=== PATIENT | male | born 1950 | race Caucasian/White ===

== ENCOUNTER → 2016-07-30 | Outpatient (CLI) | payer OTHER ==
[~2016-07-30] MED LIST: GLIM1TAB2 PO; LISI-729 PO; SIMV5TAB2 PO; SITA50TA5 PO
[2016-07-30 10:54] LABS: HEMATOCRIT 40.7 % (42-52); MEAN CELL VOLUME 90.6 fL (80-100); MEAN CORPUSCULAR HEMOGLOBIN 30.3 pg (25-34); MEAN CORPUSCULAR HGB CONC 33.4 g/dl (32-36); MEAN PLATELET VOLUME 10.7 fL (7.4-10.4); PLATELET COUNT 194 K/uL (130-400); RED BLOOD COUNT 4.49 M/uL (4.7-6.1); WHITE BLOOD COUNT 7.93 K/uL (4.8-10.8)
[2016-07-30 11:22] LABS: ALT/SGPT 26 U/L (12-78); AST/SGOT 13 U/L (15-37); BLOOD UREA NITROGEN 26 mg/dl (7-18); BUN/CREATININE RATIO 18.6 (10-20); CALCIUM 8.5 mg/dl (8.5-10.1); CARBON DIOXIDE 29 mmol/L (21-32); CHLORIDE 108 mmol/L (98-107); GLUCOSE 111 mg/dl (70-99); POTASSIUM 4.3 mmol/L (3.5-5.1); SODIUM 144 mmol/L (136-145)
[2016-07-30 11:33] LABS: ALB/GLOB RATIO 1.4 (0.9-2); ALKALINE PHOSPHATASE 79 U/L (45-117); CHOLESTEROL 100 mg/dl (0-200); CHOLESTEROL/HDL RATIO 2.6; HDL CHOLESTEROL 39 mg/dl; LDL CHOLESTEROL CALCULATED 47 mg/dl; TRIGLYCERIDES 70 mg/dl (0-150); VERY LOW DENSITY LIPOPROT CALC 14 mg/dl
[2016-07-30 11:34] LABS: ESTIMATED AVERAGE GLUCOSE 146 mg/dl; HA1C FLAG Normal (Normal)
== END | disposition home or self-care (01) ==
LOC: C.LABBC 08:21
PROVIDERS: ATTEND Internal Medicine Geriatric Medicine
DX: I10 Essential (primary) hypertension (principal); E78.5 Hyperlipidemia, unspecified; E11.65 Type 2 diabetes mellitus with hyperglycemia

== ENCOUNTER 2017-02-09 13:37 | Emergency (ER) | payer OTHER ==
[~2017-02-09] VITALS: Ht 188 cm; Wt 113.7 kg
[2017-02-09 13:47] VITALS: TEMP 36.9; Ht 188 cm; Wt 113.7 kg
[2017-02-09] MEDS ORDERED: LISI-729 PO (14:53)
[2017-02-09] MEDS ORDERED: SITA50TA5 PO (14:53)
[2017-02-09] MEDS ORDERED: SIMV5TAB2 PO (14:53)
[2017-02-09] MEDS ORDERED: GLIM1TAB2 PO (14:53)
[2017-02-09 14:58] LABS: BASO % 0.2 %; BASO ABS # 0.02 K/uL (0-0.2); COMPLETE YES; EOS % 1.4 %; IG% 0.3 %; LYMPH % 12.1 %; LYMPH ABS # 1.27 K/uL (1.2-3.4); MEAN CELL VOLUME 88.3 fL (80-100); MEAN CORPUSCULAR HEMOGLOBIN 30.2 pg (25-34); MEAN CORPUSCULAR HGB CONC 34.3 g/dl (32-36); MEAN PLATELET VOLUME 10.3 fL (7.4-10.4); MONO % 6.3 %; NEUT % 79.7 %; PLATELET COUNT 163 K/uL (130-400); RED BLOOD COUNT 4.53 M/uL (4.7-6.1); WHITE BLOOD COUNT 10.53 K/uL (4.8-10.8)
[2017-02-09] MEDS ORDERED: OPTIRAY 320 IV PRN (15:15)
[2017-02-09 15:20] LABS: BUN/CREATININE RATIO 18.9 (10-20); CALCIUM 8.8 mg/dl (8.5-10.1); CREATININE 1.4 mg/dl (0.60-1.40); POTASSIUM 3.8 mmol/L (3.5-5.1)
--- NOTE | 2017-02-09 15:45 | DIAGNOSTIC IMAGING REPORT ---
CT SCAN OF THE ABDOMEN AND PELVIS WITH IV CONTRAST CLINICAL HISTORY: Left lower quadrant abdominal pain. COMPARISON STUDY: Renal ultrasound dated 08/05/13. TECHNIQUE: Following the IV administration of 116 cc of Optiray 320, CT scan of the abdomen and pelvis is performed from the lung bases to the proximal femora. Images are reviewed in the axial, sagittal, and coronal planes. IV contrast was administered without complication. Automated dose control exposure was utilized. A dose lowering technique was utilized adhering to the principles of ALARA. The examination is degraded by motion artifact. CT DOSE: 1106.39 mGy.cm FINDINGS: Lung bases: The heart is normal in size and without pericardial effusion. There is elevation right hemidiaphragm and bibasilar atelectasis. No airspace consolidation or pleural effusion is seen emphysema is suggested. Liver: The contrast-enhanced liver is normal in size, contour, and attenuation. There is no intrahepatic biliary ductal dilatation. The hepatic veins and portal veins are patent. Gallbladder: Unremarkable. Spleen: Normal in size and attenuation. Pancreas: There is moderate fatty atrophy of the pancreas. There is mild inflammatory stranding seen around the pancreatic head no peripancreatic fluid is seen. The gland enhances homogeneously. The splenic vein is patent. No upper abdominal fluid collection is identified. Adrenal glands: Unremarkable. Kidneys: The contrast enhanced kidneys demonstrate cortical atrophy end are without hydronephrosis. The kidneys enhance symmetrically. There are numerous (greater than 20) bilateral renal cysts. The largest measures 8 cm and arises from the lower pole of the right kidney. Additional subcentimeter cortical hypodensities also likely represent cysts but are too small for definitive characterization. Abdominal vasculature: The abdominal aorta is normal in course and caliber noting mild atherosclerotic calcification. Bowel: The small bowel and colon are normal in course and caliber. The appendix is well-visualized and normal. Peritoneum: There is no intraperitoneal free air or abdominal ascites. There is a small fat-containing umbilical hernia. Lymphadenopathy: None. Pelvic viscera: The bladder, prostate, and seminal vesicles are normal as visualized. Skeletal structures: There are bilateral pars defects at L5. No anterolisthesis is seen at L5-S1. No lytic or blastic lesions are seen. IMPRESSION: Findings are most consistent with mild acute pancreatitis. Correlation with clinical findings and serum amylase/lipase levels will be required. Electronically signed by: Skip Mario M.D. 02/09/2017 3:44 PM Dictated Date/Time: 02/09/2017 3:38 PM
[2017-02-09 16:42] VITALS: O2SAT 98
[2017-02-09 16:53] LABS: URINE APPEARANCE CLEAR (CLEAR); URINE BILIRUBIN NEG (NEG); URINE COLOR YELLOW; URINE EPITHELIAL CELL AUTO 0-5 /lpf (0-5); URINE NITRITE NEG (NEG); URINE SPECIFIC GRAVITY > 1.045 (1.000-1.030); UROBILINOGEN NEG (NEG); ZZUR CULT IF INDIC CLEAN CATCH NO
[2017-02-09 16:54] LABS: MANUAL MICROSCOPIC REQUIRED? NO; REVIEW REQ? NO
[2017-02-09 17:45] VITALS: BP 128/63; PULSE 78
--- NOTE | 2017-02-09 20:13 | EMERGENCY ROOM VISIT NOTE ---
History Report prepared by [place]: Nilay Finn Under the Supervision of: Dr. Bakari River D.O. First contact with patient: 14:08 Chief Complaint: UNABLE TO VOID Stated Complaint: DIFFICULTING W/URINATION, CONSTIPATION History of Present Illness The patient is a 66 year old male who presents to the Emergency Room with complaints of inability to void that began today. He was able to urinate around two hours ago, but states that he still feels he needs to urinate. He also notes that he had a small bowel movement earlier today, but is having lower abdominal pain that is consistent with constipation. He notes the pain is in his left lower quadrant and comes and goes intermittently. He notes it is normally relieved after having a bowel movement. He denies any headache, chest pain, shortness of breath, nausea, vomiting, or abnormal urinary symptoms. He denies any back pain weakness or numbness. He currently feels like he needs to urinate. No urinary frequency, urgency or dysuria. Source of History: patient Onset: today Position: other () Symptom Intensity: moderate Quality: other (Unable to void) Timing: intermittent Associated Symptoms: + abdominal pain, No headache, No chest pain, No SOB, No nausea, No vomiting, No back pain, No diarrhea, No urinary symptoms (no burning), No weakness, No numbness Review of Systems See HPI for pertinent positives & negatives. A total of 10 systems reviewed and were otherwise negative. Past Medical & Surgical Medical Problems: (1) HTN (hypertension) (2) IBS (irritable bowel syndrome) Family History Omitted secondary to the patient's age. Social History Smoking Status: Never Smoker Smokeless Tobacco Use: No Drug Use: none Occupation Status: retired Current/Historical Medications Scheduled Glimepiride (Glimepiride), 1 TAB PO DAILY Simvastatin (Zocor), 5 MG PO QPM Sitagliptin-Metformin Hcl (Janumet), 1 TAB PO BID Miscellaneous Medications Lisinopril (Prinivil), 5 MG PO Allergies Coded Allergies: No Known Allergies (Unverified , 02/09/17) Physical Exam Vital Signs Date Time Temp Pulse Resp B/P (MAP) Pulse Ox O2 Delivery O2 Flow Rate FiO2 02/09/17 17:45 78 18 128/63 02/09/17 16:42 83 17 117/73 98 02/09/17 13:47 36.9 82 20 142/53 99 Room Air Physical Exam GENERAL: alert, well appearing, well nourished, no distress, non-toxic, sitting up in the chair. EYE EXAM: normal conjunctiva OROPHARYNX: no exudate, no erythema, lips, buccal mucosa, and tongue normal and mucous membranes are moist NECK: supple, no nuchal rigidity, no adenopathy, non-tender LUNGS: Clear to auscultation. Normal chest wall mechanics HEART: no murmurs, S1 normal and S2 normal ABDOMEN: abdomen soft, faint tenderness in the LLQ, normo-active bowel sounds, no masses, no rebound or guarding. BACK: Back is symmetrical on inspection and there is no deformity, no midline tenderness, no CVA tenderness. SKIN: no rashes and no bruising UPPER EXTREMITIES: upper extremities are grossly normal. LOWER EXTREMITIES: No pitting edema. NEURO EXAM: Normal sensorium, cranial nerves II-XII grossly intact, normal speech, no gross weakness of arms, no gross weakness of legs. Medical Decision & Procedures ER Provider Diagnostic Interpretation: Radiology results as stated below per my review and the radiologist's interpretation: CT SCAN OF THE ABDOMEN AND PELVIS WITH IV CONTRAST CLINICAL HISTORY: Left lower quadrant abdominal pain. COMPARISON STUDY: Renal ultrasound dated 08/05/13. TECHNIQUE: Following the IV administration of 116 cc of Optiray 320, CT scan of the abdomen and pelvis is performed from the lung bases to the proximal femora. Images are reviewed in the axial, sagittal, and coronal planes. IV contrast was administered without complication. Automated dose control exposure was utilized. A dose lowering technique was utilized adhering to the principles of ALARA. The examination is degraded by motion artifact. CT DOSE: 1106.39 mGy.cm FINDINGS: Lung bases: The heart is normal in size and without pericardial effusion. There is elevation right hemidiaphragm and bibasilar atelectasis. No airspace consolidation or pleural effusion is seen emphysema is suggested. Liver: The contrast-enhanced liver is normal in size, contour, and attenuation. There is no intrahepatic biliary ductal dilatation. The hepatic veins and portal veins are patent. Gallbladder: Unremarkable. Spleen: Normal in size and attenuation. Pancreas: There is moderate fatty atrophy of the pancreas. There is mild inflammatory stranding seen around the pancreatic head no peripancreatic fluid is seen. The gland enhances homogeneously. The splenic vein is patent. No upper abdominal fluid collection is identified. Adrenal glands: Unremarkable. Kidneys: The contrast enhanced kidneys demonstrate cortical atrophy end are without hydronephrosis. The kidneys enhance symmetrically. There are numerous (greater than 20) bilateral renal cysts. The largest measures 8 cm and arises from the lower pole of the right kidney. Additional subcentimeter cortical hypodensities also likely represent cysts but are too small for definitive characterization. Abdominal vasculature: The abdominal aorta is normal in course and caliber noting mild atherosclerotic calcification. Bowel: The small bowel and colon are normal in course and caliber. The appendix is well-visualized and normal. Peritoneum: There is no intraperitoneal free air or abdominal ascites. There is a small fat-containing umbilical hernia. Lymphadenopathy: None. Pelvic viscera: The bladder, prostate, and seminal vesicles are normal as visualized. Skeletal structures: There are bilateral pars defects at L5. No anterolisthesis is seen at L5-S1. No lytic or blastic lesions are seen. IMPRESSION: Findings are most consistent with mild acute pancreatitis. Correlation with clinical findings and serum amylase/lipase levels will be required. Electronically signed by: Skip Mario M.D. 02/09/2017 3:44 PM Dictated Date/Time: 02/09/2017 3:38 PM Laboratory Results 02/09/17 14:45 Red Blood Count 4.53, Mean Corpuscular Volume 88.3, Mean Corpuscular Hemoglobin 30.2, Mean Corpuscular Hemoglobin Concent 34.3, Mean Platelet Volume 10.3, Neutrophils (%) (Auto) 79.7, Lymphocytes (%) (Auto) 12.1, Monocytes (%) (Auto) 6.3, Eosinophils (%) (Auto) 1.4, Basophils (%) (Auto) 0.2, Neutrophils # (Auto) 8.40, Lymphocytes # (Auto) 1.27, Monocytes # (Auto) 0.66, Eosinophils # (Auto) 0.15, Basophils # (Auto) 0.02 02/09/17 14:45 Test 02/09/17 14:45 02/09/17 16:35 White Blood Count 10.53 K/uL (4.8-10.8) Red Blood Count 4.53 M/uL (4.7-6.1) Hemoglobin 13.7 g/dL (14.0-18.0) Hematocrit 40.0 % (42-52) Mean Corpuscular Volume 88.3 fL (80-100) Mean Corpuscular Hemoglobin 30.2 pg (25-34) Mean Corpuscular Hemoglobin Concent 34.3 g/dl (32-36) Platelet Count 163 K/uL (130-400) Mean Platelet Volume 10.3 fL (7.4-10.4) Neutrophils (%) (Auto) 79.7 % Lymphocytes (%) (Auto) 12.1 % Monocytes (%) (Auto) 6.3 % Eosinophils (%) (Auto) 1.4 % Basophils (%) (Auto) 0.2 % Neutrophils # (Auto) 8.40 K/uL (1.4-6.5) Lymphocytes # (Auto) 1.27 K/uL (1.2-3.4) Monocytes # (Auto) 0.66 K/uL (0.11-0.59) Eosinophils # (Auto) 0.15 K/uL (0-0.5) Basophils # (Auto) 0.02 K/uL (0-0.2) RDW Standard Deviation 40.3 fL (36.4-46.3) RDW Coefficient of Variation 12.5 % (11.5-14.5) Immature Granulocyte % (Auto) 0.3 % Immature Granulocyte # (Auto) 0.03 K/uL (0.00-0.02) Anion Gap 8.0 mmol/L (3-11) Est Creatinine Clear Calc Drug Dose 67.7 ml/min Estimated GFR () 59.4 Estimated GFR (Non- 51.3 BUN/Creatinine Ratio 18.9 (10-20) Calcium Level 8.8 mg/dl (8.5-10.1) Total Bilirubin 0.7 mg/dl (0.2-1) Direct Bilirubin 0.3 mg/dl (0-0.2) Aspartate Amino Transf (AST/SGOT) 16 U/L (15-37) Alanine Aminotransferase (ALT/SGPT) 25 U/L (12-78) Alkaline Phosphatase 99 U/L (45-117) Total Protein 7.5 gm/dl (6.4-8.2) Albumin 3.8 gm/dl (3.4-5.0) Lipase 202 U/L (73-393) Urine Color YELLOW Urine Appearance CLEAR (CLEAR) Urine pH 5.0 (4.5-7.5) Urine Specific Mobile > 1.045 (1.000-1.030) Urine Protein NEG (NEG) Urine Glucose (UA) 3+ (NEG) Urine Ketones TRACE (NEG) Urine Occult Blood NEG (NEG) Urine Nitrite NEG (NEG) Urine Bilirubin NEG (NEG) Urine Urobilinogen NEG (NEG) Urine Leukocyte Esterase NEG (NEG) Urine WBC (Auto) 0 /hpf (0-5) Urine RBC (Auto) 0-4 /hpf (0-4) Urine Hyaline Casts (Auto) 1-5 /lpf (0-5) Urine Epithelial Cells (Auto) 0-5 /lpf (0-5) Urine Bacteria (Auto) NEG (NEG) Laboratory results per my review. ED Course ED COURSE: Vital signs were reviewed and showed hypertension. The patients medical record was reviewed The above diagnostic studies were performed and reviewed. ED treatments and interventions as stated above. 1408: The patient was evaluated in room C9. A complete history and physical examination was performed. 1441: The patient's bladder scan showed 0 ml's of urine in the bladder. 1730: The patient is not in any pain and would not like any pain medications. 1735: Upon reevaluation, the patient is resting. I discussed my findings with the patient and he understands and agrees with the treatment plan. The patient remained stable while under my care. The patient appeared well at the time of discharge. Medical Decision Differential diagnoses includes but is not limited to gastritis, peptic ulcer disease, GERD, gallbladder disease, pancreatitis, small bowel obstruction, acute coronary syndrome, pericarditis, ischemic bowel, irritable bowel disease, irritable bowel syndrome, appendicitis, diverticulitis, malignancy, hernia, urinary tract infection, torsion, perforation, trauma, infectious. Patient is a 66-year-old male who presents the ER for difficulty voiding. He does admit that he voided 2 hours prior to arrival. He feels like he still has to slightly urinate. This has been going on over the past weekend. Patient also complains of mild left lower quadrant abdominal pain which has been coming and going intermittently. He notes that this is the typical pain that he gets when he becomes constipated. He notes the pain is relieved with a bowel movement. His abdominal exam is completely benign. Post void was negative. CBC along with BMP, LFTs, bilirubin and lipase was negative. UA was clean. CT of abdomen and pelvis shows mild pancreatitis. Patient is eating and drinking. He has no tenderness in the epigastric region. Offered pain medications but declined. Patient was discharged follow-up with PCP. Discussed with Pt concerning signs and symptoms to watch out for. Pt was instructed to follow up with their PCP and discussed with the patient their option to return to the ED at anytime for persistent or worsening symptoms. The appropriate anticipatory guidance and out-patient management, including indications for return to the emergency department, were explained at length to the patient and understood. Medication Reconcilliation Current Medication List: was personally reviewed by me Blood Pressure Screening Patient's blood pressure: Elevated blood pressure Blood pressure disposition: Elevated BP felt to be situational Impression Primary Impression: Pancreatitis Additional Impression: Abdominal pain Scribe Attestation The scribe's documentation has been prepared under my direction and personally reviewed by me in its entirety. I confirm that the note above accurately reflects all work, treatment, procedures, and medical decision making performed by me. Departure Information Dispostion Home / Self-Care Referrals No Doctor, Assigned (PCP) Forms HOME CARE DOCUMENTATION FORM, IMPORTANT VISIT INFORMATION, WORK / SCHOOL INSTRUCTIONS Patient Instructions My [facility], Pancreatitis Acute Dc Additional Instructions Please follow up with your primary care doctor or if you are a student, [facility] with in the next 24 hours. Any worsening of your symptoms, please return to the ED immediately. This includes any fevers greater than 100.4, worsening pain, chest pain, shortness breath, persistent nausea, vomiting, unable to eat or drink, or any other concerning signs or symptoms from your standpoint. You were found to have a blood pressure greater than 120 systolic over 90 diastolic. Due to the new Medicare guidelines, we are now recommending that you follow up with your primary care doctor in regards to this elevated blood pressure. Problem Qualifiers Primary Impression: Pancreatitis Chronicity: acute Pancreatitis type: unspecified pancreatitis type Acute pancreatitis complication: unspecified Qualified Codes: K85.90 - Acute pancreatitis without necrosis or infection, unspecified Additional Impression: Abdominal pain Abdominal location: lower abdomen, unspecified Qualified Codes: R10.30 - Lower abdominal pain, unspecified
== END 2017-02-09 17:49 | disposition home or self-care (01) ==
LOC: C.EDB 13:40 → C.EDC 17:49
DX: K85.90 Acute pancreatitis without necrosis or infection, unspecified (principal); R10.30 Lower abdominal pain, unspecified; I10 Essential (primary) hypertension

== ENCOUNTER → 2017-02-23 | Outpatient (CLI) | payer OTHER ==
[2017-02-23 12:24] LABS: ESTIMATED AVERAGE GLUCOSE 237 mg/dl; HA1C FLAG Normal (Normal)
== END | disposition home or self-care (01) ==
LOC: C.LABBC 08:07
PROVIDERS: ATTEND Internal Medicine Geriatric Medicine
DX: Z00.00 Encounter for general adult medical examination without abnormal findings (principal); I10 Essential (primary) hypertension; E11.9 Type 2 diabetes mellitus without complications; D64.9 Anemia, unspecified

== ENCOUNTER → 2017-08-18 | Outpatient (CLI) | payer OTHER ==
[2017-08-18 13:14] LABS: HEMOGLOBIN A1C 6.5 % (4.5-5.6)
[2017-08-18 13:32] LABS: ALBUMIN 3.7 gm/dl (3.4-5.0); ALT/SGPT 29 U/L (12-78); AST/SGOT 17 U/L (15-37); BLOOD UREA NITROGEN 18 mg/dl (7-18); CALCIUM 8.8 mg/dl (8.5-10.1); CARBON DIOXIDE 27 mmol/L (21-32); CHOLESTEROL 83 mg/dl (0-200); CREATININE 1.11 mg/dl (0.60-1.40); GLUCOSE 116 mg/dl (70-99); SODIUM 142 mmol/L (136-145)
[2017-08-18 13:44] LABS: ALKALINE PHOSPHATASE 84 U/L (45-117); LDL CHOLESTEROL CALCULATED 34 mg/dl; TOTAL PROTEIN 6.6 gm/dl (6.4-8.2)
== END | disposition home or self-care (01) ==
LOC: C.LABBFT 09:02
PROVIDERS: ATTEND Physician Assistant
DX: E11.22 Type 2 diabetes mellitus with diabetic chronic kidney disease (principal); N18.3 Chronic kidney disease, stage 3 (moderate)

== ENCOUNTER → 2017-11-17 | Outpatient (CLI) | payer OTHER ==
[2017-11-17 12:19] LABS: BASO % 0.6 %; BASO ABS # 0.04 K/uL (0-0.2); EOS % 3.1 %; EOS ABS # 0.21 K/uL (0-0.5); HEMATOCRIT 41.5 % (42-52); HEMOGLOBIN 13.7 g/dL (14.0-18.0); IG# 0.01 K/uL (0.00-0.02); LYMPH % 25.1 %; LYMPH ABS # 1.71 K/uL (1.2-3.4); MEAN CELL VOLUME 91.8 fL (80-100); MEAN CORPUSCULAR HEMOGLOBIN 30.3 pg (25-34); MONO % 11.6 %; MONO ABS # 0.79 K/uL (0.11-0.59); NEUT % 59.5 %; NEUT ABS # 4.05 K/uL (1.4-6.5); PLATELET COUNT 179 K/uL (130-400); RED CELL DISTRIBUTION WIDTH CV 12.9 % (11.5-14.5); WHITE BLOOD COUNT 6.81 K/uL (4.8-10.8)
[2017-11-17 12:42] LABS: T3 FREE 3.23 pg/ml (2.30-4.20)
[2017-11-17 12:46] LABS: BLOOD UREA NITROGEN 25 mg/dl (7-18); CARBON DIOXIDE 32 mmol/L (21-32); CREATININE 1.14 mg/dl (0.60-1.40); GLUCOSE 103 mg/dl (70-99); SODIUM 141 mmol/L (136-145)
[2017-11-17 12:56] LABS: HEMOGLOBIN A1C 6.6 % (4.5-5.6)
[2017-11-18 17:21] LABS: MICROSOMAL AB <1 IU/ML (<9)
== END | disposition home or self-care (01) ==
LOC: C.LABBFT 07:30
PROVIDERS: ATTEND Physician Assistant
DX: E11.9 Type 2 diabetes mellitus without complications (principal); E55.9 Vitamin D deficiency, unspecified; I10 Essential (primary) hypertension; D64.9 Anemia, unspecified; R94.6 Abnormal results of thyroid function studies

== ENCOUNTER 2023-09-08 14:37 | Inpatient (IN) ==
--- NOTE | 2023-09-08 14:57 | Emergency Department Note ---
ED Provider Note History of Present Illness Chief Complaint: Fall Time Seen by Provider: 09/08/23 14:57 History obtained from the patient and his sister who is at the bedside This is a 73-year-old male with a history of type 2 diabetes, BPH, obesity, hypertension, hyperlipidemia, accompanied by his sister, who presents to the emergency department via EMS for a fall that occurred earlier today with suspicion that the patient was on the floor for about 4 hours. Patient was also noted to be tachycardic and febrile. Patient is not know why he fell out of his chair. He thinks he may have slid out. His sister believes he may have fallen asleep. Patient states that he was able to crawl to a phone and believes he was on the floor for about 3 to 4 hours. He does not have any pain. Does not believe he injured anything. Patient states that over the past few days he has felt like he has had a cold with congestion, sneezing. He did not take anything for his temperature today, did not know that he had a fever. EMS noted that there was an empty bottle of Jardiance on the patient's countertop near his chair. Patient states that he has not taken any of his medications over the past 1 to 2 months. When asked why he is not taking his medications, he states that "maybe it is time for the Lord to take me". He denies any suicidal ideation or thoughts of hurting himself. States that he would not kill himself, especially by taking medication. He states that the Jardiance bottle on his table has not been refilled for 1 to 2 months. His sister states that he does not routinely see a medical provider. Patient lives alone in an apartment. He performs his activities of daily living. Currently denies any headache, neck pain, back pain, chest pain, shortness of breath, abdominal pain, nausea, or vomiting his leg swell intermittently, nothing worse than normal. No history of CHF. Home Medications Medication Instructions Recorded Confirmed Type No Known Home Medications 09/08/23 09/08/23 History Allergies Allergy/AdvReac Type Severity Reaction Status Date / Time No Known Allergies Allergy Verified 09/08/23 16:08 Past Med/Surg History Medical History HLD (hyperlipidemia) HTN (hypertension) DM type 2 (diabetes mellitus, type 2) BPH (benign prostatic hyperplasia) Chronic osteoarthritis Gastroesophageal reflux disease Obesity, Class I, BMI 30-34.9 Diabetic peripheral neuropathy Surgical History History of cataract surgery History of tonsillectomy History of colonoscopy Hx of straightening of nasal septum Family History Father , age 52 Myocardial infarction Mother Hypertension Peptic ulcer disease Other No family history of adverse response to anesthesia Denies family history of Ovarian cancer Prostate cancer Breast cancer Colorectal cancer Social History Smoking Status: Never smoker Second Hand Exposure: No; Do You Dip or Chew Tobacco: No; Hx Alcohol Use: No Hx Substance Use: No Preferred Language: Tajik Communication Ability: Effective Visual Impairment: No Limitations Hearing Ability: Normal 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: No Beliefs That Will Affect Care: None marital status: Single Current Living Situation: Alone current occupational status: employed 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 Feels Safe at Home: Yes Safety Concerns: Feels Safe At This Time Dental Care, Regularly: No Physical Activity Frequency: Does not Exercise Assistive Devices: Cane Physical Exam Vital Signs Vital Signs - 24 hr 09/08/23 15:53 09/08/23 16:00 09/08/23 16:02 Temperature Temperature Source Pulse Rate 120 H 113 H 108 H Pulse Rate from SpO2 Sensor Respiratory Rate 14 19 18 Blood Pressure 150/77 H Blood Pressure Mean 101 Pulse Oximetry 09/08/23 16:10 09/08/23 16:20 09/08/23 16:30 Temperature Temperature Source Pulse Rate 108 H 106 H 107 H Pulse Rate from SpO2 Sensor 108 H 106 H 107 H Respiratory Rate 20 22 22 Blood Pressure 158/81 H Blood Pressure Mean 106 Pulse Oximetry 94 92 09/08/23 16:40 09/08/23 16:50 09/08/23 17:00 Temperature Temperature Source Pulse Rate 104 H 108 H 104 H Pulse Rate from SpO2 Sensor 105 H 108 H 103 H Respiratory Rate 22 26 H 21 Blood Pressure 151/73 H Blood Pressure Mean 99 Pulse Oximetry 93 92 94 09/08/23 17:16 09/08/23 17:30 09/08/23 18:48 Temperature 37.3 C Temperature Source Oral Pulse Rate 102 H 93 H Pulse Rate from SpO2 Sensor Respiratory Rate 18 Blood Pressure 153/83 H Blood Pressure Mean 106 Pulse Oximetry 09/08/23 19:00 Temperature Temperature Source Pulse Rate 92 H Pulse Rate from SpO2 Sensor Respiratory Rate 19 Blood Pressure Blood Pressure Mean Pulse Oximetry CONSTITUTIONAL: Well developed, slightly unkempt, in no distress HEAD: Normocephalic, atraumatic. EYES: conjunctivae normal, extraocular muscles intact. ENMT: External ears normal. Nose with normal external appearance, no congestion. Oral mucous membranes dry. Oropharynx otherwise normal. NECK: Full active range of motion without eliciting any pain. No midline spinous process tenderness. RESPIRATORY: Breathing unlabored and symmetric. Lungs clear to auscultation bilaterally. No wheeze, rales, or rhonchi. CARDIOVASCULAR: Tachycardic rate and regular rhythm. No murmurs, rubs, or gallops. CHEST: Nontender, no crepitus. ABDOMEN: Normal bowel sounds. Soft, nontender, no peritonitis. No masses. No CVA tenderness bilaterally. GENITOURINARY: Female RN gas worker present. No obvious rashes or lesions. Patient able to urinate on command. MUSCULOSKELETAL: Moves all extremities at all joints without pain or difficulty. Venous stasis changes in bilateral lower extremities with 1+ pitting edema bilaterally. SKIN: [place], warm, dry. NEUROLOGIC: Awake, alert, oriented to person, year, president, does not know the location. Gaze is conjugate. Face symmetric, speech normal. Moves head and all four extremities spontaneously. PSYCHIATRIC: Appropriate. Normal affect Course Administered Medications Enoxaparin Sodium (Enoxaparin Inj 40 Mg/0.4 Ml Syr) 40 mg SQ HS FREDO Stop: 10/08/23 22:24 Last Admin: 09/08/23 23:25 Dose: 40 mg Documented By: SRW Fluticasone Propionate (Fluticasone Propionate Na Spr 16 Gm Btl) 2 sprays NA HS FREDO Stop: 10/08/23 21:14 Last Admin: 09/08/23 23:25 Dose: 2 sprays Documented By: SRW Guaifenesin (Guaifenesin 600 Mg Tabcr) 600 mg PO Q12 FREDO Stop: 10/09/23 09:04 Last Admin: 09/09/23 10:31 Dose: 600 mg Documented By: MILLIE Ceftriaxone Sodium 2,000 mg/ (Dextrose) 50 mls @ 100 mls/hr IV Q24H [facility]; Protocol Stop: 09/11/23 15:59 Last Admin: 09/09/23 15:29 Dose: 100 mls/hr Documented By: MILLIE Sodium Chloride (Nss) 500 mls @ 80 mls/hr IV .Q6H15M FREDO Stop: 10/09/23 12:29 Last Admin: 09/09/23 13:41 Dose: 80 mls/hr Documented By: MILLIE Insulin Aspart (Insulin Aspart Per Unit Charge) 0 units SC ACHS FREDO Stop: 10/08/23 21:14 Last Admin: 09/09/23 13:41 Dose: 4 units Documented By: MILLIE Co-signed By: NICKY Admin: 09/09/23 09:31 Dose: 7 units Documented By: MILLIE Co-signed By: ABDIRAHMAN Admin: 09/08/23 22:55 Dose: 5 units Documented By: MICHELLE Co-signed By: JM Insulin Glargine (Lantus Per Unit Charge) 20 units SQ BID [facility] Stop: 10/08/23 21:14 Last Admin: 09/09/23 09:31 Dose: 20 units Documented By: MILLIE Co-signed By: ABDIRAHMAN Admin: 09/08/23 22:55 Dose: 20 units Documented By: MICHELLE Co-signed By: JM Lactobacillus Acidophilus (Advanced Probiotic 625 Mg Capsule) 1,250 mg PO DAILY [facility] Stop: 10/09/23 12:44 Last Admin: 09/09/23 13:42 Dose: 1,250 mg Documented By: MILLIE Lisinopril (Lisinopril 20 Mg Tab) 20 mg PO QAM FREDO Stop: 10/09/23 08:59 Last Admin: 09/09/23 08:35 Dose: 20 mg Documented By: MILLIE Sodium Chloride (Sodium Chloride 0.65% Na Soln 45 Ml (Ashley)) 1 sprays NA TID FREDO Stop: 10/09/23 13:59 Last Admin: 09/09/23 15:29 Dose: 1 sprays Documented By: MILLIE Discontinued Medications Acetaminophen (Acetaminophen 500 Mg Tab) 1,000 mg PO NOW STA Stop: 09/08/23 15:17 Last Admin: 09/08/23 16:02 Dose: 1,000 mg Documented By: ANDREW Sodium Chloride (Nss) 500 mls @ 999 mls/hr IV .Q31M ONE Stop: 09/08/23 15:27 Last Infusion: 09/08/23 16:42 Dose: Infused Documented By: [facility] [place] Admin: 09/08/23 15:16 Dose: 999 mls/hr Documented By: TEREZA Sodium Chloride (Nss) 1,000 mls @ 999 mls/hr IV .Q1H1M ONE Stop: 09/08/23 15:59 Last Infusion: 09/08/23 16:42 Dose: Infused Documented By: [facility] [place] Admin: 09/08/23 15:16 Dose: 999 mls/hr Documented By: TEREZA Ceftriaxone Sodium (Rocephin) 2,000 mg in 50 mls @ 100 mls/hr IV NOW STA Stop: 09/08/23 16:22 Last Infusion: 09/08/23 16:42 Dose: Infused Documented By: [facility] [place] Admin: 09/08/23 16:06 Dose: 100 mls/hr Documented By: ANDREW Magnesium Sulfate/Dextrose (Magnesium Sulfate / D5w) 1 gm in 100 mls @ 50 mls/hr IV ONE ONE Stop: 09/09/23 13:58 Last Infusion: 09/09/23 14:28 Dose: Infused Documented By: Admin: 09/09/23 12:23 Dose: 50 mls/hr Documented By: MILLIE Influenza Virus Vaccine (Influenza Vaccine High-Dose (Hd-Iiv4) Pf 65+ 0.7ml Syr) 0.7 ml IM .ONCE ONE Stop: 09/09/23 09:01 Last Admin: 09/09/23 09:04 Dose: Not Given Documented By: MILLIE Pneumococcal 20-Valent Conj Vacc (Pneumococcal Vaccine (Pcv20) 20-Hanna Conj-Dip Crm/Pf 0.5 Ml Syr) 0.5 ml IM .ONCE ONE Stop: 09/09/23 09:01 Last Admin: 09/09/23 09:04 Dose: Not Given Documented By: MILLIE Potassium Chloride (Potassium Chloride Crtab 20 Meq Tabcr) 20 meq PO NOW STA Stop: 09/09/23 09:15 Last Admin: 09/09/23 09:32 Dose: 20 meq Documented By: MILLIE Medical Decision Making Differential Diagnosis Sepsis, bacteremia, viral upper respiratory infection, pneumonia, UTI, electrolyte imbalance, fracture, intracranial hemorrhage, concussion, neurovascular injury, rhabdomyolysis, dehydration, among other pathology Laboratory Data 09/09/23 04:28 09/09/23 04:28 Lab Results 09/08/23 09/08/23 09/08/23 Range/Units 14:45 14:47 15:23 WBC 9.50 (4.8-10.8) K/ul RBC 4.96 (4.70-6.10) M/uL Hgb 14.5 (14.0-18.0) g/dl Hct 44.1 (42.0-52.0) % MCV 88.9 (80.0-100.0) fL MCH 29.2 (25.0-34.0) pg MCHC 32.9 (32.0-36.0) g/dL RDW Std Deviation 41.9 (36.4-46.3) fL RDW Coeff of Duyen 12.9 (11.5-14.5) % Plt Count 142 (130-400) K/uL MPV 10.8 (9.4-12.4) fL Immature Gran % (Auto) 0.6 % Neut % (Auto) 86.1 % Lymph % (Auto) 4.9 % [place] % (Auto) 8.1 % Eos % (Auto) 0.1 % Baso % (Auto) 0.2 % Neut # (Auto) 8.17 H (1.40-6.50) K/uL Lymph # (Auto) 0.47 L (1.20-3.40) K/uL [place] # (Auto) 0.77 H (0.11-0.59) K/uL Eos # (Auto) 0.01 (0.00-0.50) K/uL Baso # (Auto) 0.02 (0.00-0.20) K/uL Immature Gran # (Auto) 0.06 (0.01-0.20) K/uL Sodium 137 (136-145) mmol/L Potassium 4.2 (3.5-5.1) mmol/L Chloride 103 (98-107) mmol/L Carbon Dioxide 27 (21-32) mmol/L Anion Gap 7 (3-11) BUN 21 (6-23) mg/dl Creatinine 1.21 (0.6-1.4) mg/dl Est Cr Clr Drug Dosing 67.4 ml/min Est GFR ( Amer) 67.5 ml/min Est GFR (Non-Af Amer) 58.2 ml/min BUN/Creatinine Ratio 17.4 (10-20) Glucose 412 H* (70-99(Fasting)) mg/dl POC Glucose 350 H* (70-99) mg/dl Lactate 1.4 (0.4-2.0) mmol/L Calcium 9.1 (8.6-10.3) mg/dl Magnesium 1.6 L (1.7-2.4) mg/dl Total Bilirubin 1.1 H (0.2-1.0) mg/dl AST 18 (13-39) U/L ALT 14 (7-52) U/L Alkaline Phosphatase 119 H (34-104) U/L Total Creatine Kinase 307 H (30-223) U/L Troponin I High Sens 8.6 (0-20) pg/ml Total Protein 7.2 (6.0-8.3) gm/dl Albumin 4.0 (3.4-5.0) gm/dl Globulin 3.2 (2.5-4.0) gm/dl Albumin/Globulin Ratio 1.3 (0.9-2) Lipase 14 (11-82) U/L Procalcitonin 0.05 (0-0.5) ng/ml Adenovirus (PCR) Not Detected (NotDetected) B. pertussis DNA (PCR) Not Detected (NotDetected) B.parapertussis DNA PCR Not Detected (NotDetected) C. pneumoniae DNA (PCR) Not Detected (NotDetected) Coronavirus OC43 (PCR) DETECTED A (NotDetected) Coronavirus HKU1 (PCR) Not Detected (NotDetected) Coronavirus 229E (PCR) Not Detected (NotDetected) SARS-CoV-2 (PCR) Not Detected (NotDetected) Coronavirus NL63 (PCR) Not Detected (NotDetected) Human Metapneumovir PCR Not Detected (NotDetected) Influenza Type A (PCR) Not Detected (NotDetected) Influenza Type B (PCR) Not Detected (NotDetected) M. pneumoniae (PCR) Not Detected (NotDetected) Parainfluenza 1 (PCR) Not Detected (NotDetected) Parainfluenza 2 (PCR) Not Detected (NotDetected) Parainfluenza 3 (PCR) Not Detected (NotDetected) Parainfluenza 4 (PCR) Not Detected (NotDetected) RSV (PCR) Not Detected (NotDetected) Entero/Rhino (PCR) Not Detected (NotDetected) Staphylococcus sp PCR DETECTED A (NotDetected) Bld Cult ID Panel PCR See PCR Comment (NotDetected) Imaging Data Radiologist's Impression: Chest X-Ray 09/08/23 14:57 XR chest 1V portable HISTORY: 73 years-old Male sepsis acute sepsis COMPARISON: None TECHNIQUE: AP view the chest FINDINGS: Cardiomediastinal and hilar silhouettes are within normal limits. Mild right hemidiaphragmatic elevation. Subsegmental bibasilar atelectasis again noted. No pneumothorax, pleural effusion or airspace consolidation. Bones appear grossly intact. IMPRESSION: No acute process. ACT 112: Negative or not required by law. The above report was generated using voice recognition software. It may contain grammatical, syntax or spelling errors. Electronically signed by: Sandip Fry M.D. 09/08/2023 3:[address] 09/08/23 15:16 CT OF THE HEAD WITHOUT CONTRAST CLINICAL HISTORY: fall, on floor, meets sepsis COMPARISON STUDY: No previous studies for comparison. CT DOSE: 1250.21 mGy.cm TECHNIQUE: Helical axial images of the head were obtained without IV contrast. Automated exposure control was utilized for the study. A dose lowering technique was utilized adhering to the principles of ALARA. FINDINGS: This exam is moderately compromised by motion artifact. No acute intracranial hemorrhage, midline shift or mass effect is present. Ventricular system is unremarkable. Basal cisterns are patent. There are no extra axial collections. There are no findings to suggest acute dural sinus thrombosis or acute territorial infarct. Right maxillary sinus is largely opacified. There are secretions within the right maxillary sinus. Tiny air-fluid level within the left maxillary sinus is noted. There is moderate ethmoid sinus mucosal thickening. No displaced calvarial fractures are identified. IMPRESSION: 1. No acute intracranial findings. Exam moderately compromised by motion artifact. 2. Largely opacified right maxillary sinus which contains secretions. This may reflect acute sinusitis. ACT 112: Negative or not required by law. Electronically signed by: Song Salmeron M.D. 09/08/2023 4:05 PM MDM Narrative 73-year-old male with a history above presents to the emergency department via EMS after falling/sliding out of his chair 3 or 4 hours ago, was able to crawl to the phone to contact his sister. States that he has had a cold recently and called off work due to not feeling well today. Has not been taking his medications over the past 1 to 2 months. Was noted to be tachycardic and febrile at 122 and 101.7 respectively at triage. Patient slightly unkempt, is oriented to person, year, and president. No obvious injuries were identified on thorough exam. He has venous stasis changes in bilateral lower extremities with suspected baseline lower extremity edema. [id number] glucose 350. He denies any suicidal ideation but does appear to be depressed. See above. An IV was inserted and labs were obtained. Patient was given 1.5 L IV fluids initially. Did not administer full sepsis volume due to his history of lower extremity edema. Tylenol administered for the fever. Blood cultures initiated. Labs: Lactate normal. No leukocytosis or anemia. No electrolyte disturbances. Glucose 412. Magnesium minimally low at 1.6. CK slightly elevated at 307. Troponin normal. Glucose 3+, no evidence of infection. Respiratory panel is POSITIVE for coronavirus OC43. An order was placed for continuous cardiac monitoring at time of evaluation demonstrates sinus tachycardia with a rate in the 110s. Patient was treated with ceftriaxone empirically for possible sepsis. EKG: Sinus tachycardia with a rate of 112. Prolonged [place] interval at 244. No priors available to compare. No acute ST elevation. Possible anterior infarct, possible Q waves in V3 and V4. Chest x-ray negative for acute process CT head: Demonstrating opacified right maxillary sinus, otherwise no acute process Suspect acute dehydration secondary to upper respiratory infection resulting in him sliding out of his chair today. Patient is noncompliant with his medications and I suspect he may be depressed given our conversation as above. His heart rate improved to the low 100s on reevaluation. He otherwise rested comfortably and did demonstrate ability to ambulate to the restroom and back. Case reviewed with ED attending Dr. De La Rosa. We we will recommend admission to ensure the patient is hydrated, his medications are managed more appropriately, and outpatient care is coordinated. He is agreeable with this plan. I spoke with Dr. De La Fuente with [facility] hospitalist group who agrees to admit the patient. Impression Acute dehydration, Coronavirus infection, Fall from chair Discharge Plan Visit Data Chief Complaint: Fall ED Provider: Mahesh De La Rosa ED Midlevel Provider: Leonel Somers Discharge Problem: Acute dehydration, Coronavirus infection, Fall from chair Patient Disposition: Admitted As Inpatient Condition: Fair Discharge Instructions Interventions: ED Discharge Assessment Last Done: 09/08/23 21:45 Addendum September 09, 2023 04:12 HPI: The patient is a 73-year-old gentleman with past medical history of hypertension, hyperlipidemia, type 2 diabetes who presents to the emergency department via EMS accompanied by his sister for evaluation of an unwitnessed fall where it was suspected the patient may have been on the ground for 4 hours and may have slid out of his chair when he was sleeping. Patient was able to crawl to her phone to call for help. They report that he has been feeling ill with cough congestion but is not aware of any fevers. Patient did express depressed mood and may not be compliant with medications. A/P: Unwitnessed fall with presentation to emergency department with possible sepsis/SIRS. Patient was febrile to 38.7 with heart rate in the 120s and respiratory in the mid 20s with blood pressure stable and O2 saturation 94% on room air. IV fluid hydration provided though with caution in the setting of chronic lower extremity edema. And so 30 cc/kg of IV fluids deferred. Empiric ceftriaxone provided given SIRS/sepsis presentation. Vital signs did improve following defervesced since with IV fluids and APAP. EKG without overt acute ischemia. Chest x-ray negative for acute cardiopulmonary process. CT of the head negative for ICH. Evidence of sinusitis is suggested. WBC within normal limits with neutrophilia though no left shift. H/H and platelets within normal limits. Blood sugar 412 however chemistry without metabolic acidosis. Magnesium 1.6, LFTs unremarkable. Initial CPK mildly above normal at 300. Lipase within normal limits. UA with out convincing evidence of infection. Respiratory viral panel/[employer] was positive for coronavirus OC 43. Admission was recommended given the patient's presentation of SIRS and uncontrolled diabetes. Patient ultimately was in agreement. Patient was for to hospital service for admission and further management. Further management per admitting team. I was consulted by the Advanced Practice Provider and was substantively involved in the patient's visit.This includes aspects of the HPI, MDM, diagnostic interpretations, and disposition/plan. I discussed the case with the NAT and agree with the findings and plan as documented in NAT Yonis's note.
[2023-09-08] MEDS: SODIUM CHLORIDE 0.9% 1,000 ML IV ONE (15:16)
[2023-09-08] MEDS: SODIUM CHLORIDE 0.9% 500 ML IV ONE (15:16)
[2023-09-08 15:33] LABS: Appearance Urine Clear (Clear); Bacteria Urine Automated Negative (Negative); Bilirubin Urine Negative (Negative); Blood Urine Trace (Negative); Cast Urine Automated 0 /lpf (0-5); Color Urine Yellow; Epithelial Cell Urine Auto 0-5 /lpf (0-5); Glucose Urine UA 3+ (Negative); Ketones Urine Trace (Negative); Leukocyte Esterase Urine Negative (Negative); Nitrite Urine Negative (Negative); Protein Urine Trace (Negative); RBC Urine Automated 0-4 /hpf (0-4); Specific Gravity Urine 1.034 (1.000-1.030); Urobilinogen Urine Negative (Negative); WBC Urine Automated 0 /hpf (0-5)
--- NOTE | 2023-09-08 15:41 | XRay Report ---
XR chest 1V portable HISTORY: 73 years-old Male sepsis acute sepsis COMPARISON: None TECHNIQUE: AP view the chest FINDINGS: Cardiomediastinal and hilar silhouettes are within normal limits. Mild right hemidiaphragmatic elevat ion. Subsegmental bibasilar atelectasis again noted. No pneumothorax, pleural effusion or airspace co nsolidation. Bones appear grossly intact. IMPRESSION: No acute process. ACT 112: Negative or not required by law. The above report was generated using voice recognition software. It may contain grammatical, syntax o r spelling errors. Electronically signed by: Sandip Fry M.D. 09/08/2023 3:39 PM
[2023-09-08 15:43] LABS: Basophils # (auto) 0.02 K/uL (0.00-0.20); Basophils % (auto) 0.2 %; Eosinophils # (auto) 0.01 K/uL (0.00-0.50); Eosinophils % (auto) 0.1 %; Hematocrit (blood only) 44.1 % (42.0-52.0); Hemoglobin 14.5 g/dl (14.0-18.0); Immature Granulocytes # (auto) 0.06 K/uL (0.01-0.20); Immature Granulocytes % (auto) 0.6 %; Lymphocytes # (auto) 0.47 K/uL (1.20-3.40); Lymphocytes % (auto) 4.9 %; Mean Corpuscular Hemoglobin 29.2 pg (25.0-34.0); Mean Corpuscular Hgb Conc 32.9 g/dL (32.0-36.0); Mean Corpuscular Volume 88.9 fL (80.0-100.0); Mean Platelet Volume 10.8 fL (9.4-12.4); Monocytes # (auto) 0.77 K/uL (0.11-0.59); Monocytes % (auto) 8.1 %; Neutrophils # (auto) 8.17 K/uL (1.40-6.50); Neutrophils % (auto) 86.1 %; Platelet Count 142 K/uL (130-400); RDW Coefficient of Variation 12.9 % (11.5-14.5); RDW Standard Deviation 41.9 fL (36.4-46.3); Red Blood Count 4.96 M/uL (4.70-6.10)
[2023-09-08] MEDS: ACETAMINOPHEN 500 MG TAB PO STA (16:02)
[2023-09-08] MEDS: cefTRIAXone SODIUM 2,000 MG/50 ML BAG IV STA (16:06)
--- NOTE | 2023-09-08 16:06 | CT Scan Report ---
CT OF THE HEAD WITHOUT CONTRAST CLINICAL HISTORY: fall, on floor, meets sepsis COMPARISON STUDY: No previous studies for comparison. CT DOSE: 1250.21 mGy.cm TECHNIQUE: Helical axial images of the head were obtained without IV contrast. Automated exposure con trol was utilized for the study. A dose lowering technique was utilized adhering to the principles o f ALARA. FINDINGS: This exam is moderately compromised by motion artifact. No acute intracranial hemorrhage, m idline shift or mass effect is present. Ventricular system is unremarkable. Basal cisterns are patent . There are no extra axial collections. There are no findings to suggest acute dural sinus thrombosis or acute territorial infarct. Right maxillary sinus is largely opacified. There are secretions withi n the right maxillary sinus. Tiny air-fluid level within the left maxillary sinus is noted. There is moderate ethmoid sinus mucosal thickening. No displaced calvarial fractures are identified. IMPRESSION: 1. No acute intracranial findings. Exam moderately compromised by motion artifact. 2. Largely opacified right maxillary sinus which contains secretions. This may reflect acute sinusiti s. ACT 112: Negative or not required by law. Electronically signed by: Song Salmeron M.D. 09/08/2023 4:05 PM
[2023-09-08 16:15] LABS: Albumin Globulin Ratio 1.3 (0.9-2); BUN Creatinine Ratio 17.4 (10-20); Bilirubin,Total 1.1 mg/dl (0.2-1.0); Calcium 9.1 mg/dl (8.6-10.3); Creatinine Clr Calc Pharmacy 67.4 ml/min; Est GFR (African American) 67.5 ml/min; Est GFR (Non-African American) 58.2 ml/min; Globulin 3.2 gm/dl (2.5-4.0); Magnesium 1.6 mg/dl (1.7-2.4); Potassium 4.2 mmol/L (3.5-5.1); Total Protein 7.2 gm/dl (6.0-8.3); Troponin I High Sensitivity 8.6 pg/ml (0-20)
[2023-09-08 16:18] LABS: Adenovirus PCR Not Detected (NotDetected); Bordetella parapertussis PCR Not Detected (NotDetected); Bordetella pertussis PCR Not Detected (NotDetected); Chlamydia pneumoniae PCR Not Detected (NotDetected); Coronavirus 229E PCR Not Detected (NotDetected); Coronavirus CoV-2 (COVID19)PCR Not Detected (NotDetected); Coronavirus HKU1 PCR Not Detected (NotDetected); Coronavirus NL63 PCR Not Detected (NotDetected); Coronavirus OC43PCR DETECTED (NotDetected); Human Metapneumovirus PCR Not Detected (NotDetected); Influenza A PCR Not Detected (NotDetected); Influenza B PCR Not Detected (NotDetected); Mycoplasma pneumoniae PCR Not Detected (NotDetected); Parainfluenza Virus 1 PCR Not Detected (NotDetected); Parainfluenza Virus 2 PCR Not Detected (NotDetected); Parainfluenza Virus 3 PCR Not Detected (NotDetected); Parainfluenza Virus 4 PCR Not Detected (NotDetected); Respiratory Syncytial VirusPCR Not Detected (NotDetected); Rhinovirus/Enterovirus PCR Not Detected (NotDetected)
--- NOTE | 2023-09-08 19:54 | History & Physical Report ---
Date of Service September 08, 2023 Assessment & Plan (1) Sepsis: Plan: Uncertain if patient has an underlying bacterial infection. No UTI, no pneumonia. Febrile and tachycardic on arrival. Evidence of possible sinusitis on CT head, however, patient denies any pain in ears or sinuses today and no purulent discharge. He does have evidence of a viral infection which is likely responsible for his fever and symptoms. Empiric Rocephin has been started in the ER and will be continued pending clinical improvement and culture results. (2) Fall from chair: Plan: Ambulatory with a cane at baseline. He reports not sleeping well overnight and fell asleep today sliding out of his new recliner which is slippery. Denies chest pain or SOB and no evidence of acute ischemia on EKG with normal HS t roponin. No stroke like symptoms and CT head is negative. Mildly elevated CK likely related to prolonged immobilization on floor today. Trend in am after IVF given in the ER. 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 This on top of chronic insomnia and poorly controlled chronic medical conditions are likely the result for his weakness and decline today. PT/OT to assess. Restart medications for these issues. Get him hooked back in with PCP and consider sleep evaluation as outpatient. I discussed this plan with him and he verbalized understanding. (3) Coronavirus infection: Plan: cont supportive care efforts including nasal steroids. Not requiring oxygen and no evidence of pneumonia on CXR (4) DM type 2 (diabetes mellitus, type 2): Plan: Uncontrolled at baseline 2/2 noncompliance. Pt with evidence of glucosuria. Historically was taking Jardiance, metformin and glyburide. Consider restarting at discharge. While inpatient cont with basal bolus insulin. Historically has peripheral neuropathy in his feet and needs podiatric consultation as outpatient. Defer to PCP. (5) HTN (hypertension): Plan: chronic, uncontrolled 2/2 noncompliance with medication. Pt also reports depending on frozen dinners which are high in sodium. Restart lisinopril in am. Repeat BMP in two weeks time for monitoring. (6) HLD (hyperlipidemia): Plan: History of being on simvastatin, but no longer taking. Lipid panel in am. DVT proph: Lovenox Full Code confirmed with him on admission Dispo-to telemetry I spent a total of 75 minutes coordinating, documenting, and providing care for this patient excluding time spent in the performance of separately billed services DO Chuy Macias Hospitalist History of Present Illness Chief Complaint: fall Primary Care Provider: No PCP 73-year-old diabetic man presents via EMS after a fall at home. He was weak evidently from a upper respiratory tract infection that has been ongoing and laid on the floor for several hours. He was able to crawl to the phone and call for help. His sister assisted with initial history and felt her brother may have fallen asleep and slid out of his chair. The patient himself did not know why he fell. Over the past few days he reports sneezing coughing and nasal congestion and bio fire reveals a coronavirus etiology. EMS noted an empty bottle of Jardiance on the countertop near his chair but patient admits to not taking any medications over the past 1 to 2 months. The patient lives alone and is still working in some capacity. He is reportedly able to complex activities of daily living. He is unclear if he is driving. Initial workup in the ER included a head CT revealing possible right maxillary sinusitis and a chest x- ray that is clear. CBC is unrevealing and CHEM panel is within normal limits other than a creatinine which is 1.2 and at his baseline per review of previous inpatient records over the years. Also abnormal as his glucose which is 412 and magnesium which is 1.6. CK is also mildly elevated at 307. Procalcitonin was normal at 0.05. He was given broad-spectrum antibiotics including Rocephin for possible sepsis and given 1.5 L of IV fluids. EKG revealed sinus tachycardia with a rate of 117 with first-degree AV block. After fluid resuscitation heart rate improved to less than 100. Highly sensitive troponin was normal at 8.6. Sneezing for a few days Nasal itchiness, denies sinus pain runny nose some coughing, nonproductive + fevers or chills at home x several days, febrile on arrival today didn't take anything OTC at home prior to arrival no issues appetite makes food for himself and eats frozen Still drives and lives alone. 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 and reports no SOB or chest pain Last worked yesterday 7a-3p no diarrhea/vomiting stopped taking diabetic meds bc "I didn't think I was making any time with it"- clarified that he felt it wasn't working taking metformin, micheal was taking BP meds but stopped those, also he isn't sure why was historically on lis/HCTZ, jardiance 10, metformin 1000mg BID, and glyburide and simvastatin for dyslipidemia not sleeping at night much including last night reports falling asleep at work on occasion has a sister and nephrew that lives locally--doesn't have a medical POA but reports to me that "Jose Gonzalez" another nephew of his would be the one to make his medical decisions for him if he becomes incapacitated. Jose lives in [place]. Received care with [facility] a couple of years ago, but also mentioned seeing Moshe Cantor (heraclio) and Praful Lu. He is fine with following up and starting to see someone with [facility] post hospital stay. Allergies Allergy/AdvReac Type Severity Reaction Status Date / Time No Known Allergies Allergy Verified 09/08/23 16:08 Home Medications Medication Instructions Recorded Confirmed Type No Known Home Medications 09/08/23 09/08/23 History Past Med/Surg History Medical History HLD (hyperlipidemia) HTN (hypertension) DM type 2 (diabetes mellitus, type 2) BPH (benign prostatic hyperplasia) Chronic osteoarthritis Gastroesophageal reflux disease Obesity, Class I, BMI 30-34.9 Diabetic peripheral neuropathy Surgical History History of cataract surgery History of tonsillectomy History of colonoscopy Hx of straightening of nasal septum Family History Father , age 52 Myocardial infarction Mother Hypertension Peptic ulcer disease Other No family history of adverse response to anesthesia Denies family history of Ovarian cancer Prostate cancer Breast cancer Colorectal cancer Social History Smoking Status: Never smoker Second Hand Exposure: No; Do You Dip or Chew Tobacco: No; Hx Alcohol Use: No Hx Substance Use: No Preferred Language: Slovak Communication Ability: Effective Visual Impairment: No Limitations Hearing Ability: Normal Magazine Supervisor Required: No Beliefs That Will Affect Care: None marital status: Single Current Living Situation: Alone current occupational status: employed 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 Feels Safe at Home: Yes Dental Care, Regularly: No Physical Activity Frequency: Does not Exercise Assistive Devices: None Physical Exam Physical Exam: CONSTITUTIONAL: WNWD, vitals as above, generally well-appearing, NAD EYES: pupils are round and equal bilaterally, normal conjunctivae, no scleral icterus ENT: external ear and nose normal, oropharynx clear, no TM abnormality on the right, cerumen in external canal blocking visualization of TM on the left, no maxillary or ethmoid sinus tenderness NECK: trachea midline, no lymphadenopathy RESPIRATORY: clear to auscultation bilaterally, no crackles, rales or wheezes, normal respiratory effort CARDIOVASCULAR: regular rate and rhythm, S1 and 2 heard without murmurs, gallops or rubs, no JVD, no peripheral edema, CHEST: inspection of chest was normal GASTROINTESTINAL: soft, nontender, ND, no guarding MUSCULOSKELETAL: strength 5/5 throughout, head is normocephalic and atraumatic SKIN: warm and dry, erythema along anterior lower extremities and flakiness of skin with poor care of feet noted, poor nail care, no clear wounds present on feet. NEUROLOGIC: No facial palsy, no dysarthria. CN 2-12 grossly intact, no sensory deficit, normal cognition, normal speech, no tremor PSYCHIATRIC: alert cooperative and oriented to person, place and time. Euthymic mood, makes good eye contact, language grossly intact, recent and remote memory grossly intact. Results & Data Results & Data Vital Signs (Past 12 Hours) Vital Signs Temp Pulse Resp BP Pulse Ox O2 Del Method 09/08/23 18:48 93 H 09/08/23 17:16 37.3 C 09/08/23 17:00 104 H 21 151/73 H 94 09/08/23 16:50 108 H 26 H 92 09/08/23 16:40 104 H 22 93 09/08/23 16:30 107 H 22 158/81 H 09/08/23 16:20 106 H 22 92 09/08/23 16:10 108 H 20 94 09/08/23 16:02 108 H 18 150/77 H 03/12/24 16:00 113 H 19 09/08/23 15:53 120 H 14 09/08/23 15:40 108 H 21 09/08/23 15:30 109 H 12 09/08/23 15:00 117 H 21 135/79 09/08/23 15:00 95 Room Air 09/08/23 14:50 38.7 C H 122 H 26 H 139/100 94 Room Air Laboratory Results Short CBC 09/08/23 Range/Units 15:23 WBC 9.50 (4.8-10.8) K/ul Hgb 14.5 (14.0-18.0) g/dl Hct 44.1 (42.0-52.0) % Plt Count 142 (130-400) K/uL BMP 09/08/23 15:23 Sodium 137 Potassium 4.2 Chloride 103 Carbon Dioxide 27 BUN 21 Creatinine 1.21 Glucose 412 H* Calcium 9.1 Cardiac Enzymes 09/08/23 Range/Units 15:23 Total Creatine Kinase 307 H (30-223) U/L Liver Function 09/08/23 Range/Units 15:23 Total Bilirubin 1.1 H (0.2-1.0) mg/dl AST 18 (13-39) U/L ALT 14 (7-52) U/L Alkaline Phosphatase 119 H (34-104) U/L Albumin 4.0 (3.4-5.0) gm/dl Urine 09/08/23 Range/Units Unknown Urine Color Yellow Urine Appearance Clear (Clear) Urine pH 5.0 (4.5-7.5) Ur Specific [place] 1.034 H (1.000-1.030) Urine Protein Trace H (Negative) Urine Glucose (UA) 3+ H (Negative) Diagnostic Findings Chest X-Ray 09/08/23 14:57 XR chest 1V portable HISTORY: 73 years-old Male sepsis acute sepsis COMPARISON: None TECHNIQUE: AP view the chest FINDINGS: Cardiomediastinal and hilar silhouettes are within normal limits. Mild right hemidiaphragmatic elevation. Subsegmental bibasilar atelectasis again noted. No pneumothorax, pleural effusion or airspace consolidation. Bones appear grossly intact. IMPRESSION: No acute process. ACT 112: Negative or not required by law. The above report was generated using voice recognition software. It may contain grammatical, syntax or spelling errors. Electronically signed by: Sandip Fry M.D. 09/08/2023 3:[address] 09/08/23 15:16 CT OF THE HEAD WITHOUT CONTRAST CLINICAL HISTORY: fall, on floor, meets sepsis COMPARISON STUDY: No previous studies for comparison. CT DOSE: 1250.21 mGy.cm TECHNIQUE: Helical axial images of the head were obtained without IV contrast. Automated exposure control was utilized for the study. A dose lowering technique was utilized adhering to the principles of ALARA. FINDINGS: This exam is moderately compromised by motion artifact. No acute intracranial hemorrhage, midline shift or mass effect is present. Ventricular system is unremarkable. Basal cisterns are patent. There are no extra axial collections. There are no findings to suggest acute dural sinus thrombosis or acute territorial infarct. Right maxillary sinus is largely opacified. There are secretions within the right maxillary sinus. Tiny air-fluid level within the left maxillary sinus is noted. There is moderate ethmoid sinus mucosal thickening. No displaced calvarial fractures are identified. IMPRESSION: 1. No acute intracranial findings. Exam moderately compromised by motion artifact. 2. Largely opacified right maxillary sinus which contains secretions. This may reflect acute sinusitis. ACT 112: Negative or not required by law. Electronically signed by: Song Salmeron M.D. 09/08/2023 4:05 PM Code Status & VTE Plan VTE Prophylaxis Plan VTE Prophylaxis will be ordered: Yes (2) Fall from chair Encounter type: initial encounter Qualified Code(s): W07.XXXA - Fall from chair, initial encounter
[2023-09-08] MEDS ORDERED: GLUCAGON FOR INJ 1 MG VIAL SQ PRN (21:14)
[2023-09-08] MEDS ORDERED: GLUCOSE 40% GEL 15 GM TUBE PO PRN (21:14)
[2023-09-08] MEDS ORDERED: DEXTROSE 50% 50 ML SYRINGE IV PRN (21:14)
[2023-09-08] MEDS ORDERED: CARBOHYDRATES FOR HYPOGLYCEMIA PO PRN (21:14)
[2023-09-08] MEDS ORDERED: GLUCOSE 10 TAB/TUBE PO PRN (21:14)
[2023-09-08] MEDS: INSULIN ASPART PER UNIT CHARGE SC SCH (22:55)
[2023-09-08] MEDS: LANTUS PER UNIT CHARGE SQ SCH (22:55)
[2023-09-08] MEDS: ENOXAPARIN INJ 40 MG/0.4 ML SYR SQ SCH (23:25)
[2023-09-08] MEDS: FLUTICASONE PROPIONATE NA SPR 16 GM BTL SCH (23:25)
[2023-09-09 04:53] LABS: Hematocrit (blood only) 38.4 % (42.0-52.0); Hemoglobin 12.4 g/dl (14.0-18.0); Mean Corpuscular Hemoglobin 28.6 pg (25.0-34.0); Mean Corpuscular Hgb Conc 32.3 g/dL (32.0-36.0); Mean Corpuscular Volume 88.5 fL (80.0-100.0); Mean Platelet Volume 10.8 fL (9.4-12.4); Platelet Count 141 K/uL (130-400); RDW Coefficient of Variation 12.8 % (11.5-14.5); RDW Standard Deviation 41.5 fL (36.4-46.3); Red Blood Count 4.34 M/uL (4.70-6.10); White Blood Count 7.57 K/ul (4.8-10.8)
[2023-09-09 05:17] LABS: BUN Creatinine Ratio 20.7 (10-20); Calcium 8.5 mg/dl (8.6-10.3); Chol HDL Ratio 2.6 (0-5); Creatinine Clr Calc Pharmacy 93.6 ml/min; Est GFR (African American) 97.8 ml/min; Est GFR (Non-African American) 84.4 ml/min; Potassium 3.5 mmol/L (3.5-5.1)
[2023-09-09 07:15] LABS: Estimated Average Glucose 352 mg/dl; Hemoglobin A1C 13.9 % (4.5-5.6)
[2023-09-09] MEDS: lisinopril 20 MG TAB PO SCH (08:35)
[2023-09-09] MEDS: INFLUENZA VACCINE HIGH-DOSE (HD-IIV4) PF 65+ 0.7mL SYR IM ONE (09:04)
[2023-09-09] MEDS: PNEUMOCOCCAL VACCINE (PCV20) 20-VAL CONJ-DIP CRM/PF 0.5 ML SYR IM ONE (09:04)
--- NOTE | 2023-09-09 09:15 | Hospitalist Progress Note ---
Date of Service September 09, 2023 Assessment & Plan (1) Sepsis: Plan: Uncertain if patient has an underlying bacterial infection. No UTI, no pneumonia. Febrile and tachycardic on arrival. Procalcitonin negative. Evidence of possible sinusitis on CT head, however, patient denies any pain in ears or sinuses today and no purulent discharge. He does have evidence of a viral infection which is likely responsible for his fever and symptoms. Empiric Rocephin has been started in the ER and will be continued pending clinical improvement and culture results. Blood cultx - one positive for staph - will await final results. repeated blood cultx. Cont. abx as above for now (2) Fall from chair: Plan: Ambulatory with a cane at baseline. He reports not sleeping well overnight and fell asleep sliding out of his new recliner which is slippery. Denies chest pain or SOB and no evidence of acute ischemia on EKG with normal HS troponin. No stroke like symptoms and CT head is negative. Mildly elevated CK likely related to prolonged immobilization. Trend in am after IVF given in the ER. CK elevated c/w mild rhabdo - cont. with IVF. 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 This on top of chronic insomnia and poorly controlled chronic medical conditions are likely the result for his weakness and decline now. PT/OT to assess. Restart medications for these issues. Get him hooked back in with PCP and consider sleep evaluation as outpatient. Admitting provider discussed this plan with him and he verbalized understanding. (3) Coronavirus infection: Plan: cont supportive care efforts including nasal steroids. Not requiring oxygen and no evidence of pneumonia on CXR Cont. w/ guaifenesin, flutter valve, IS (4) DM type 2 (diabetes mellitus, type 2): Plan: Current Hgb A1c 13.9% Uncontrolled at baseline 2/2 noncompliance. Pt with evidence of glucosuria. Historically was taking Jardiance, metformin and glyburide. Consider restarting at discharge. While inpatient cont with basal bolus insulin. Historically has peripheral neuropathy in his feet and needs podiatric consultation as outpatient. Defer to PCP. (5) HTN (hypertension): Plan: chronic, uncontrolled 2/2 noncompliance with medication. Pt also reports depending on frozen dinners which are high in sodium. Restart lisinopril in am. Repeat BMP in two weeks time for monitoring. (6) HLD (hyperlipidemia): Plan: History of being on simvastatin, but no longer taking. Lipid panel in am. DVT proph: Lovenox Full Code confirmed with him on admission Dispo-to telemetry Admission and Anticipated Discharge Date Admission Date: September 08, 2023 Subjective Pt seen in follow up after fall, fever, found positive for coronavirus Pt also not taking his DM meds, A1c elevated at 13.9% Currently laying in bed in NAD, reports feeling somewhat better but still weak no current fever, chills, chest pain, shortness of breath, reports some rhinorrhea and some cough no abd. pain, n/v Review of Systems Review of Systems: All systems reviewed & are unremarkable except as noted in Subjective Physical Exam Physical Exam: CONSTITUTIONAL: WNWD in NAD EYES: pupils are round and equal bilaterally, normal conjunctivae, no scleral icterus ENT: external ear and nose normal, oropharynx clear NECK: supple RESPIRATORY: normal respiratory effort , minimal rhonchi, no wheezing CARDIOVASCULAR: regular rate and rhythm, S1 and 2 heard without murmurs, gallops or rubs, no JVD, no peripheral edema, CHEST: inspection of chest normal GASTROINTESTINAL: soft, nontender, ND, no guarding MUSCULOSKELETAL: head is normocephalic and atraumatic, moves extremities SKIN: warm and dry, erythema along anterior lower extremities and flakiness of skin with poor care of feet noted, poor nail care, no clear wounds present on feet. NEUROLOGIC: awake, alert, answers appropriately, no facial asymmetry, speech fluent, moves extremities Results & Data Results & Data Vital Signs (Past 12 Hours) Vital Signs Temp Pulse Pulse Resp BP BP Pulse Ox 09/09/23 08:31 36.9 C 71 18 143/55 H 96 09/09/23 07:16 68 09/09/23 03:33 36.8 C 77 20 144/69 H 96 09/08/23 22:27 36.7 C 93 H 18 157/90 H 97 09/08/23 21:44 134/84 96 O2 Del Method 09/09/23 08:31 Room Air 09/09/23 07:16 09/09/23 03:33 Room Air 09/08/23 22:27 Room Air 09/08/23 21:44 Laboratory Results 09/09/23 09/09/23 09/08/23 Range/Units 08:28 04:28 Unknown WBC 7.57 (4.8-10.8) K/ul RBC 4.34 L (4.70-6.10) M/uL Hgb 12.4 L (14.0-18.0) g/dl Hct 38.4 L (42.0-52.0) % MCV 88.5 (80.0-100.0) fL MCH 28.6 (25.0-34.0) pg MCHC 32.3 (32.0-36.0) g/dL RDW Std Deviation 41.5 (36.4-46.3) fL RDW Coeff of Duyen 12.8 (11.5-14.5) % Plt Count 141 (130-400) K/uL MPV 10.8 (9.4-12.4) fL Immature Gran % (Auto) % Neut % (Auto) % Lymph % (Auto) % [place] % (Auto) % Eos % (Auto) % Baso % (Auto) % Neut # (Auto) (1.40-6.50) K/uL Lymph # (Auto) (1.20-3.40) K/uL [place] # (Auto) (0.11-0.59) K/uL Eos # (Auto) (0.00-0.50) K/uL Baso # (Auto) (0.00-0.20) K/uL Immature Gran # (Auto) (0.01-0.20) K/uL Sodium 142 (136-145) mmol/L Potassium 3.5 (3.5-5.1) mmol/L Chloride 110 H (98-107) mmol/L Carbon Dioxide 26 (21-32) mmol/L Anion Gap 6 (3-11) BUN 18 (6-23) mg/dl Creatinine 0.87 D (0.6-1.4) mg/dl Est Cr Clr Drug Dosing 93.6 ml/min Est GFR ( Amer) 97.8 ml/min Est GFR (Non-Af Amer) 84.4 ml/min BUN/Creatinine Ratio 20.7 H (10-20) Glucose 142 H (70-99(Fasting)) mg/dl POC Glucose 150 H (70-99) mg/dl Estimat Average Glucose 352 mg/dl Hemoglobin A1c 13.9 H (4.5-5.6) % Lactate (0.4-2.0) mmol/L Calcium 8.5 L (8.6-10.3) mg/dl Magnesium (1.7-2.4) mg/dl Total Bilirubin (0.2-1.0) mg/dl AST (13-39) U/L ALT (7-52) U/L Alkaline Phosphatase (34-104) U/L Total Creatine Kinase (30-223) U/L Troponin I High Sens (0-20) pg/ml Total Protein (6.0-8.3) gm/dl Albumin (3.4-5.0) gm/dl Globulin (2.5-4.0) gm/dl Albumin/Globulin Ratio (0.9-2) Triglycerides 73 (0-150) mg/dl Cholesterol 103 (0-200) mg/dl LDL Cholesterol, Calc 48 mg/dl VLDL Cholesterol, Calc 15 (0-30) mg/dl HDL Cholesterol 40 mg/dl Cholesterol/HDL Ratio 2.6 (0-5) Lipase (11-82) U/L Procalcitonin (0-0.5) ng/ml Urine Color Yellow Urine Appearance Clear (Clear) Urine pH 5.0 (4.5-7.5) Ur Specific [place] 1.034 H (1.000-1.030) Urine Protein Trace H (Negative) Urine Glucose (UA) 3+ H (Negative) Urine Ketones Trace H (Negative) Urine Blood Trace H (Negative) Urine Nitrite Negative (Negative) Urine Bilirubin Negative (Negative) Urine Urobilinogen Negative (Negative) Ur Leukocyte Esterase Negative (Negative) Urine WBC (Auto) 0 (0-5) /hpf Urine RBC (Auto) 0-4 (0-4) /hpf U Hyaline Cast (Auto) 0 (0-5) /lpf U Epithel Cells (Auto) 0-5 (0-5) /lpf Urine Bacteria (Auto) Negative (Negative) Adenovirus (PCR) (NotDetected) B. pertussis DNA (PCR) (NotDetected) B.parapertussis DNA PCR (NotDetected) C. pneumoniae DNA (PCR) (NotDetected) Coronavirus OC43 (PCR) (NotDetected) Coronavirus HKU1 (PCR) (NotDetected) Coronavirus 229E (PCR) (NotDetected) SARS-CoV-2 (PCR) (NotDetected) Coronavirus NL63 (PCR) (NotDetected) Hepatitis C Ab (EIA) Pending Human Metapneumovir PCR (NotDetected) Influenza Type A (PCR) (NotDetected) Influenza Type B (PCR) (NotDetected) M. pneumoniae (PCR) (NotDetected) Parainfluenza 1 (PCR) (NotDetected) Parainfluenza 2 (PCR) (NotDetected) Parainfluenza 3 (PCR) (NotDetected) Parainfluenza 4 (PCR) (NotDetected) RSV (PCR) (NotDetected) Entero/Rhino (PCR) (NotDetected) 09/08/23 09/08/23 09/08/23 Range/Units 22:24 15:23 14:47 WBC 9.50 (4.8-10.8) K/ul RBC 4.96 (4.70-6.10) M/uL Hgb 14.5 (14.0-18.0) g/dl Hct 44.1 (42.0-52.0) % MCV 88.9 (80.0-100.0) fL MCH 29.2 (25.0-34.0) pg MCHC 32.9 (32.0-36.0) g/dL RDW Std Deviation 41.9 (36.4-46.3) fL RDW Coeff of Duyen 12.9 (11.5-14.5) % Plt Count 142 (130-400) K/uL MPV 10.8 (9.4-12.4) fL Immature Gran % (Auto) 0.6 % Neut % (Auto) 86.1 % Lymph % (Auto) 4.9 % [place] % (Auto) 8.1 % Eos % (Auto) 0.1 % Baso % (Auto) 0.2 % Neut # (Auto) 8.17 H (1.40-6.50) K/uL Lymph # (Auto) 0.47 L (1.20-3.40) K/uL [place] # (Auto) 0.77 H (0.11-0.59) K/uL Eos # (Auto) 0.01 (0.00-0.50) K/uL Baso # (Auto) 0.02 (0.00-0.20) K/uL Immature Gran # (Auto) 0.06 (0.01-0.20) K/uL Sodium 137 (136-145) mmol/L Potassium 4.2 (3.5-5.1) mmol/L Chloride 103 (98-107) mmol/L Carbon Dioxide 27 (21-32) mmol/L Anion Gap 7 (3-11) BUN 21 (6-23) mg/dl Creatinine 1.21 (0.6-1.4) mg/dl Est Cr Clr Drug Dosing 67.4 ml/min Est GFR ( Amer) 67.5 ml/min Est GFR (Non-Af Amer) 58.2 ml/min BUN/Creatinine Ratio 17.4 (10-20) Glucose 412 H* (70-99(Fasting)) mg/dl POC Glucose 227 H (70-99) mg/dl Estimat Average Glucose mg/dl Hemoglobin A1c (4.5-5.6) % Lactate 1.4 (0.4-2.0) mmol/L Calcium 9.1 (8.6-10.3) mg/dl Magnesium 1.6 L (1.7-2.4) mg/dl Total Bilirubin 1.1 H (0.2-1.0) mg/dl AST 18 (13-39) U/L ALT 14 (7-52) U/L Alkaline Phosphatase 119 H (34-104) U/L Total Creatine Kinase 307 H (30-223) U/L Troponin I High Sens 8.6 (0-20) pg/ml Total Protein 7.2 (6.0-8.3) gm/dl Albumin 4.0 (3.4-5.0) gm/dl Globulin 3.2 (2.5-4.0) gm/dl Albumin/Globulin Ratio 1.3 (0.9-2) Triglycerides (0-150) mg/dl Cholesterol (0-200) mg/dl LDL Cholesterol, Calc mg/dl VLDL Cholesterol, Calc (0-30) mg/dl HDL Cholesterol mg/dl Cholesterol/HDL Ratio (0-5) Lipase 14 (11-82) U/L Procalcitonin 0.05 (0-0.5) ng/ml Urine Color Urine Appearance (Clear) Urine pH (4.5-7.5) Ur Specific [place] (1.000-1.030) Urine Protein (Negative) Urine Glucose (UA) (Negative) Urine Ketones (Negative) Urine Blood (Negative) Urine Nitrite (Negative) Urine Bilirubin (Negative) Urine Urobilinogen (Negative) Ur Leukocyte Esterase (Negative) Urine WBC (Auto) (0-5) /hpf Urine RBC (Auto) (0-4) /hpf U Hyaline Cast (Auto) (0-5) /lpf U Epithel Cells (Auto) (0-5) /lpf Urine Bacteria (Auto) (Negative) Adenovirus (PCR) Not Detected (NotDetected) B. pertussis DNA (PCR) Not Detected (NotDetected) B.parapertussis DNA PCR Not Detected (NotDetected) C. pneumoniae DNA (PCR) Not Detected (NotDetected) Coronavirus OC43 (PCR) DETECTED A (NotDetected) Coronavirus HKU1 (PCR) Not Detected (NotDetected) Coronavirus 229E (PCR) Not Detected (NotDetected) SARS-CoV-2 (PCR) Not Detected (NotDetected) Coronavirus NL63 (PCR) Not Detected (NotDetected) Hepatitis C Ab (EIA) Human Metapneumovir PCR Not Detected (NotDetected) Influenza Type A (PCR) Not Detected (NotDetected) Influenza Type B (PCR) Not Detected (NotDetected) M. pneumoniae (PCR) Not Detected (NotDetected) Parainfluenza 1 (PCR) Not Detected (NotDetected) Parainfluenza 2 (PCR) Not Detected (NotDetected) Parainfluenza 3 (PCR) Not Detected (NotDetected) Parainfluenza 4 (PCR) Not Detected (NotDetected) RSV (PCR) Not Detected (NotDetected) Entero/Rhino (PCR) Not Detected (NotDetected) 09/08/23 Range/Units 14:45 WBC (4.8-10.8) K/ul RBC (4.70-6.10) M/uL Hgb (14.0-18.0) g/dl Hct (42.0-52.0) % MCV (80.0-100.0) fL MCH (25.0-34.0) pg MCHC (32.0-36.0) g/dL RDW Std Deviation (36.4-46.3) fL RDW Coeff of Duyen (11.5-14.5) % Plt Count (130-400) K/uL MPV (9.4-12.4) fL Immature Gran % (Auto) % Neut % (Auto) % Lymph % (Auto) % [place] % (Auto) % Eos % (Auto) % Baso % (Auto) % Neut # (Auto) (1.40-6.50) K/uL Lymph # (Auto) (1.20-3.40) K/uL [place] # (Auto) (0.11-0.59) K/uL Eos # (Auto) (0.00-0.50) K/uL Baso # (Auto) (0.00-0.20) K/uL Immature Gran # (Auto) (0.01-0.20) K/uL Sodium (136-145) mmol/L Potassium (3.5-5.1) mmol/L Chloride (98-107) mmol/L Carbon Dioxide (21-32) mmol/L Anion Gap (3-11) BUN (6-23) mg/dl Creatinine (0.6-1.4) mg/dl Est Cr Clr Drug Dosing ml/min Est GFR ( Amer) ml/min Est GFR (Non-Af Amer) ml/min BUN/Creatinine Ratio (10-20) Glucose (70-99(Fasting)) mg/dl POC Glucose 350 H* (70-99) mg/dl Estimat Average Glucose mg/dl Hemoglobin A1c (4.5-5.6) % Lactate (0.4-2.0) mmol/L Calcium (8.6-10.3) mg/dl Magnesium (1.7-2.4) mg/dl Total Bilirubin (0.2-1.0) mg/dl AST (13-39) U/L ALT (7-52) U/L Alkaline Phosphatase (34-104) U/L Total Creatine Kinase (30-223) U/L Troponin I High Sens (0-20) pg/ml Total Protein (6.0-8.3) gm/dl Albumin (3.4-5.0) gm/dl Globulin (2.5-4.0) gm/dl Albumin/Globulin Ratio (0.9-2) Triglycerides (0-150) mg/dl Cholesterol (0-200) mg/dl LDL Cholesterol, Calc mg/dl VLDL Cholesterol, Calc (0-30) mg/dl HDL Cholesterol mg/dl Cholesterol/HDL Ratio (0-5) Lipase (11-82) U/L Procalcitonin (0-0.5) ng/ml Urine Color Urine Appearance (Clear) Urine pH (4.5-7.5) Ur Specific [place] (1.000-1.030) Urine Protein (Negative) Urine Glucose (UA) (Negative) Urine Ketones (Negative) Urine Blood (Negative) Urine Nitrite (Negative) Urine Bilirubin (Negative) Urine Urobilinogen (Negative) Ur Leukocyte Esterase (Negative) Urine WBC (Auto) (0-5) /hpf Urine RBC (Auto) (0-4) /hpf U Hyaline Cast (Auto) (0-5) /lpf U Epithel Cells (Auto) (0-5) /lpf Urine Bacteria (Auto) (Negative) Adenovirus (PCR) (NotDetected) B. pertussis DNA (PCR) (NotDetected) B.parapertussis DNA PCR (NotDetected) C. pneumoniae DNA (PCR) (NotDetected) Coronavirus OC43 (PCR) (NotDetected) Coronavirus HKU1 (PCR) (NotDetected) Coronavirus 229E (PCR) (NotDetected) SARS-CoV-2 (PCR) (NotDetected) Coronavirus NL63 (PCR) (NotDetected) Hepatitis C Ab (EIA) Human Metapneumovir PCR (NotDetected) Influenza Type A (PCR) (NotDetected) Influenza Type B (PCR) (NotDetected) M. pneumoniae (PCR) (NotDetected) Parainfluenza 1 (PCR) (NotDetected) Parainfluenza 2 (PCR) (NotDetected) Parainfluenza 3 (PCR) (NotDetected) Parainfluenza 4 (PCR) (NotDetected) RSV (PCR) (NotDetected) Entero/Rhino (PCR) (NotDetected) Medications Administered Current Inpatient Medications Acetaminophen (Acetaminophen 325 Mg Tab) 650 mg PO Q4H PRN PRN Reason: Pain or Fever Stop: 10/08/23 22:24 Dextrose (Dextrose 50% 50 Ml Syringe) 25 - 50 ml IV UD PRN; Protocol PRN Reason: Hypoglycemia Protocol Stop: 10/08/23 21:13 Enoxaparin Sodium (Enoxaparin Inj 40 Mg/0.4 Ml Syr) 40 mg SQ HS FREDO Stop: 10/08/23 22:24 Last Admin: 09/08/23 23:25 Dose: 40 mg Fluticasone Propionate (Fluticasone Propionate Na Spr 16 Gm Btl) 2 sprays NA HS [facility] Stop: 10/08/23 21:14 Last Admin: 09/08/23 23:25 Dose: 2 sprays Glucagon (Glucagon For Inj 1 Mg Vial) 1 mg SQ UD PRN; Protocol PRN Reason: Hypoglycemia Protocol Stop: 10/08/23 21:13 Glucose (Glucose 10 Tab/Tube) 4 - 8 tab PO UD PRN; Protocol PRN Reason: Hypoglycemia Treatment Stop: 10/08/23 21:13 Glucose (Glucose 40% Gel 15 Gm Tube) 15 - 30 gm PO UD PRN; Protocol PRN Reason: Hypoglycemia Protocol Stop: 10/08/23 21:13 Guaifenesin (Guaifenesin 600 Mg Tabcr) 600 mg PO Q12 FREDO Stop: 10/09/23 09:04 Ceftriaxone Sodium 2,000 mg/ (Dextrose) 50 mls @ 100 mls/hr IV Q24H FREDO; Protocol Stop: 09/11/23 15:59 Insulin Aspart (Insulin Aspart Per Unit Charge) 0 units SC ACHS [facility] Stop: 10/08/23 21:14 Last Admin: 09/08/23 22:55 Dose: 5 units Insulin Glargine (Lantus Per Unit Charge) 20 units SQ BID [facility] Stop: 10/08/23 21:14 Last Admin: 09/08/23 22:55 Dose: 20 units Lisinopril (Lisinopril 20 Mg Tab) 20 mg PO QAM [facility] Stop: 10/09/23 08:59 Last Admin: 09/09/23 08:35 Dose: 20 mg Miscellaneous (Carbohydrates For Hypoglycemia ) 15 - 30 gm PO UD PRN PRN Reason: Hypoglycemia Protocol Stop: 10/08/23 21:13 Potassium Chloride (Potassium Chloride Crtab 20 Meq Tabcr) 20 meq PO NOW STA Stop: 09/09/23 09:15 (2) Fall from chair Encounter type: initial encounter Qualified Code(s): W07.XXXA - Fall from chair, initial encounter
[2023-09-09] MEDS: POTASSIUM CHLORIDE CRTAB 20 MEQ TABCR PO STA (09:32)
[2023-09-09 09:41] LABS: Magnesium 1.6 mg/dl (1.7-2.4)
[2023-09-09] MEDS: guaiFENesin 600 MG TABCR PO SCH (10:31)
[2023-09-09 11:26] LABS: A calco-baum cmplx NotReported Not Detected (NotDetected); Bact fragilis Not Reported Not Detected (NotDetected); Blood Culture Id Panel See PCR Comment (NotDetected); E cloacae compx Not Reported Not Detected (NotDetected); Efaecalis Not Reported Not Detected (NotDetected); Efaecium Not Reported Not Detected (NotDetected); Enterobacterales Not Reported Not Detected (NotDetected); Escherichia coli Not Reported Not Detected (NotDetected); H influenzae Not Reported Not Detected (NotDetected); K aerogenes Not Reported Not Detected (NotDetected); Koxytoca Not Reported Not Detected (NotDetected); Kpneumoniae grp Not Reported Not Detected (NotDetected); Lmonocyt Not Reported Not Detected (NotDetected); N meningitidis Not Reported Not Detected (NotDetected); P aeruginosa Not Reported Not Detected (NotDetected); Proteus spp Not Reported Not Detected (NotDetected); Salmonella spp Not Reported Not Detected (NotDetected); Smarcescens Not Reported Not Detected (NotDetected); Staph lugdunensis Not Reported Not Detected (NotDetected); Staph spp. Not Reported DETECTED (NotDetected); Staphaureus Not Reported Not Detected (NotDetected); Staphepi Not Reported Not Detected (NotDetected); Stenmaltophilia Not Reported Not Detected (NotDetected); Strep agal(GrpB) Not Reported Not Detected (NotDetected); Strep pneum Not Reported Not Detected (NotDetected); Strep pyog (GrpA) Not Reported Not Detected (NotDetected); Strep spp Not Reported Not Detected (NotDetected)
[2023-09-09 11:27] LABS: C auris Not Reported Not Detected (NotDetected); Calbicans Not Reported Not Detected (NotDetected); Candida glabrata Not Reported Not Detected (NotDetected); Candida krusei Not Reported Not Detected (NotDetected); Cneoformans/gatti Not Reported Not Detected (NotDetected); Cparapsilosis Not Reported Not Detected (NotDetected)
[2023-09-09 11:34] LABS: Staphylococcus spp. DETECTED (NotDetected)
[2023-09-09] MEDS: MAGNESIUM SULFATE / D5W 1 GM/100 ML BAG IV ONE (12:23)
[2023-09-09] MEDS: SODIUM CHLORIDE 0.9% 500 ML IV SCH (13:41)
[2023-09-09] MEDS: ADVANCED PROBIOTIC 625 MG CAPSULE PO SCH (13:42)
[2023-09-09] MEDS: cefTRIAXone SODIUM 2,000 MG in DEXTROSE 5 % MINI-B 50 ML IV SCH (15:29)
[2023-09-09] MEDS: SODIUM CHLORIDE 0.65% NA SOLN 45 ML (OCEAN) SCH (15:29)
[2023-09-10 05:18] LABS: Hematocrit (blood only) 38.3 % (42.0-52.0); Hemoglobin 12.3 g/dl (14.0-18.0); Mean Corpuscular Hemoglobin 29.1 pg (25.0-34.0); Mean Corpuscular Hgb Conc 32.1 g/dL (32.0-36.0); Mean Corpuscular Volume 90.8 fL (80.0-100.0); Platelet Count 134 K/uL (130-400); RDW Standard Deviation 42.9 fL (36.4-46.3); Red Blood Count 4.22 M/uL (4.70-6.10); White Blood Count 6.15 K/ul (4.8-10.8)
[2023-09-10 05:40] LABS: BUN Creatinine Ratio 19.4 (10-20); Calcium 8.4 mg/dl (8.6-10.3); Creatinine Clr Calc Pharmacy 83.1 ml/min; Est GFR (African American) 87.1 ml/min; Est GFR (Non-African American) 75.1 ml/min; Magnesium 1.8 mg/dl (1.7-2.4); Phosphorus 2.9 mg/dl (2.5-4.9); Potassium 3.6 mmol/L (3.5-5.1)
--- NOTE | 2023-09-10 05:41 | Hospitalist Progress Note ---
Date of Service September 10, 2023 Assessment & Plan (1) Sepsis: Plan: Uncertain if patient has an underlying bacterial infection. No UTI, no pneumonia. Febrile and tachycardic on arrival. Procalcitonin negative. Evidence of possible sinusitis on CT head, however, patient denies any pain in ears or sinuses today and no purulent discharge. He does have evidence of a viral infection which is likely responsible for his fever and symptoms. Empiric Rocephin has been started in the ER and will be continued pending clinical improvement and culture results. Blood cultx - one positive for coag negat. staph - poss. contaminant - will await final results. repeated blood cultx. Cont. abx as above for now (2) Fall from chair: Plan: Ambulatory with a cane at baseline. He reports not sleeping well overnight and fell asleep sliding out of his new recliner which is slippery. Denies chest pain or SOB and no evidence of acute ischemia on EKG with normal HS troponin. No stroke like symptoms and CT head is negative. Mildly elevated CK likely related to prolonged immobilization. Trend in am after IVF given in the ER. CK elevated c/w mild rhabdo - cont. with IVF. 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 This on top of chronic insomnia and poorly controlled chronic medical conditions are likely the result for his weakness and decline now. PT/OT to assess. Restart medications for these issues. Get him hooked back in with PCP and consider sleep evaluation as outpatient. Admitting provider discussed this plan with him and he verbalized understanding. (3) Coronavirus infection: Plan: cont supportive care efforts including nasal steroids. Not requiring oxygen and no evidence of pneumonia on CXR Cont. w/ guaifenesin, flutter valve, IS (4) DM type 2 (diabetes mellitus, type 2): Plan: Current Hgb A1c 13.9% Uncontrolled at baseline 2/2 noncompliance. Pt with evidence of glucosuria. Historically was taking Jardiance, metformin and glyburide. Consider restarting at discharge. While inpatient cont with basal bolus insulin. Historically has peripheral neuropathy in his feet and needs podiatric consultation as outpatient. Defer to PCP. (5) HTN (hypertension): Plan: chronic, uncontrolled 2/2 noncompliance with medication. Pt also reports depending on frozen dinners which are high in sodium. Restart lisinopril in am. Repeat BMP in two weeks time for monitoring. (6) HLD (hyperlipidemia): Plan: History of being on simvastatin, but no longer taking. AM Lipid panel obtained - LDL 48, TG 73 DVT proph: Lovenox Full Code confirmed with him on admission Dispo-to telemetry Admission and Anticipated Discharge Date Admission Date: September 08, 2023 Subjective Pt seen in follow up after fall, fever, found positive for coronavirus Pt also not taking his DM meds, A1c elevated at 13.9% Currently laying in bed in NAD, reports feeling somewhat better but still weak no current fever, chills, chest pain, shortness of breath, reports some rhinorrhea and some cough no abd. pain, n/v Review of Systems Review of Systems: All systems reviewed & are unremarkable except as noted in Subjective Physical Exam Physical Exam: CONSTITUTIONAL: WNWD in NAD EYES: pupils are round and equal bilaterally, normal conjunctivae, no scleral icterus ENT: external ear and nose normal, oropharynx clear NECK: supple RESPIRATORY: normal respiratory effort , minimal rhonchi, no wheezing CARDIOVASCULAR: regular rate and rhythm, S1 and 2 heard without murmurs, gallops or rubs, no JVD, no peripheral edema, CHEST: inspection of chest normal GASTROINTESTINAL: soft, nontender, ND, no guarding MUSCULOSKELETAL: head is normocephalic and atraumatic, moves extremities SKIN: warm and dry, erythema along anterior lower extremities and flakiness of skin with poor care of feet noted, poor nail care, no clear wounds present on feet. NEUROLOGIC: answers appropriately, no facial asymmetry, speech fluent, moves extremities Results & Data Results & Data Vital Signs (Past 12 Hours) Vital Signs Temp Pulse Pulse Resp BP Pulse Ox Pulse Ox 09/10/23 03:43 36.3 C L 69 18 138/41 L 95 09/09/23 23:05 36.5 C 65 16 130/69 97 09/09/23 22:25 97 09/09/23 22:20 09/09/23 21:50 62 09/09/23 19:34 36.7 C 70 18 123/68 97 O2 Del Method O2 Del Method 09/10/23 03:43 Room Air 09/09/23 23:05 Room Air 09/09/23 22:25 Room Air 09/09/23 22:20 Room Air 09/09/23 21:50 09/09/23 19:34 Room Air Laboratory Results 09/10/23 09/10/23 09/09/23 Range/Units 07:36 04:10 20:11 WBC 6.15 (4.8-10.8) K/ul RBC 4.22 L (4.70-6.10) M/uL Hgb 12.3 L (14.0-18.0) g/dl Hct 38.3 L (42.0-52.0) % MCV 90.8 (80.0-100.0) fL MCH 29.1 (25.0-34.0) pg MCHC 32.1 (32.0-36.0) g/dL RDW Std Deviation 42.9 (36.4-46.3) fL RDW Coeff of Duyen 13.0 (11.5-14.5) % Plt Count 134 (130-400) K/uL MPV 11.0 (9.4-12.4) fL Sodium 141 (136-145) mmol/L Potassium 3.6 (3.5-5.1) mmol/L Chloride 108 H (98-107) mmol/L Carbon Dioxide 27 (21-32) mmol/L Anion Gap 6 (3-11) BUN 19 (6-23) mg/dl Creatinine 0.98 (0.6-1.4) mg/dl Est Cr Clr Drug Dosing 83.1 ml/min Est GFR ( Amer) 87.1 ml/min Est GFR (Non-Af Amer) 75.1 ml/min BUN/Creatinine Ratio 19.4 (10-20) Glucose 90 (70-99(Fasting)) mg/dl POC Glucose 82 110 H (70-99) mg/dl Calcium 8.4 L (8.6-10.3) mg/dl Phosphorus 2.9 (2.5-4.9) mg/dl Magnesium 1.8 (1.7-2.4) mg/dl Staphylococcus sp PCR (NotDetected) Bld Cult ID Panel PCR (NotDetected) 09/09/23 09/09/23 09/08/23 Range/Units 17:17 12:32 15:23 WBC (4.8-10.8) K/ul RBC (4.70-6.10) M/uL Hgb (14.0-18.0) g/dl Hct (42.0-52.0) % MCV (80.0-100.0) fL MCH (25.0-34.0) pg MCHC (32.0-36.0) g/dL RDW Std Deviation (36.4-46.3) fL RDW Coeff of [place]uy[place] (11.5-14.5) % Plt Count (130-400) K/uL MPV (9.4-12.4) fL Sodium (136-145) mmol/L Potassium (3.5-5.1) mmol/L Chloride (98-107) mmol/L Carbon Dioxide (21-32) mmol/L Anion Gap (3-11) BUN (6-23) mg/dl Creatinine (0.6-1.4) mg/dl Est Cr Clr Drug Dosing ml/min Est GFR ( Amer) ml/min Est GFR (Non-Af Amer) ml/min BUN/Creatinine Ratio (10-20) Glucose (70-99(Fasting)) mg/dl POC Glucose 83 82 (70-99) mg/dl Calcium (8.6-10.3) mg/dl Phosphorus (2.5-4.9) mg/dl Magnesium (1.7-2.4) mg/dl Staphylococcus sp PCR DETECTED A (NotDetected) Bld Cult ID Panel PCR See PCR Comment (NotDetected) Medications Administered Current Inpatient Medications Acetaminophen (Acetaminophen 325 Mg Tab) 650 mg PO Q4H PRN PRN Reason: Pain or Fever Stop: 10/08/23 22:24 Dextrose (Dextrose 50% 50 Ml Syringe) 25 - 50 ml IV UD PRN; Protocol PRN Reason: Hypoglycemia Protocol Stop: 10/08/23 21:13 Enoxaparin Sodium (Enoxaparin Inj 40 Mg/0.4 Ml Syr) 40 mg SQ HS [facility] Stop: 10/08/23 22:24 Last Admin: 09/09/23 21:18 Dose: 40 mg Fluticasone Propionate (Fluticasone Propionate Na Spr 16 Gm Btl) 2 sprays NA HS [facility] Stop: 10/08/23 21:14 Last Admin: 09/09/23 21:18 Dose: 2 sprays Glucagon (Glucagon For Inj 1 Mg Vial) 1 mg SQ UD PRN; Protocol PRN Reason: Hypoglycemia Protocol Stop: 10/08/23 21:13 Glucose (Glucose 10 Tab/Tube) 4 - 8 tab PO UD PRN; Protocol PRN Reason: Hypoglycemia Treatment Stop: 10/08/23 21:13 Glucose (Glucose 40% Gel 15 Gm Tube) 15 - 30 gm PO UD PRN; Protocol PRN Reason: Hypoglycemia Protocol Stop: 10/08/23 21:13 Guaifenesin (Guaifenesin 600 Mg Tabcr) 600 mg PO Q12 [facility]O Stop: 10/09/23 09:04 Last Admin: 09/09/23 21:19 Dose: 600 mg Ceftriaxone Sodium 2,000 mg/ (Dextrose) 50 mls @ 100 mls/hr IV Q24H FREDO; Protocol Stop: 09/11/23 15:59 Last Infusion: 09/09/23 16:04 Dose: Infused Sodium Chloride (Nss) 500 mls @ 80 mls/hr IV .[id number] [facility] Stop: 10/09/23 12:29 Last Admin: 09/10/23 03:51 Dose: 80 mls/hr Insulin Aspart (Insulin Aspart Per Unit Charge) 0 units SC ACHS [facility]EDO Stop: 10/08/23 21:14 Last Admin: 09/09/23 21:19 Dose: Not Given Insulin Glargine (Lantus Per Unit Charge) 20 units SQ BID [facility]EDO Stop: 10/08/23 21:14 Last Admin: 09/09/23 21:19 Dose: Not Given Lactobacillus Acidophilus (Advanced Probiotic 625 Mg Capsule) 1,250 mg PO DAILY [facility]EDO Stop: 10/09/23 12:44 Last Admin: 09/09/23 13:42 Dose: 1,250 mg Lisinopril (Lisinopril 20 Mg Tab) 20 mg PO QAM [facility] Stop: 10/09/23 08:59 Last Admin: 09/09/23 08:35 Dose: 20 mg Miscellaneous (Carbohydrates For Hypoglycemia ) 15 - 30 gm PO UD PRN PRN Reason: Hypoglycemia Protocol Stop: 10/08/23 21:13 Sodium Chloride (Sodium Chloride 0.65% Na Soln 45 Ml ([place])) 1 sprays NA TID FREDO Stop: 10/09/23 13:59 Last Admin: 09/09/23 21:18 Dose: 1 sprays (2) Fall from chair Encounter type: initial encounter Qualified Code(s): W07.XXXA - Fall from chair, initial encounter
[2023-09-10] MEDS: MAGNESIUM SULFATE / D5W 1 GM/100 ML BAG IV ONE (11:07)
[2023-09-10] MEDS: POTASSIUM CHLORIDE CRTAB 20 MEQ TABCR PO STA (11:07)
[2023-09-10] MEDS ORDERED: COUGH DROP (SUGAR FREE) LOZ 24 LOZ/1 BOX BUCCAL PRN (13:31)
--- NOTE | 2023-09-11 05:42 | Electrocardiogram Report ---
Test Reason : Blood Pressure : / mmHG Vent. Rate : 117 BPM Atrial Rate : 117 BPM P-R Int : 244 ms QRS Dur : 078 ms QT Int : 300 ms P-R-T Axes : 067 -41 061 degrees QTc Int : 418 ms Sinus tachycardia with 1st degree A-V block Left axis deviation Minimal voltage criteria for LVH, may be normal variant ( R in aVL ) Anterior infarct , age undetermined Nonspecific T wave abnormality Abnormal ECG No previous ECGs available Confirmed by Jaron Bergman ([id number]) on 09/11/2023 5:42:23 AM Referred By: REFERRED SELF Confirmed By:Jaron Bergman
[2023-09-11 06:33] LABS: Hematocrit (blood only) 36.6 % (42.0-52.0); Mean Corpuscular Hemoglobin 29.3 pg (25.0-34.0); Mean Corpuscular Hgb Conc 32.8 g/dL (32.0-36.0); Mean Corpuscular Volume 89.3 fL (80.0-100.0); Mean Platelet Volume 10.8 fL (9.4-12.4); Platelet Count 142 K/uL (130-400); RDW Coefficient of Variation 12.6 % (11.5-14.5); RDW Standard Deviation 41.2 fL (36.4-46.3); White Blood Count 6.31 K/ul (4.8-10.8)
[2023-09-11 06:37] LABS: BUN Creatinine Ratio 16.8 (10-20); Calcium 8.2 mg/dl (8.6-10.3); Creatinine Clr Calc Pharmacy 81.3 ml/min; Est GFR (African American) 83.9 ml/min; Est GFR (Non-African American) 72.4 ml/min; Magnesium 1.9 mg/dl (1.7-2.4); Phosphorus 2.9 mg/dl (2.5-4.9)
--- NOTE | 2023-09-11 08:24 | Hospitalist Progress Note ---
Date of Service September 11, 2023 Assessment & Plan (1) Sepsis: Plan: Uncertain if patient has an underlying bacterial infection. No UTI, no pneumonia. Febrile and tachycardic on arrival. Procalcitonin negative. Evidence of possible sinusitis on CT head, however, patient denies any pain in ears or sinuses and no purulent discharge. He does have evidence of a viral infection which is likely responsible for his fever and symptoms. Empiric Rocephin started in the ER - finished empiric 48 hrs Blood cultx - one positive for coag negat. staph - likely contaminant - repeated blood cultx - negat so far (2) Fall from chair: Plan: Ambulatory with a cane at baseline. He reports not sleeping well overnight and fell asleep sliding out of his new recliner which is slippery. Denies chest pain or SOB and no evidence of acute ischemia on EKG with normal HS troponin. No stroke like symptoms and CT head is negative. Mildly elevated CK likely related to prolonged immobilization. Trend in am after IVF given in the ER -> CK elevated c/w mild rhabdo - cont. with IVF. 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 This on top of chronic insomnia and poorly controlled chronic medical conditions are likely the result for his weakness and decline now. PT/OT to assess. Restart medications for these issues. Get him hooked back in with PCP and consider sleep evaluation as outpatient. Admitting provider discussed this plan with him and he verbalized understanding. (3) Coronavirus infection: Plan: cont supportive care efforts including nasal steroids. Not requiring oxygen and no evidence of pneumonia on CXR Cont. w/ guaifenesin, flutter valve, IS, nasal spray (4) DM type 2 (diabetes mellitus, type 2): Plan: Current Hgb A1c 13.9% Uncontrolled at baseline 2/2 noncompliance. Pt with evidence of glucosuria. Historically was taking Jardiance, metformin and glyburide. Consider restarting at discharge. While inpatient cont with basal bolus insulin. Historically has peripheral neuropathy in his feet and needs podiatric consultation as outpatient. Defer to PCP. Discussed w/ DM educator - recs: RECOMMENDATIONS AT DISCHARGE: 1.) Restart prior diabetes medications but simplify regimen to help with adherence. * Metformin ER 850mg once daily in AM x 1 week --> Metformin ER 850mg x 2 in AM daily * Jardiance 10mg AM daily * Glimepiride 2mg AM daily - may consider holding off d/t risk of hypoglycemia 2.) Lifestyle changes- balanced meals; mindfulness. 3.) SMBG 1x/day, change time checking from day to day. PRESCRIPTIONS NEEDED AT DISCHARGE: 1.) Metformin ER 2.) Jardiance 3.) Glimepiride - may consider holding off d/t risk of hypoglycemia 4.) OneTouch Ultra2 Meter 5.) OneTouch Ultra Test Strips- to check 2x/day 6.) OneTouch Delica Lancets 33 gauge- to check 2x/day (5) HTN (hypertension): Plan: chronic, uncontrolled 2/2 noncompliance with medication. Pt also reports depending on frozen dinners which are high in sodium. Restart lisinopril in am. Repeat BMP in two weeks time for monitoring. (6) HLD (hyperlipidemia): Plan: History of being on simvastatin, but no longer taking. AM Lipid panel obtained - LDL 48, TG 73 DVT proph: Lovenox Full Code confirmed with him on admission Dispo-to telemetry Admission and Anticipated Discharge Date Admission Date: September 08, 2023 Subjective Pt seen in follow up after fall, fever, found positive for coronavirus Pt also not taking his DM meds, A1c elevated at 13.9% Currently laying in bed in NAD, reports feeling somewhat better but still weak - > seen ambulating to bathroom with a cane and aid. Pt reports feeling well when ambulating to the bathroom but has some difficulty standing up from bed no current fever, chills, chest pain, shortness of breath, reports some rhinorrhea and some cough- nonproductive no abd. pain, n/v Review of Systems Review of Systems: All systems reviewed & are unremarkable except as noted in Subjective Physical Exam Physical Exam: CONSTITUTIONAL: WNWD in NAD EYES: pupils are round and equal bilaterally, normal conjunctivae, no scleral icterus ENT: external ear and nose normal, oropharynx clear NECK: supple RESPIRATORY: normal respiratory effort , minimal rhonchi, no wheezing CARDIOVASCULAR: regular rate and rhythm, S1 and 2 heard without murmurs, gallops or rubs, no JVD, no peripheral edema, CHEST: inspection of chest normal GASTROINTESTINAL: soft, nontender, ND, no guarding MUSCULOSKELETAL: head is normocephalic and atraumatic, moves extremities SKIN: warm and dry, erythema along anterior lower extremities and flakiness of skin with poor care of feet noted, poor nail care, no clear wounds present on feet. NEUROLOGIC: answers appropriately, no facial asymmetry, speech fluent, moves extremities Results & Data Results & Data Vital Signs (Past 12 Hours) Vital Signs Temp Pulse Pulse Pulse Resp BP Pulse Ox 09/11/23 07:43 09/11/23 07:14 36.4 C L 75 18 133/77 95 09/11/23 03:43 37 C 84 20 164/83 H 94 09/10/23 23:07 36.6 C 80 18 166/81 H 98 09/10/23 22:00 62 09/10/23 21:30 O2 Del Method 09/11/23 07:43 Room Air 09/11/23 07:14 Room Air 09/11/23 03:43 Room Air 09/10/23 23:07 Room Air 09/10/23 22:00 09/10/23 21:30 Room Air Laboratory Results 09/11/23 09/11/23 09/11/23 Range/Units 08:10 04:47 02:46 WBC 6.31 (4.8-10.8) K/ul RBC 4.10 L (4.70-6.10) M/uL Hgb 12.0 L (14.0-18.0) g/dl Hct 36.6 L (42.0-52.0) % MCV 89.3 (80.0-100.0) fL MCH 29.3 (25.0-34.0) pg MCHC 32.8 (32.0-36.0) g/dL RDW Std Deviation 41.2 (36.4-46.3) fL RDW Coeff of Duyen 12.6 (11.5-14.5) % Plt Count 142 (130-400) K/uL MPV 10.8 (9.4-12.4) fL Sodium 139 (136-145) mmol/L Potassium 4.0 (3.5-5.1) mmol/L Chloride 107 (98-107) mmol/L Carbon Dioxide 28 (21-32) mmol/L Anion Gap 4 (3-11) BUN 17 (6-23) mg/dl Creatinine 1.01 (0.6-1.4) mg/dl Est Cr Clr Drug Dosing 81.3 ml/min Est GFR ( Amer) 83.9 ml/min Est GFR (Non-Af Amer) 72.4 ml/min BUN/Creatinine Ratio 16.8 (10-20) Glucose 99 (70-99(Fasting)) mg/dl POC Glucose 72 73 (70-99) mg/dl Calcium 8.2 L (8.6-10.3) mg/dl Phosphorus 2.9 (2.5-4.9) mg/dl Magnesium 1.9 (1.7-2.4) mg/dl Total Creatine Kinase 825 H (30-223) U/L Hepatitis C Ab (EIA) (NON-REACTIVE) 09/10/23 09/10/23 09/10/23 Range/Units 20:29 17:17 12:27 WBC (4.8-10.8) K/ul RBC (4.70-6.10) M/uL Hgb (14.0-18.0) g/dl Hct (42.0-52.0) % MCV (80.0-100.0) fL MCH (25.0-34.0) pg MCHC (32.0-36.0) g/dL RDW Std Deviation (36.4-46.3) fL RDW Coeff of Duyen (11.5-14.5) % Plt Count (130-400) K/uL MPV (9.4-12.4) fL Sodium (136-145) mmol/L Potassium (3.5-5.1) mmol/L Chloride (98-107) mmol/L Carbon Dioxide (21-32) mmol/L Anion Gap (3-11) BUN (6-23) mg/dl Creatinine (0.6-1.4) mg/dl Est Cr Clr Drug Dosing ml/min Est GFR ( Amer) ml/min Est GFR (Non-Af Amer) ml/min BUN/Creatinine Ratio (10-20) Glucose (70-99(Fasting)) mg/dl POC Glucose 76 160 H 89 (70-99) mg/dl Calcium (8.6-10.3) mg/dl Phosphorus (2.5-4.9) mg/dl Magnesium (1.7-2.4) mg/dl Total Creatine Kinase (30-223) U/L Hepatitis C Ab (EIA) (NON-REACTIVE) 09/09/23 Range/Units 04:28 WBC (4.8-10.8) K/ul RBC (4.70-6.10) M/uL Hgb (14.0-18.0) g/dl Hct (42.0-52.0) % MCV (80.0-100.0) fL MCH (25.0-34.0) pg MCHC (32.0-36.0) g/dL RDW Std Deviation (36.4-46.3) fL RDW Coeff of Duyen (11.5-14.5) % Plt Count (130-400) K/uL MPV (9.4-12.4) fL Sodium (136-145) mmol/L Potassium (3.5-5.1) mmol/L Chloride (98-107) mmol/L Carbon Dioxide (21-32) mmol/L Anion Gap (3-11) BUN (6-23) mg/dl Creatinine (0.6-1.4) mg/dl Est Cr Clr Drug Dosing ml/min Est GFR ( Amer) ml/min Est GFR (Non-Af Amer) ml/min BUN/Creatinine Ratio (10-20) Glucose (70-99(Fasting)) mg/dl POC Glucose (70-99) mg/dl Calcium (8.6-10.3) mg/dl Phosphorus (2.5-4.9) mg/dl Magnesium (1.7-2.4) mg/dl Total Creatine Kinase (30-223) U/L Hepatitis C Ab (EIA) NON-REACTIVE (NON-REACTIVE) Medications Administered Current Inpatient Medications Acetaminophen (Acetaminophen 325 Mg Tab) 650 mg PO Q4H PRN PRN Reason: Pain or Fever Stop: 10/08/23 22:24 Dextrose (Dextrose 50% 50 Ml Syringe) 25 - 50 ml IV UD PRN; Protocol PRN Reason: Hypoglycemia Protocol Stop: 10/08/23 21:13 Enoxaparin Sodium (Enoxaparin Inj 40 Mg/0.4 Ml Syr) 40 mg SQ HS FREDO Stop: 10/08/23 22:24 Last Admin: 09/10/23 19:34 Dose: 40 mg Fluticasone Propionate (Fluticasone Propionate Na Spr 16 Gm Btl) 2 sprays NA HS FREDO Stop: 10/08/23 21:14 Last Admin: 09/10/23 19:35 Dose: 2 sprays Glucagon (Glucagon For Inj 1 Mg Vial) 1 mg SQ UD PRN; Protocol PRN Reason: Hypoglycemia Protocol Stop: 10/08/23 21:13 Glucose (Glucose 10 Tab/Tube) 4 - 8 tab PO UD PRN; Protocol PRN Reason: Hypoglycemia Treatment Stop: 10/08/23 21:13 Glucose (Glucose 40% Gel 15 Gm Tube) 15 - 30 gm PO UD PRN; Protocol PRN Reason: Hypoglycemia Protocol Stop: 10/08/23 21:13 Guaifenesin (Guaifenesin 600 Mg Tabcr) 600 mg PO Q12 FREDO Stop: 10/09/23 09:04 Last Admin: 09/10/23 19:34 Dose: 600 mg Ceftriaxone Sodium 2,000 mg/ (Dextrose) 50 mls @ 100 mls/hr IV Q24H [facility]; Protocol Stop: 09/11/23 15:59 Last Infusion: 09/10/23 17:17 Dose: Infused Sodium Chloride (Nss) 500 mls @ 80 mls/hr IV .Q6H15M [facility] Stop: 10/09/23 12:29 Last Admin: 09/11/23 07:53 Dose: 80 mls/hr Insulin Aspart (Insulin Aspart Per Unit Charge) 0 units SC ACHS [facility] Stop: 10/08/23 21:14 Last Admin: 09/10/23 20:55 Dose: Not Given Insulin Glargine (Lantus Per Unit Charge) 20 units SQ BID [facility] Stop: 10/08/23 21:14 Last Admin: 09/10/23 20:55 Dose: Not Given Lactobacillus Acidophilus (Advanced Probiotic 625 Mg Capsule) 1,250 mg PO DAILY [facility] Stop: 10/09/23 12:44 Last Admin: 09/10/23 07:40 Dose: 1,250 mg Lisinopril (Lisinopril 20 Mg Tab) 20 mg PO QAM [facility] Stop: 10/09/23 08:59 Last Admin: 09/10/23 07:40 Dose: 20 mg Menthol (Cough Drop (Sugar Free) Andreina 24 Andreina/1 Box) 1 andreina BUCCAL NOW PRN PRN Reason: Cough Stop: 10/10/23 13:30 Miscellaneous (Carbohydrates For Hypoglycemia ) 15 - 30 gm PO UD PRN PRN Reason: Hypoglycemia Protocol Stop: 10/08/23 21:13 Sodium Chloride (Sodium Chloride 0.65% Na Soln 45 Ml ([place])) 1 sprays NA TID FREDO Stop: 10/09/23 13:59 Last Admin: 09/10/23 19:35 Dose: 1 sprays (2) Fall from chair Encounter type: initial encounter Qualified Code(s): W07.XXXA - Fall from chair, initial encounter
[2023-09-11] MEDS ORDERED: PHARMACY GLYCEMIC MGMT CONSULT PRN (09:51)
--- NOTE | 2023-09-11 11:08 | Pharmacy Report ---
Pharmacy Glycemic Short Note 2 - Date of Service September 11, 2023 - Glycemic Short BSG Results (Last 24 hours): 09/10/23 09/10/23 09/10/23 12:27 17:17 20:29 Glucose POC Glucose 89 160 H 76 09/11/23 09/11/23 09/11/23 02:46 04:47 08:10 Glucose 99 POC Glucose 73 72 OUTPATIENT ANTIDIABETIC REGIMEN: * No meds due to non-compliance. Historically was on Jardiance, Metformin and Glyburide. HbA1c: 13.9% on 09/09/23 ASSESSMENT: * 73 y/o M admitted for weakness, fever, suspected sepsis. Blood cultures negative and currently only on empiric Rocephin. * He has Type 2 diabetes but was not taking any meds at home for this. Since admission on 09/07, he was started on basal + bolus insulin. * Basal insulin 20 units BID was started however due to hypoglycemia, the night time dose was being held. * Pharmacy consulted for glycemic management today. * Fasting BSG has been very well controlled- 82 mg/dl yesterday and 72 mg/dl (borderline hypoglycemia) today. Basal dose reduced by 40% starting tomorrow since he had already received his morning basal dose today prior to the consult. * BSGs yesterday were 09-90-491-76 mg/dl. Novolog parameters initiated two days ago was between a stress of 2 and 3. This is now loosened to stress between 1 and 2 to prevent hypoglycemia. * Will likely need to tighten Novolog parameters tomorrow with lower dose of basal insulin. PLAN FOR INPATIENT GLYCEMIC CONTROL: * Basal insulin * Lantus 12 units SQ QAM * Bolus insulin * NovoLog per scale ACHS or Q6hrs while NPO * Goal Range: Low 110 mg/dL - High 140 mg/dL * Correction Factor: 30 mg/dL/unit * Nutritional / Prandial insulin per carb ratio of 1 unit per 10 grams CHO consumed
[2023-09-12 07:19] LABS: Hematocrit (blood only) 35.9 % (42.0-52.0); Hemoglobin 11.8 g/dl (14.0-18.0); Mean Corpuscular Hgb Conc 32.9 g/dL (32.0-36.0); Mean Corpuscular Volume 88.2 fL (80.0-100.0); Mean Platelet Volume 10.6 fL (9.4-12.4); Platelet Count 147 K/uL (130-400); RDW Coefficient of Variation 12.7 % (11.5-14.5); RDW Standard Deviation 41.1 fL (36.4-46.3); Red Blood Count 4.07 M/uL (4.70-6.10); White Blood Count 4.82 K/ul (4.8-10.8)
[2023-09-12 07:40] LABS: BUN Creatinine Ratio 16.7 (10-20); Calcium 8.4 mg/dl (8.6-10.3); Creatinine Clr Calc Pharmacy 84.8 ml/min; Est GFR (African American) 89.3 ml/min; Potassium 3.9 mmol/L (3.5-5.1)
[2023-09-12] MEDS: LANTUS PER UNIT CHARGE SC SCH (09:32)
--- NOTE | 2023-09-12 09:33 | Hospitalist Progress Note ---
Date of Service September 12, 2023 Assessment & Plan (1) Sepsis: Plan: Uncertain if patient has an underlying bacterial infection. No UTI, no pneumonia. Febrile and tachycardic on arrival. Procalcitonin negative. Evidence of possible sinusitis on CT head, however, patient denies any pain in ears or sinuses and no purulent discharge. He does have evidence of a viral infection which is likely responsible for his fever and symptoms. Empiric Rocephin started in the ER - finished empiric 48 hrs Blood cultx - one positive for coag negat. staph - likely contaminant - repeated blood cultx - negat for 48 hrs (2) Fall from chair: Plan: Ambulatory with a cane at baseline. He reports not sleeping well overnight and fell asleep sliding out of his new recliner which is slippery. Denies chest pain or SOB and no evidence of acute ischemia on EKG with normal HS troponin. No stroke like symptoms and CT head is negative. Mildly elevated CK likely related to prolonged immobilization. Trend in am after IVF given in the ER -> CK elevated c/w mild rhabdo - cont. with IVF. 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 This on top of chronic insomnia and poorly controlled chronic medical conditions are likely the result for his weakness and decline now. PT/OT. Restart medications for these issues. Get him hooked back in with PCP and consider sleep evaluation as outpatient. Admitting provider discussed this plan with him and he verbalized understanding. (3) Coronavirus infection: Plan: cont supportive care efforts including nasal steroids. Not requiring oxygen and no evidence of pneumonia on CXR Cont. w/ guaifenesin, flutter valve, IS, nasal spray (4) DM type 2 (diabetes mellitus, type 2): Plan: Current Hgb A1c 13.9% Uncontrolled at baseline 2/2 noncompliance. Pt with evidence of glucosuria. Historically was taking Jardiance, metformin and glyburide. Consider restarting at discharge. While inpatient cont with basal bolus insulin. Historically has peripheral neuropathy in his feet and needs podiatric consultation as outpatient. Defer to PCP. Discussed w/ DM educator - recs: RECOMMENDATIONS AT DISCHARGE: 1.) Restart prior diabetes medications but simplify regimen to help with adherence. * Metformin ER 850mg once daily in AM x 1 week --> Metformin ER 850mg x 2 in AM daily * Jardiance 10mg AM daily * Glimepiride 2mg AM daily - may consider holding off d/t risk of hypoglycemia 2.) Lifestyle changes- balanced meals; mindfulness. 3.) SMBG 1x/day, change time checking from day to day. PRESCRIPTIONS NEEDED AT DISCHARGE: 1.) Metformin ER 2.) Jardiance 3.) Glimepiride - may consider holding off d/t risk of hypoglycemia 4.) OneTouch Ultra2 Meter 5.) OneTouch Ultra Test Strips- to check 2x/day 6.) OneTouch Delica Lancets 33 gauge- to check 2x/day (5) HTN (hypertension): Plan: chronic, uncontrolled 2/2 noncompliance with medication. Pt also reports depending on frozen dinners which are high in sodium. Restart lisinopril in am. Repeat BMP in two weeks time for monitoring. (6) HLD (hyperlipidemia): Plan: History of being on simvastatin, but no longer taking. AM Lipid panel obtained - LDL 48, TG 73 DVT proph: Lovenox Full Code confirmed with him on admission Dispo-to telemetry Admission and Anticipated Discharge Date Admission Date: September 08, 2023 Subjective Pt seen in follow up after fall, fever, found positive for coronavirus Pt also not taking his DM meds, A1c elevated at 13.9% Currently sitting up in bed in NAD no current fever, chills, chest pain, shortness of breath, reports some rhinorrhea and some cough- nonproductive no abd. pain, n/v Updated pt's sister over the phone this AM. Contacted CM to further clarify and DC needs Review of Systems Review of Systems: All systems reviewed & are unremarkable except as noted in Subjective Physical Exam Physical Exam: CONSTITUTIONAL: WNWD in NAD EYES: pupils are round and equal bilaterally, normal conjunctivae, no scleral icterus ENT: external ear and nose normal, oropharynx clear NECK: supple RESPIRATORY: normal respiratory effort , minimal rhonchi, no wheezing CARDIOVASCULAR: regular rate and rhythm, S1 and 2 heard without murmurs, gallops or rubs, no JVD, no peripheral edema, CHEST: inspection of chest normal GASTROINTESTINAL: soft, nontender, ND, no guarding MUSCULOSKELETAL: head is normocephalic and atraumatic, moves extremities SKIN: warm and dry, erythema along anterior lower extremities and flakiness of skin with poor care of feet noted, poor nail care, no clear wounds present on feet. NEUROLOGIC: answers appropriately, no facial asymmetry, speech fluent, moves extremities Results & Data Results & Data Vital Signs (Past 12 Hours) Vital Signs Temp Pulse Pulse Resp BP Pulse Ox O2 Del Method 09/12/23 07:26 36.8 C 64 18 137/75 95 Room Air 09/12/23 07:00 64 09/12/23 04:33 36.3 C L 73 18 163/77 H 95 Room Air 09/12/23 03:15 69 09/11/23 23:30 36.8 C 69 18 146/74 H 96 Room Air Laboratory Results 09/12/23 09/12/23 09/11/23 Range/Units 08:23 06:38 20:27 WBC 4.82 (4.8-10.8) K/ul RBC 4.07 L (4.70-6.10) M/uL Hgb 11.8 L (14.0-18.0) g/dl Hct 35.9 L (42.0-52.0) % MCV 88.2 (80.0-100.0) fL MCH 29.0 (25.0-34.0) pg MCHC 32.9 (32.0-36.0) g/dL RDW Std Deviation 41.1 (36.4-46.3) fL RDW Coeff of Duyen 12.7 (11.5-14.5) % Plt Count 147 (130-400) K/uL MPV 10.6 (9.4-12.4) fL Sodium 141 (136-145) mmol/L Potassium 3.9 (3.5-5.1) mmol/L Chloride 109 H (98-107) mmol/L Carbon Dioxide 28 (21-32) mmol/L Anion Gap 4 (3-11) BUN 16 (6-23) mg/dl Creatinine 0.96 (0.6-1.4) mg/dl Est Cr Clr Drug Dosing 84.8 ml/min Est GFR ( Amer) 89.3 ml/min Est GFR (Non-Af Amer) 77.0 ml/min BUN/Creatinine Ratio 16.7 (10-20) Glucose 97 (70-99(Fasting)) mg/dl POC Glucose 79 98 (70-99) mg/dl Calcium 8.4 L (8.6-10.3) mg/dl Total Creatine Kinase 633 H (30-223) U/L 09/11/23 09/11/23 Range/Units 17:03 12:30 WBC (4.8-10.8) K/ul RBC (4.70-6.10) M/uL Hgb (14.0-18.0) g/dl Hct (42.0-52.0) % MCV (80.0-100.0) fL MCH (25.0-34.0) pg MCHC (32.0-36.0) g/dL RDW Std Deviation (36.4-46.3) fL RDW Coeff of Duyen (11.5-14.5) % Plt Count (130-400) K/uL MPV (9.4-12.4) fL Sodium (136-145) mmol/L Potassium (3.5-5.1) mmol/L Chloride (98-107) mmol/L Carbon Dioxide (21-32) mmol/L Anion Gap (3-11) BUN (6-23) mg/dl Creatinine (0.6-1.4) mg/dl Est Cr Clr Drug Dosing ml/min Est GFR ( Amer) ml/min Est GFR (Non-Af Amer) ml/min BUN/Creatinine Ratio (10-20) Glucose (70-99(Fasting)) mg/dl POC Glucose 79 141 H (70-99) mg/dl Calcium (8.6-10.3) mg/dl Total Creatine Kinase (30-223) U/L Medications Administered Current Inpatient Medications Acetaminophen (Acetaminophen 325 Mg Tab) 650 mg PO Q4H PRN PRN Reason: Pain or Fever Stop: 10/08/23 22:24 Dextrose (Dextrose 50% 50 Ml Syringe) 25 - 50 ml IV UD PRN; Protocol PRN Reason: Hypoglycemia Protocol Stop: 10/08/23 21:13 Enoxaparin Sodium (Enoxaparin Inj 40 Mg/0.4 Ml Syr) 40 mg SQ HS FREDO Stop: 10/08/23 22:24 Last Admin: 09/11/23 20:10 Dose: 40 mg Fluticasone Propionate (Fluticasone Propionate Na Spr 16 Gm Btl) 2 sprays NA HS [facility] Stop: 10/08/23 21:14 Last Admin: 09/11/23 20:10 Dose: 2 sprays Glucagon (Glucagon For Inj 1 Mg Vial) 1 mg SQ UD PRN; Protocol PRN Reason: Hypoglycemia Protocol Stop: 10/08/23 21:13 Glucose (Glucose 10 Tab/Tube) 4 - 8 tab PO UD PRN; Protocol PRN Reason: Hypoglycemia Treatment Stop: 10/08/23 21:13 Glucose (Glucose 40% Gel 15 Gm Tube) 15 - 30 gm PO UD PRN; Protocol PRN Reason: Hypoglycemia Protocol Stop: 10/08/23 21:13 Guaifenesin (Guaifenesin 600 Mg Tabcr) 600 mg PO Q12 [facility] Stop: 10/09/23 09:04 Last Admin: 09/12/23 07:54 Dose: 600 mg Sodium Chloride (Nss) 500 mls @ 80 mls/hr IV .Q6H15M [facility] Stop: 10/09/23 12:29 Last Admin: 09/11/23 14:33 Dose: Not Given Insulin Aspart (Insulin Aspart Per Unit Charge) 0 units SC ACHS [facility] Stop: 10/08/23 21:14 Last Admin: 09/11/23 20:38 Dose: Not Given Insulin Glargine (Lantus Per Unit Charge) 12 units SC QAM [facility] Stop: 10/12/23 08:59 Lactobacillus Acidophilus (Advanced Probiotic 625 Mg Capsule) 1,250 mg PO DAILY [facility] Stop: 10/09/23 12:44 Last Admin: 09/12/23 07:55 Dose: 1,250 mg Lisinopril (Lisinopril 20 Mg Tab) 20 mg PO QAM [facility] Stop: 10/09/23 08:59 Last Admin: 09/12/23 07:55 Dose: 20 mg Menthol (Cough Drop (Sugar Free) Andreina 24 Andreina/1 Box) 1 andreina BUCCAL NOW PRN PRN Reason: Cough Stop: 10/10/23 13:30 Miscellaneous (Carbohydrates For Hypoglycemia ) 15 - 30 gm PO UD PRN PRN Reason: Hypoglycemia Protocol Stop: 10/08/23 21:13 Miscellaneous Information (Pharmacy Glycemic Mgmt Consult) 1 each N/A UD PRN; Protocol PRN Reason: Consult Stop: 10/11/23 09:50 Sodium Chloride (Sodium Chloride 0.65% Na Soln 45 Ml ([place])) 1 sprays NA TID FREDO Stop: 10/09/23 13:59 Last Admin: 09/11/23 20:10 Dose: 1 sprays (2) Fall from chair Encounter type: initial encounter Qualified Code(s): W07.XXXA - Fall from chair, initial encounter
--- NOTE | 2023-09-12 13:36 | Pharmacy Report ---
Pharmacy Glycemic Short Note 2 - Date of Service September 12, 2023 - Glycemic Short BSG Results (Last 24 hours): 09/11/23 09/11/23 09/12/23 17:03 20:27 06:38 Glucose 97 POC Glucose 79 98 09/12/23 09/12/23 08:23 12:01 Glucose POC Glucose 79 110 H OUTPATIENT ANTIDIABETIC REGIMEN: * No meds due to non-compliance. Historically was on Jardiance, Metformin and Glyburide. HbA1c: 13.9% on 09/09/23 ASSESSMENT: 09/11 * BSGs yesterday 39-726-93-98 mg/dL with 20 units of lantus, 11 units of bolus * Lantus reduced 40% today- monitor * Continued current novolog parameters 09/10 * 73 y/o M admitted for weakness, fever, suspected sepsis. Blood cultures negative and currently only on empiric Rocephin. * He has Type 2 diabetes but was not taking any meds at home for this. Since admission on 09/07, he was started on basal + bolus insulin. * Basal insulin 20 units BID was started however due to hypoglycemia, the night time dose was being held. * Pharmacy consulted for glycemic management today. * Fasting BSG has been very well controlled- 82 mg/dl yesterday and 72 mg/dl (borderline hypoglycemia) today. Basal dose reduced by 40% starting tomorrow s sergei he had already received his morning basal dose today prior to the consult. * BSGs yesterday were 82-48-435-76 mg/dl. Novolog parameters initiated two days ago was between a stress of 2 and 3. This is now loosened to stress between 1 and 2 to prevent hypoglycemia. * Will likely need to tighten Novolog parameters tomorrow with lower dose of basal insulin. PLAN FOR INPATIENT GLYCEMIC CONTROL: * Basal insulin * Lantus 12 units SQ QAM * Bolus insulin * NovoLog per scale ACHS or Q6hrs while NPO * Goal Range: Low 110 mg/dL - High 140 mg/dL * Correction Factor: 30 mg/dL/unit * Nutritional / Prandial insulin per carb ratio of 1 unit per 10 grams CHO consumed
[2023-09-12] MEDS: POLYETHYLENE (MIRALAX) 17 GM PACK PO PRN (20:34)
[2023-09-13 06:31] LABS: Hematocrit (blood only) 41.6 % (42.0-52.0); Hemoglobin 13.9 g/dl (14.0-18.0); Mean Corpuscular Hemoglobin 29.6 pg (25.0-34.0); Mean Corpuscular Hgb Conc 33.4 g/dL (32.0-36.0); Mean Corpuscular Volume 88.5 fL (80.0-100.0); Mean Platelet Volume 10.7 fL (9.4-12.4); Platelet Count 174 K/uL (130-400); RDW Coefficient of Variation 12.7 % (11.5-14.5); RDW Standard Deviation 41.7 fL (36.4-46.3); White Blood Count 6.08 K/ul (4.8-10.8)
[2023-09-13 06:55] LABS: BUN Creatinine Ratio 19.6 (10-20); Calcium 9.2 mg/dl (8.6-10.3); Creatinine Clr Calc Pharmacy 83.6 ml/min; Est GFR (African American) 88.1 ml/min; Est GFR (Non-African American) 76.1 ml/min; Phosphorus 3.5 mg/dl (2.5-4.9); Potassium 4.2 mmol/L (3.5-5.1)
--- NOTE | 2023-09-13 08:05 | Hospitalist Progress Note ---
Date of Service September 13, 2023 Assessment & Plan (1) Sepsis: Plan: Uncertain if patient has an underlying bacterial infection. No UTI, no pneumonia. Febrile and tachycardic on arrival. Procalcitonin negative. Evidence of possible sinusitis on CT head, however, patient denies any pain in ears or sinuses and no purulent discharge. He does have evidence of a viral infection which is likely responsible for his fever and symptoms. Empiric Rocephin started in the ER - finished empiric 48 hrs Blood cultx - one positive for coag negat. staph - likely contaminant - repeated blood cultx - negat for 48 hrs (2) Fall from chair: Plan: Ambulatory with a cane at baseline. He reports not sleeping well overnight and fell asleep sliding out of his new recliner which is slippery. Denies chest pain or SOB and no evidence of acute ischemia on EKG with normal HS troponin. No stroke like symptoms and CT head is negative. Mildly elevated CK likely related to prolonged immobilization. Trend in am after IVF given in the ER -> CK elevated c/w mild rhabdo - cont. with IVF. 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 This on top of chronic insomnia and poorly controlled chronic medical conditions are likely the result for his weakness and decline now. PT/OT. Restart medications for these issues. Get him hooked back in with PCP and consider sleep evaluation as outpatient. Admitting provider discussed this plan with him and he verbalized understanding. (3) Coronavirus infection: Plan: cont supportive care efforts including nasal steroids. Not requiring oxygen and no evidence of pneumonia on CXR Cont. w/ guaifenesin, flutter valve, IS, nasal spray (4) DM type 2 (diabetes mellitus, type 2): Plan: Current Hgb A1c 13.9% Uncontrolled at baseline 2/2 noncompliance. Pt with evidence of glucosuria. Historically was taking Jardiance, metformin and glyburide. Consider restarting at discharge. While inpatient cont with basal bolus insulin. Historically has peripheral neuropathy in his feet and needs podiatric consultation as outpatient. Defer to PCP. Discussed w/ DM educator - recs: RECOMMENDATIONS AT DISCHARGE: 1.) Restart prior diabetes medications but simplify regimen to help with adherence. * Metformin ER 850mg once daily in AM x 1 week --> Metformin ER 850mg x 2 in AM daily * Jardiance 10mg AM daily * Glimepiride 2mg AM daily - may consider holding off d/t risk of hypoglycemia 2.) Lifestyle changes- balanced meals; mindfulness. 3.) SMBG 1x/day, change time checking from day to day. PRESCRIPTIONS NEEDED AT DISCHARGE: 1.) Metformin ER 2.) Jardiance 3.) Glimepiride - may consider holding off d/t risk of hypoglycemia 4.) OneTouch Ultra2 Meter 5.) OneTouch Ultra Test Strips- to check 2x/day 6.) OneTouch Delica Lancets 33 gauge- to check 2x/day (5) HTN (hypertension): Plan: chronic, uncontrolled 2/2 noncompliance with medication. Pt also reports depending on frozen dinners which are high in sodium. Restarted lisinopril. Repeat BMP in two weeks time for monitoring. (6) HLD (hyperlipidemia): Plan: History of being on simvastatin, but no longer taking. AM Lipid panel obtained - LDL 48, TG 73 DVT proph: Lovenox Full Code confirmed with him on admission Dispo-to telemetry Admission and Anticipated Discharge Date Admission Date: September 08, 2023 Subjective Pt seen in follow up after fall, fever, found positive for coronavirus Pt also not taking his DM meds, A1c elevated at 13.9% Currently sitting up in bed in NAD no current fever, chills, chest pain, shortness of breath, reports some rhinorrhea and some cough- nonproductive no abd. pain, n/v Updated pt's sister at the bedside. Pt recommends rehab, discussed with CM. Review of Systems Review of Systems: All systems reviewed & are unremarkable except as noted in Subjective Physical Exam Physical Exam: CONSTITUTIONAL: WNWD in NAD EYES: pupils are round and equal bilaterally, normal conjunctivae, no scleral icterus ENT: external ear and nose normal, oropharynx clear NECK: supple RESPIRATORY: normal respiratory effort , minimal rhonchi, no wheezing CARDIOVASCULAR: regular rate and rhythm, S1 and 2 heard without murmurs, gallops or rubs, no JVD, no peripheral edema, CHEST: inspection of chest normal GASTROINTESTINAL: soft, nontender, ND, no guarding MUSCULOSKELETAL: head is normocephalic and atraumatic, moves extremities SKIN: warm and dry, erythema along anterior lower extremities and flakiness of skin with poor care of feet noted, poor nail care, no clear wounds present on feet. NEUROLOGIC: answers appropriately, no facial asymmetry, speech fluent, moves extremities Results & Data Results & Data Vital Signs (Past 12 Hours) Vital Signs Temp Pulse Pulse Resp BP Pulse Ox O2 Del Method 09/13/23 06:58 36.6 C 60 16 147/90 H 97 Room Air 09/13/23 02:58 36.6 C 61 18 138/78 95 Room Air 09/13/23 00:48 66 09/12/23 23:51 36.8 C 69 18 136/80 96 Room Air Laboratory Results 09/13/23 09/13/23 09/12/23 Range/Units 07:52 05:41 20:11 WBC 6.08 (4.8-10.8) K/ul RBC 4.70 (4.70-6.10) M/uL Hgb 13.9 L (14.0-18.0) g/dl Hct 41.6 L (42.0-52.0) % MCV 88.5 (80.0-100.0) fL MCH 29.6 (25.0-34.0) pg MCHC 33.4 (32.0-36.0) g/dL RDW Std Deviation 41.7 (36.4-46.3) fL RDW Coeff of Duyen 12.7 (11.5-14.5) % Plt Count 174 (130-400) K/uL MPV 10.7 (9.4-12.4) fL Sodium 142 (136-145) mmol/L Potassium 4.2 (3.5-5.1) mmol/L Chloride 106 (98-107) mmol/L Carbon Dioxide 31 (21-32) mmol/L Anion Gap 5 (3-11) BUN 19 (6-23) mg/dl Creatinine 0.97 (0.6-1.4) mg/dl Est Cr Clr Drug Dosing 83.6 ml/min Est GFR ( Amer) 88.1 ml/min Est GFR (Non-Af Amer) 76.1 ml/min BUN/Creatinine Ratio 19.6 (10-20) Glucose 92 (70-99(Fasting)) mg/dl POC Glucose 84 157 H (70-99) mg/dl Calcium 9.2 (8.6-10.3) mg/dl Phosphorus 3.5 (2.5-4.9) mg/dl Magnesium 2.0 (1.7-2.4) mg/dl Total Creatine Kinase (30-223) U/L 09/12/23 09/12/23 09/12/23 Range/Units 17:07 12:01 08:23 WBC (4.8-10.8) K/ul RBC (4.70-6.10) M/uL Hgb (14.0-18.0) g/dl Hct (42.0-52.0) % MCV (80.0-100.0) fL MCH (25.0-34.0) pg MCHC (32.0-36.0) g/dL RDW Std Deviation (36.4-46.3) fL RDW Coeff of Duyen (11.5-14.5) % Plt Count (130-400) K/uL MPV (9.4-12.4) fL Sodium (136-145) mmol/L Potassium (3.5-5.1) mmol/L Chloride (98-107) mmol/L Carbon Dioxide (21-32) mmol/L Anion Gap (3-11) BUN (6-23) mg/dl Creatinine (0.6-1.4) mg/dl Est Cr Clr Drug Dosing ml/min Est GFR ( Amer) ml/min Est GFR (Non-Af Amer) ml/min BUN/Creatinine Ratio (10-20) Glucose (70-99(Fasting)) mg/dl POC Glucose 109 H 110 H 79 (70-99) mg/dl Calcium (8.6-10.3) mg/dl Phosphorus (2.5-4.9) mg/dl Magnesium (1.7-2.4) mg/dl Total Creatine Kinase (30-223) U/L 09/12/23 Range/Units 06:38 WBC (4.8-10.8) K/ul RBC (4.70-6.10) M/uL Hgb (14.0-18.0) g/dl Hct (42.0-52.0) % MCV (80.0-100.0) fL MCH (25.0-34.0) pg MCHC (32.0-36.0) g/dL RDW Std Deviation (36.4-46.3) fL RDW Coeff of Duyen (11.5-14.5) % Plt Count (130-400) K/uL MPV (9.4-12.4) fL Sodium (136-145) mmol/L Potassium (3.5-5.1) mmol/L Chloride (98-107) mmol/L Carbon Dioxide (21-32) mmol/L Anion Gap (3-11) BUN (6-23) mg/dl Creatinine (0.6-1.4) mg/dl Est Cr Clr Drug Dosing ml/min Est GFR ( Amer) ml/min Est GFR (Non-Af Amer) ml/min BUN/Creatinine Ratio (10-20) Glucose (70-99(Fasting)) mg/dl POC Glucose (70-99) mg/dl Calcium (8.6-10.3) mg/dl Phosphorus (2.5-4.9) mg/dl Magnesium (1.7-2.4) mg/dl Total Creatine Kinase 633 H (30-223) U/L Medications Administered Current Inpatient Medications Acetaminophen (Acetaminophen 325 Mg Tab) 650 mg PO Q4H PRN PRN Reason: Pain or Fever Stop: 10/08/23 22:24 Dextrose (Dextrose 50% 50 Ml Syringe) 25 - 50 ml IV UD PRN; Protocol PRN Reason: Hypoglycemia Protocol Stop: 10/08/23 21:13 Enoxaparin Sodium (Enoxaparin Inj 40 Mg/0.4 Ml Syr) 40 mg SQ HS FREDO Stop: 10/08/23 22:24 Last Admin: 09/12/23 20:09 Dose: 40 mg Fluticasone Propionate (Fluticasone Propionate Na Spr 16 Gm Btl) 2 sprays NA HS FREDO Stop: 10/08/23 21:14 Last Admin: 09/12/23 20:08 Dose: 2 sprays Glucagon (Glucagon For Inj 1 Mg Vial) 1 mg SQ UD PRN; Protocol PRN Reason: Hypoglycemia Protocol Stop: 10/08/23 21:13 Glucose (Glucose 10 Tab/Tube) 4 - 8 tab PO UD PRN; Protocol PRN Reason: Hypoglycemia Treatment Stop: 10/08/23 21:13 Glucose (Glucose 40% Gel 15 Gm Tube) 15 - 30 gm PO UD PRN; Protocol PRN Reason: Hypoglycemia Protocol Stop: 10/08/23 21:13 Guaifenesin (Guaifenesin 600 Mg Tabcr) 600 mg PO Q12 [facility]DE[facility] Stop: 10/09/23 09:04 Last Admin: 09/12/23 20:09 Dose: 600 mg Sodium Chloride (Nss) 500 mls @ 80 mls/hr IV .Q6H15M [facility] Stop: 10/09/23 12:29 Last Admin: 09/11/23 14:33 Dose: Not Given Insulin Aspart (Insulin Aspart Per Unit Charge) 0 units SC ACHS [facility] Stop: 10/08/23 21:14 Last Admin: 09/12/23 20:34 Dose: 1 units Insulin Glargine (Lantus Per Unit Charge) 12 units SC QAM [facility] Stop: 10/12/23 08:59 Last Admin: 09/12/23 09:32 Dose: 12 units Lactobacillus Acidophilus (Advanced Probiotic 625 Mg Capsule) 1,250 mg PO DAILY [facility] Stop: 10/09/23 12:44 Last Admin: 09/12/23 07:55 Dose: 1,250 mg Lisinopril (Lisinopril 20 Mg Tab) 20 mg PO QAM [facility] Stop: 10/09/23 08:59 Last Admin: 09/12/23 07:55 Dose: 20 mg Menthol (Cough Drop (Sugar Free) Andreina 24 Andreina/1 Box) 1 andreina BUCCAL NOW PRN PRN Reason: Cough Stop: 10/10/23 13:30 Miscellaneous (Carbohydrates For Hypoglycemia ) 15 - 30 gm PO UD PRN PRN Reason: Hypoglycemia Protocol Stop: 10/08/23 21:13 Miscellaneous Information (Pharmacy Glycemic Mgmt Consult) 1 each N/A UD PRN; Protocol PRN Reason: Consult Stop: 10/11/23 09:50 Polyethylene Glycol (Polyethylene (Miralax) 17 Gm Pack) 17 gm PO DAILY PRN PRN Reason: Constipation Stop: 10/12/23 20:17 Last Admin: 09/12/23 20:34 Dose: 17 gm Sodium Chloride (Sodium Chloride 0.65% Na Soln 45 Ml (Kimble)) 1 sprays NA TID [facility] Stop: 10/09/23 13:59 Last Admin: 09/12/23 20:08 Dose: 1 sprays (2) Fall from chair Encounter type: initial encounter Qualified Code(s): W07.XXXA - Fall from chair, initial encounter
--- NOTE | 2023-09-14 08:30 | Pharmacy Report ---
Pharmacy Glycemic Short Note 2 - Date of Service September 14, 2023 - Glycemic Short BSG Results (Last 24 hours): 09/13/23 09/13/23 09/13/23 12:11 16:55 20:13 POC Glucose 178 H 94 121 H 09/14/23 08:18 POC Glucose 102 H OUTPATIENT ANTIDIABETIC REGIMEN: * No meds due to non-compliance. Historically was on Jardiance, Metformin and Glyburide. HbA1c: 13.9% on 09/09/23 ASSESSMENT: 09/13 * BSGs remain well-controlled, 72-440-65-121 mg/dL yesterday * Received 23 units of insulin (~50/50 basal/bolus split) * No change to diet today, or change in stressors * Do not anticipate any changes to glycemic regimen * Will consider tightening Novolog tomorrow AM (09/14) 09/11 * BSGs yesterday 84-153-34-98 mg/dL with 20 units of lantus, 11 units of bolus * Lantus reduced 40% today- monitor * Continued current novolog parameters 09/10 * 73 y/o M admitted for weakness, fever, suspected sepsis. Blood cultures negative and currently only on empiric Rocephin. * He has Type 2 diabetes but was not taking any meds at home for this. Since admission on 09/07, he was started on basal + bolus insulin. * Basal insulin 20 units BID was started however due to hypoglycemia, the night time dose was being held. * Pharmacy consulted for glycemic management today. * Fasting BSG has been very well controlled- 82 mg/dl yesterday and 72 mg/dl (borderline hypoglycemia) today. Basal dose reduced by 40% starting tomorrow since he had already received his morning basal dose today prior to the consult. * BSGs yesterday were 35-60-284-76 mg/dl. Novolog parameters initiated two days ago was between a stress of 2 and 3. This is now loosened to stress between 1 and 2 to prevent hypoglycemia. * Will likely need to tighten Novolog parameters tomorrow with lower dose of basal insulin. PLAN FOR INPATIENT GLYCEMIC CONTROL: * Basal insulin * Lantus 12 units SQ QAM * Bolus insulin * NovoLog per scale ACHS or Q6hrs while NPO * Goal Range: Low 110 mg/dL - High 140 mg/dL * Correction Factor: 30 mg/dL/unit * Nutritional / Prandial insulin per carb ratio of 1 unit per 10 grams CHO consumed
--- NOTE | 2023-09-14 14:25 | Hospitalist Progress Note ---
Date of Service September 14, 2023 Assessment & Plan (1) Sepsis: Plan: Uncertain if patient has an underlying bacterial infection. No UTI, no pneumonia. Febrile and tachycardic on arrival. Procalcitonin negative. Evidence of possible sinusitis on CT head, however, patient denies any pain in ears or sinuses and no purulent discharge. He does have evidence of a viral infection which is likely responsible for his fever and symptoms. Empiric Rocephin started in the ER - finished empiric 48 hrs Blood cultx - one positive for coag negat. staph - likely contaminant - repeated blood cultx - negative for 5 days (2) Fall from chair: Plan: Ambulatory with a cane at baseline. He reports not sleeping well overnight and fell asleep sliding out of his new recliner which is slippery. Denies chest pain or SOB and no evidence of acute ischemia on EKG with normal HS troponin. No stroke like symptoms and CT head is negative. Mildly elevated CK likely related to prolonged immobilization. Trend in am after IVF given in the ER -> CK elevated c/w mild rhabdo - cont. with IVF. 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 This on top of chronic insomnia and poorly controlled chronic medical conditions are likely the result for his weakness and decline now. PT/OT. Restart medications for these issues. Get him hooked back in with PCP and consider sleep evaluation as outpatient. Admitting provider discussed this plan with him and he verbalized understanding. (3) Coronavirus infection: Plan: cont supportive care efforts including nasal steroids. Not requiring oxygen and no evidence of pneumonia on CXR Cont. w/ guaifenesin, flutter valve, IS, nasal spray (4) DM type 2 (diabetes mellitus, type 2): Plan: Current Hgb A1c 13.9% Uncontrolled at baseline 2/2 noncompliance. Pt with evidence of glucosuria. Historically was taking Jardiance, metformin and glyburide. Consider restarting at discharge. While inpatient cont with basal bolus insulin. Historically has peripheral neuropathy in his feet and needs podiatric consultation as outpatient. Defer to PCP. Discussed w/ DM educator - recs: RECOMMENDATIONS AT DISCHARGE: 1.) Restart prior diabetes medications but simplify regimen to help with adherence. * Metformin ER 850mg once daily in AM x 1 week --> Metformin ER 850mg x 2 in AM daily * Jardiance 10mg AM daily * Glimepiride 2mg AM daily - may consider holding off d/t risk of hypoglycemia 2.) Lifestyle changes- balanced meals; mindfulness. 3.) SMBG 1x/day, change time checking from day to day. PRESCRIPTIONS NEEDED AT DISCHARGE: 1.) Metformin ER 2.) Jardiance 3.) Glimepiride - may consider holding off d/t risk of hypoglycemia 4.) OneTouch Ultra2 Meter 5.) OneTouch Ultra Test Strips- to check 2x/day 6.) OneTouch Delica Lancets 33 gauge- to check 2x/day (5) HTN (hypertension): Plan: chronic, uncontrolled 2/2 noncompliance with medication. Pt also reports depending on frozen dinners which are high in sodium. Restarted lisinopril. Repeat BMP in two weeks time for monitoring. (6) HLD (hyperlipidemia): Plan: History of being on simvastatin, but no longer taking. AM Lipid panel obtained - LDL 48, TG 73 DVT proph: Lovenox Full Code confirmed with him on admission Dispo-to telemetry Admission and Anticipated Discharge Date Admission Date: September 08, 2023 Subjective Pt seen in follow up after fall, fever, found positive for coronavirus Pt also not taking his DM meds, A1c elevated at 13.9% Currently sitting up in bed in NAD no current fever, chills, chest pain, shortness of breath, reports some rhinorrhea and some cough- nonproductive no abd. pain, n/v Updated pt's sister at the bedside. Pt recommends rehab, discussed with CM. nurse educator again at the bedside - discussing DM w/ the pt and his family at the bedside. Review of Systems Review of Systems: All systems reviewed & are unremarkable except as noted in Subjective Physical Exam Physical Exam: CONSTITUTIONAL: WNWD in NAD EYES: pupils are round and equal bilaterally, normal conjunctivae, no scleral icterus ENT: external ear and nose normal, oropharynx clear NECK: supple RESPIRATORY: normal respiratory effort , minimal rhonchi, no wheezing CARDIOVASCULAR: regular rate and rhythm, S1 and 2 heard without murmurs, gallops or rubs, no JVD, no peripheral edema, CHEST: inspection of chest normal GASTROINTESTINAL: soft, nontender, ND, no guarding MUSCULOSKELETAL: head is normocephalic and atraumatic, moves extremities SKIN: warm and dry, erythema along anterior lower extremities and flakiness of skin with poor care of feet noted, poor nail care, no clear wounds present on feet. NEUROLOGIC: answers appropriately, no facial asymmetry, speech fluent, moves extremities Results & Data Results & Data Vital Signs (Past 12 Hours) Vital Signs Temp Pulse Pulse Resp BP BP Pulse Ox 09/14/23 11:25 36.5 C 83 18 125/78 98 09/14/23 08:30 09/14/23 07:36 36.5 C 60 18 133/73 98 09/14/23 07:00 59 L 09/14/23 03:15 36.7 C 62 18 131/73 96 O2 Del Method 09/14/23 11:25 Room Air 09/14/23 08:30 Room Air 09/14/23 07:36 Room Air 09/14/23 07:00 09/14/23 03:15 Room Air Laboratory Results 09/14/23 09/14/23 09/13/23 Range/Units 11:51 08:18 20:13 POC Glucose 181 H 102 H 121 H (70-99) mg/dl 09/13/23 Range/Units 16:55 POC Glucose 94 (70-99) mg/dl Medications Administered Current Inpatient Medications Acetaminophen (Acetaminophen 325 Mg Tab) 650 mg PO Q4H PRN PRN Reason: Pain or Fever Stop: 10/08/23 22:24 Dextrose (Dextrose 50% 50 Ml Syringe) 25 - 50 ml IV UD PRN; Protocol PRN Reason: Hypoglycemia Protocol Stop: 10/08/23 21:13 Enoxaparin Sodium (Enoxaparin Inj 40 Mg/0.4 Ml Syr) 40 mg SQ HS FREDO Stop: 10/08/23 22:24 Last Admin: 09/13/23 20:15 Dose: 40 mg Fluticasone Propionate (Fluticasone Propionate Na Spr 16 Gm Btl) 2 sprays NA HS FREDO Stop: 10/08/23 21:14 Last Admin: 09/13/23 20:16 Dose: 2 sprays Glucagon (Glucagon For Inj 1 Mg Vial) 1 mg SQ UD PRN; Protocol PRN Reason: Hypoglycemia Protocol Stop: 10/08/23 21:13 Glucose (Glucose 10 Tab/Tube) 4 - 8 tab PO UD PRN; Protocol PRN Reason: Hypoglycemia Treatment Stop: 10/08/23 21:13 Glucose (Glucose 40% Gel 15 Gm Tube) 15 - 30 gm PO UD PRN; Protocol PRN Reason: Hypoglycemia Protocol Stop: 10/08/23 21:13 Guaifenesin (Guaifenesin 600 Mg Tabcr) 600 mg PO Q12 [facility] Stop: 10/09/23 09:04 Last Admin: 09/14/23 08:20 Dose: 600 mg Sodium Chloride (Nss) 500 mls @ 80 mls/hr IV .Q6H15M [facility] Stop: 10/09/23 12:29 Last Admin: 09/11/23 14:33 Dose: Not Given Insulin Aspart (Insulin Aspart Per Unit Charge) 0 units SC ACHS [facility] Stop: 10/08/23 21:14 Last Admin: 09/14/23 12:37 Dose: 9 units Insulin Glargine (Lantus Per Unit Charge) 12 units SC QAM [facility] Stop: 10/12/23 08:59 Last Admin: 09/14/23 09:09 Dose: 12 units Lactobacillus Acidophilus (Advanced Probiotic 625 Mg Capsule) 1,250 mg PO DAILY [facility] Stop: 10/09/23 12:44 Last Admin: 09/14/23 08:20 Dose: 1,250 mg Lisinopril (Lisinopril 20 Mg Tab) 20 mg PO QAM [facility] Stop: 10/09/23 08:59 Last Admin: 09/14/23 08:20 Dose: 20 mg Menthol (Cough Drop (Sugar Free) Andreina 24 Andreina/1 Box) 1 andreina BUCCAL NOW PRN PRN Reason: Cough Stop: 10/10/23 13:30 Miscellaneous (Carbohydrates For Hypoglycemia ) 15 - 30 gm PO UD PRN PRN Reason: Hypoglycemia Protocol Stop: 10/08/23 21:13 Miscellaneous Information (Pharmacy Glycemic Mgmt Consult) 1 each N/A UD PRN; Protocol PRN Reason: Consult Stop: 10/11/23 09:50 Polyethylene Glycol (Polyethylene (Miralax) 17 Gm Pack) 17 gm PO DAILY PRN PRN Reason: Constipation Stop: 10/12/23 20:17 Last Admin: 09/12/23 20:34 Dose: 17 gm Sodium Chloride (Sodium Chloride 0.65% Na Soln 45 Ml (Gar[place])) 1 sprays NA TID FREDO Stop: 10/09/23 13:59 Last Admin: 09/14/23 08:21 Dose: 1 sprays (2) Fall from chair Encounter type: initial encounter Qualified Code(s): W07.XXXA - Fall from chair, initial encounter
[2023-09-14] MEDS: ACETAMINOPHEN 325 MG TAB PO PRN (19:15)
[2023-09-15] MEDS: LANTUS PER UNIT CHARGE SC SCH (08:37)
[2023-09-15] MEDS: INSULIN ASPART PER UNIT CHARGE SC SCH ×2 (08:38→12:46)
--- NOTE | 2023-09-15 08:39 | Hospitalist Progress Note ---
Date of Service September 15, 2023 Assessment & Plan (1) Sepsis: Plan: Uncertain if patient has an underlying bacterial infection. No UTI, no pneumonia. Febrile and tachycardic on arrival. Procalcitonin negative. Evidence of possible sinusitis on CT head, however, patient denies any pain in ears or sinuses and no purulent discharge. He does have evidence of a viral infection which is likely responsible for his fever and symptoms. Empiric Rocephin started in the ER - finished empiric 48 hrs Blood cultx - one positive for coag negat. staph - likely contaminant - repeated blood cultx - negative for 5 days (2) Fall from chair: Plan: Ambulatory with a cane at baseline. He reports not sleeping well overnight and fell asleep sliding out of his new recliner which is slippery. Denies chest pain or SOB and no evidence of acute ischemia on EKG with normal HS troponin. No stroke like symptoms and CT head is negative. Mildly elevated CK likely related to prolonged immobilization. Trend in am after IVF given in the ER -> CK elevated c/w mild rhabdo - cont. with IVF. 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 This on top of chronic insomnia and poorly controlled chronic medical conditions are likely the result for his weakness and decline now. PT/OT. Restart medications for these issues. Get him hooked back in with PCP and consider sleep evaluation as outpatient. Admitting provider discussed this plan with him and he verbalized understanding. (3) Coronavirus infection: Plan: cont supportive care efforts including nasal steroids. Not requiring oxygen and no evidence of pneumonia on CXR Cont. w/ guaifenesin, flutter valve, IS, nasal spray (4) DM type 2 (diabetes mellitus, type 2): Plan: Current Hgb A1c 13.9% Uncontrolled at baseline 2/2 noncompliance. Pt with evidence of glucosuria. Historically was taking Jardiance, metformin and glyburide. Consider restarting at discharge. While inpatient cont with basal bolus insulin. Historically has peripheral neuropathy in his feet and needs podiatric consultation as outpatient. Defer to PCP. Discussed w/ DM educator - recs: RECOMMENDATIONS AT DISCHARGE: 1.) Restart prior diabetes medications but simplify regimen to help with adherence. * Metformin ER 850mg once daily in AM x 1 week --> Metformin ER 850mg x 2 in AM daily * Jardiance 10mg AM daily * Glimepiride 2mg AM daily - may consider holding off d/t risk of hypoglycemia 2.) Lifestyle changes- balanced meals; mindfulness. 3.) SMBG 1x/day, change time checking from day to day. PRESCRIPTIONS NEEDED AT DISCHARGE: 1.) Metformin ER 2.) Jardiance 3.) Glimepiride - may consider holding off d/t risk of hypoglycemia 4.) OneTouch Ultra2 Meter 5.) OneTouch Ultra Test Strips- to check 2x/day 6.) OneTouch Delica Lancets 33 gauge- to check 2x/day (5) HTN (hypertension): Plan: chronic, uncontrolled 2/2 noncompliance with medication. Pt also reports depending on frozen dinners which are high in sodium. Restarted lisinopril. Repeat BMP in two weeks time for monitoring. (6) HLD (hyperlipidemia): Plan: History of being on simvastatin, but no longer taking. AM Lipid panel obtained - LDL 48, TG 73 DVT proph: Lovenox Full Code confirmed with him on admission Dispo-to telemetry Admission and Anticipated Discharge Date Admission Date: September 08, 2023 Subjective Pt seen in follow up after fall, fever, found positive for coronavirus Pt also not taking his DM meds, A1c elevated at 13.9% Currently sitting up in bed in NAD no current fever, chills, chest pain, shortness of breath, reports some rhinorrhea and some cough- nonproductive no abd. pain, n/v Pt recommends rehab, CM involved. life skills educator consulted. Review of Systems Review of Systems: All systems reviewed & are unremarkable except as noted in Subjective Physical Exam Physical Exam: CONSTITUTIONAL: WNWD in NAD EYES: pupils are round and equal bilaterally, normal conjunctivae, no scleral icterus ENT: external ear and nose normal, oropharynx clear NECK: supple RESPIRATORY: normal respiratory effort , minimal rhonchi, no wheezing CARDIOVASCULAR: regular rate and rhythm, S1 and 2 heard without murmurs, gallops or rubs, no JVD, no peripheral edema, CHEST: inspection of chest normal GASTROINTESTINAL: soft, nontender, ND, no guarding MUSCULOSKELETAL: head is normocephalic and atraumatic, moves extremities SKIN: warm and dry, erythema along anterior lower extremities and flakiness of skin with poor care of feet noted, poor nail care, no clear wounds present on feet. NEUROLOGIC: answers appropriately, no facial asymmetry, speech fluent, moves extremities Results & Data Results & Data Vital Signs (Past 12 Hours) Vital Signs Temp Pulse Pulse Resp BP Pulse Ox O2 Del Method 09/15/23 07:31 Room Air 09/15/23 07:26 36.6 C 58 L 12 132/78 97 Room Air 09/15/23 05:50 50 L 09/15/23 03:24 36.5 C 60 18 143/73 H 97 Room Air 09/14/23 23:49 36.5 C 64 18 138/75 97 Room Air 09/14/23 21:59 57 L Medications Administered Current Inpatient Medications Acetaminophen (Acetaminophen 325 Mg Tab) 650 mg PO Q4H PRN PRN Reason: Pain or Fever Stop: 10/08/23 22:24 Last Admin: 09/14/23 19:15 Dose: 650 mg Dextrose (Dextrose 50% 50 Ml Syringe) 25 - 50 ml IV UD PRN; Protocol PRN Reason: Hypoglycemia Protocol Stop: 10/08/23 21:13 Enoxaparin Sodium (Enoxaparin Inj 40 Mg/0.4 Ml Syr) 40 mg SQ HS [facility] Stop: 10/08/23 22:24 Last Admin: 09/14/23 20:18 Dose: 40 mg Fluticasone Propionate (Fluticasone Propionate Na Spr 16 Gm Btl) 2 sprays NA HS [facility]O Stop: 10/08/23 21:14 Last Admin: 09/14/23 20:18 Dose: 2 sprays Glucagon (Glucagon For Inj 1 Mg Vial) 1 mg SQ UD PRN; Protocol PRN Reason: Hypoglycemia Protocol Stop: 10/08/23 21:13 Glucose (Glucose 10 Tab/Tube) 4 - 8 tab PO UD PRN; Protocol PRN Reason: Hypoglycemia Treatment Stop: 10/08/23 21:13 Glucose (Glucose 40% Gel 15 Gm Tube) 15 - 30 gm PO UD PRN; Protocol PRN Reason: Hypoglycemia Protocol Stop: 10/08/23 21:13 Guaifenesin (Guaifenesin 600 Mg Tabcr) 600 mg PO Q12 [facility] Stop: 10/09/23 09:04 Last Admin: 09/15/23 08:33 Dose: 600 mg Sodium Chloride (Nss) 500 mls @ 80 mls/hr IV .Q6H15M [facility] Stop: 10/09/23 12:29 Last Admin: 09/11/23 14:33 Dose: Not Given Insulin Aspart (Insulin Aspart Per Unit Charge) 0 units SC DAILY@0730 [facility] Stop: 10/08/23 21:14 Insulin Aspart (Insulin Aspart Per Unit Charge) 0 units SC 1130,1630,2100 [facility] Stop: 10/15/23 11:29 Insulin Glargine (Lantus Per Unit Charge) 10 units SC QAM [facility] Stop: 10/12/23 08:59 Lactobacillus Acidophilus (Advanced Probiotic 625 Mg Capsule) 1,250 mg PO DAILY [facility] Stop: 10/09/23 12:44 Last Admin: 09/15/23 08:34 Dose: 1,250 mg Lisinopril (Lisinopril 20 Mg Tab) 20 mg PO QAM [facility] Stop: 10/09/23 08:59 Last Admin: 09/15/23 08:34 Dose: 20 mg Menthol (Cough Drop (Sugar Free) Andreina 24 Andreina/1 Box) 1 andreina BUCCAL NOW PRN PRN Reason: Cough Stop: 10/10/23 13:30 Miscellaneous (Carbohydrates For Hypoglycemia ) 15 - 30 gm PO UD PRN PRN Reason: Hypoglycemia Protocol Stop: 10/08/23 21:13 Miscellaneous Information (Pharmacy Glycemic Mgmt Consult) 1 each N/A UD PRN; Protocol PRN Reason: Consult Stop: 10/11/23 09:50 Polyethylene Glycol (Polyethylene (Miralax) 17 Gm Pack) 17 gm PO DAILY PRN PRN Reason: Constipation Stop: 10/12/23 20:17 Last Admin: 09/12/23 20:34 Dose: 17 gm Sodium Chloride (Sodium Chloride 0.65% Na Soln 45 Ml ([place])) 1 sprays NA TID [facility] Stop: 10/09/23 13:59 Last Admin: 09/15/23 08:33 Dose: 1 sprays (2) Fall from chair Encounter type: initial encounter Qualified Code(s): W07.XXXA - Fall from chair, initial encounter
--- NOTE | 2023-09-16 08:41 | Pharmacy Report ---
Pharmacy Glycemic Short Note 2 - Date of Service September 16, 2023 - Glycemic Short BSG Results (Last 24 hours): 09/15/23 09/15/23 09/15/23 11:50 16:35 20:23 POC Glucose 127 H 98 88 09/16/23 08:22 POC Glucose 107 H OUTPATIENT ANTIDIABETIC REGIMEN: * No meds due to non-compliance. Historically was on Jardiance, Metformin and Glyburide. HbA1c: 13.9% on 09/09/23 ASSESSMENT: 09/16/23: * Blood sugars well-controlled yesterday, ranging 88-127 mg/dL * Received 26 units of insulin (10 units of basal and 16 units of prandial/correctional bolus) * Fasting blood sugar of 107 mg/dL this morning * Tightened AM Novolog carb ratio yesterday morning * Do not anticipate any changes to glycemic regimen today 09/13 * BSGs remain well-controlled, 89-460-72-121 mg/dL yesterday * Received 23 units of insulin (~50/50 basal/bolus split) * No change to diet today, or change in stressors * Do not anticipate any changes to glycemic regimen * Will consider tightening Novolog tomorrow AM (09/14) 09/11 * BSGs yesterday 07-557-06-98 mg/dL with 20 units of lantus, 11 units of bolus * Lantus reduced 40% today- monitor * Continued current novolog parameters 09/10 * 73 y/o M admitted for weakness, fever, suspected sepsis. Blood cultures negative and currently only on empiric Rocephin. * He has Type 2 diabetes but was not taking any meds at home for this. Since admission on 09/07, he was started on basal + bolus insulin. * Basal insulin 20 units BID was started however due to hypoglycemia, the night time dose was being held. * Pharmacy consulted for glycemic management today. * Fasting BSG has been very well controlled- 82 mg/dl yesterday and 72 mg/dl (borderline hypoglycemia) today. Basal dose reduced by 40% starting tomorrow since he had already received his morning basal dose today prior to the consult. * BSGs yesterday were 31-93-431-76 mg/dl. Novolog parameters initiated two days ago was between a stress of 2 and 3. This is now loosened to stress between 1 and 2 to prevent hypoglycemia. * Will likely need to tighten Novolog parameters tomorrow with lower dose of basal insulin. PLAN FOR INPATIENT GLYCEMIC CONTROL: * Basal insulin * Lantus 10 units SQ QAM * Bolus insulin * NovoLog per scale ACHS or Q6hrs while NPO * Goal Range: Low 110 mg/dL - High 140 mg/dL * Correction Factor: 30 mg/dL/unit * Nutritional / Prandial insulin per carb ratio of 1 unit per 8 grams CHO consumed w/ breakfast, 1 unit per 10 grams CHO consumed w/ lunch, dinner, and at HS
--- NOTE | 2023-09-16 13:01 | Hospitalist Progress Note ---
Date of Service September 16, 2023 Assessment & Plan (1) Sepsis: Plan: Uncertain if patient has an underlying bacterial infection. No UTI, no pneumonia. Febrile and tachycardic on arrival. Procalcitonin negative. Evidence of possible sinusitis on CT head, however, patient denies any pain in ears or sinuses and no purulent discharge. He does have evidence of a viral infection which is likely responsible for his fever and symptoms. Empiric Rocephin started in the ER - finished empiric 48 hrs Blood cultx - one positive for coag negat. staph - likely contaminant - repeated blood cultx - negative for 5 days (2) Fall from chair: Plan: Ambulatory with a cane at baseline. He reports not sleeping well overnight and fell asleep sliding out of his new recliner which is slippery. Denies chest pain or SOB and no evidence of acute ischemia on EKG with normal HS troponin. No stroke like symptoms and CT head is negative. Mildly elevated CK likely related to prolonged immobilization. Trend in am after IVF given in the ER -> CK elevated c/w mild rhabdo - cont. with IVF. 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 This on top of chronic insomnia and poorly controlled chronic medical conditions are likely the result for his weakness and decline now. PT/OT. Restart medications for these issues. Get him hooked back in with PCP and consider sleep evaluation as outpatient. Admitting provider discussed this plan with him and he verbalized understanding. (3) Coronavirus infection: Plan: cont supportive care efforts including nasal steroids. Not requiring oxygen and no evidence of pneumonia on CXR Cont. w/ guaifenesin, flutter valve, IS, nasal spray (4) DM type 2 (diabetes mellitus, type 2): Plan: Current Hgb A1c 13.9% Uncontrolled at baseline 2/2 noncompliance. Pt with evidence of glucosuria. Historically was taking Jardiance, metformin and glyburide. Consider restarting at discharge. While inpatient cont with basal bolus insulin. Historically has peripheral neuropathy in his feet and needs podiatric consultation as outpatient. Defer to PCP. Discussed w/ DM educator - recs: RECOMMENDATIONS AT DISCHARGE: 1.) Restart prior diabetes medications but simplify regimen to help with adherence. * Metformin ER 850mg once daily in AM x 1 week --> Metformin ER 850mg x 2 in AM daily * Jardiance 10mg AM daily * Glimepiride 2mg AM daily - may consider holding off d/t risk of hypoglycemia 2.) Lifestyle changes- balanced meals; mindfulness. 3.) SMBG 1x/day, change time checking from day to day. PRESCRIPTIONS NEEDED AT DISCHARGE: 1.) Metformin ER 2.) Jardiance 3.) Glimepiride - may consider holding off d/t risk of hypoglycemia 4.) OneTouch Ultra2 Meter 5.) OneTouch Ultra Test Strips- to check 2x/day 6.) OneTouch Delica Lancets 33 gauge- to check 2x/day (5) HTN (hypertension): Plan: chronic, uncontrolled 2/2 noncompliance with medication. Pt also reports depending on frozen dinners which are high in sodium. Restarted lisinopril. Repeat BMP in two weeks time for monitoring. (6) HLD (hyperlipidemia): Plan: History of being on simvastatin, but no longer taking. AM Lipid panel obtained - LDL 48, TG 73 DVT proph: Lovenox Full Code confirmed with him on admission Dispo- plan to DC to rehab, CM involved Admission and Anticipated Discharge Date Admission Date: September 08, 2023 Subjective Pt seen in follow up after fall, fever, found positive for coronavirus Pt also not taking his DM meds, A1c elevated at 13.9% Currently sitting up in chair in NAD no current fever, chills, chest pain, shortness of breath, reports some rhinorrhea and some cough- nonproductive no abd. pain, n/v Pt recommends rehab, CM involved. development educator consulted. Sister present at the bedside and updated. Review of Systems Review of Systems: All systems reviewed & are unremarkable except as noted in Subjective Physical Exam Physical Exam: CONSTITUTIONAL: WNWD in NAD EYES: pupils are round and equal bilaterally, normal conjunctivae, no scleral icterus ENT: external ear and nose normal, oropharynx clear NECK: supple RESPIRATORY: normal respiratory effort , minimal rhonchi, no wheezing CARDIOVASCULAR: regular rate and rhythm, S1 and 2 heard without murmurs CHEST: inspection of chest normal GASTROINTESTINAL: soft, nontender, ND, no guarding MUSCULOSKELETAL: head is normocephalic and atraumatic, moves extremities SKIN: warm and dry, erythema along anterior lower extremities and flakiness of skin with poor care of feet noted, poor nail care, no clear wounds present on feet. NEUROLOGIC: answers appropriately, no facial asymmetry, speech fluent, moves extremities Results & Data Results & Data Vital Signs (Past 12 Hours) Vital Signs Temp Pulse Pulse Pulse Resp BP BP 09/16/23 11:45 36.4 C L 62 16 98/62 L 09/16/23 07:50 36.6 C 60 12 112/68 09/16/23 07:13 09/16/23 05:51 57 L 09/16/23 03:45 36.9 C 61 18 126/73 Pulse Ox O2 Del Method 09/16/23 11:45 97 Room Air 09/16/23 07:50 97 Room Air 09/16/23 07:13 Room Air 09/16/23 05:51 09/16/23 03:45 95 Room Air Medications Administered Current Inpatient Medications Acetaminophen (Acetaminophen 325 Mg Tab) 650 mg PO Q4H PRN PRN Reason: Pain or Fever Stop: 10/08/23 22:24 Last Admin: 09/16/23 08:54 Dose: 650 mg Dextrose (Dextrose 50% 50 Ml Syringe) 25 - 50 ml IV UD PRN; Protocol PRN Reason: Hypoglycemia Protocol Stop: 10/08/23 21:13 Enoxaparin Sodium (Enoxaparin Inj 40 Mg/0.4 Ml Syr) 40 mg SQ HS [facility] Stop: 10/08/23 22:24 Last Admin: 09/15/23 21:28 Dose: 40 mg Fluticasone Propionate (Fluticasone Propionate Na Spr 16 Gm Btl) 2 sprays NA HS [facility] Stop: 10/08/23 21:14 Last Admin: 09/15/23 21:27 Dose: 2 sprays Glucagon (Glucagon For Inj 1 Mg Vial) 1 mg SQ UD PRN; Protocol PRN Reason: Hypoglycemia Protocol Stop: 10/08/23 21:13 Glucose (Glucose 10 Tab/Tube) 4 - 8 tab PO UD PRN; Protocol PRN Reason: Hypoglycemia Treatment Stop: 10/08/23 21:13 Glucose (Glucose 40% Gel 15 Gm Tube) 15 - 30 gm PO UD PRN; Protocol PRN Reason: Hypoglycemia Protocol Stop: 10/08/23 21:13 Guaifenesin (Guaifenesin 600 Mg Tabcr) 600 mg PO Q12 [facility] Stop: 10/09/23 09:04 Last Admin: 09/16/23 08:46 Dose: 600 mg Sodium Chloride (Nss) 500 mls @ 80 mls/hr IV .Q6H15M [facility] Stop: 10/09/23 12:29 Last Admin: 09/11/23 14:33 Dose: Not Given Insulin Aspart (Insulin Aspart Per Unit Charge) 0 units SC DAILY@0730 [facility] Stop: 10/08/23 21:14 Last Admin: 09/16/23 08:54 Dose: 7 units Insulin Aspart (Insulin Aspart Per Unit Charge) 0 units SC 1130,1630,2100 [facility] Stop: 10/15/23 11:29 Last Admin: 09/16/23 12:55 Dose: 7 units Insulin Glargine (Lantus Per Unit Charge) 10 units SC QAM [facility] Stop: 10/12/23 08:59 Last Admin: 09/16/23 08:55 Dose: 10 units Lactobacillus Acidophilus (Advanced Probiotic 625 Mg Capsule) 1,250 mg PO DAILY [facility] Stop: 10/09/23 12:44 Last Admin: 09/16/23 08:46 Dose: 1,250 mg Lisinopril (Lisinopril 20 Mg Tab) 20 mg PO QAM [facility] Stop: 10/09/23 08:59 Last Admin: 09/16/23 08:46 Dose: 20 mg Menthol (Cough Drop (Sugar Free) Andreina 24 Andreina/1 Box) 1 andreina BUCCAL NOW PRN PRN Reason: Cough Stop: 10/10/23 13:30 Miscellaneous (Carbohydrates For Hypoglycemia ) 15 - 30 gm PO UD PRN PRN Reason: Hypoglycemia Protocol Stop: 10/08/23 21:13 Miscellaneous Information (Pharmacy Glycemic Mgmt Consult) 1 each N/A UD PRN; Protocol PRN Reason: Consult Stop: 10/11/23 09:50 Polyethylene Glycol (Polyethylene (Miralax) 17 Gm Pack) 17 gm PO DAILY [facility] Stop: 10/16/23 12:59 Sodium Chloride (Sodium Chloride 0.65% Na Soln 45 Ml ([place])) 1 sprays NA TID [facility] Stop: 10/09/23 13:59 Last Admin: 09/16/23 12:55 Dose: 1 sprays (2) Fall from chair Encounter type: initial encounter Qualified Code(s): W07.XXXA - Fall from chair, initial encounter
[2023-09-16] MEDS: POLYETHYLENE (MIRALAX) 17 GM PACK PO SCH (13:17)
[2023-09-17] MEDS: LANTUS PER UNIT CHARGE SC SCH (08:44)
--- NOTE | 2023-09-17 15:24 | Hospitalist Progress Note ---
Date of Service September 17, 2023 Assessment & Plan (1) Sepsis: Plan: per previous hospitalist service notes with addendum: Uncertain if patient has an underlying bacterial infection. No UTI, no pneumonia. Febrile and tachycardic on arrival. Procalcitonin negative. Evidence of possible sinusitis on CT head, however, patient denies any pain in ears or sinuses and no purulent discharge. He does have evidence of a viral infection which is likely responsible for his fever and symptoms. Empiric Rocephin started in the ER - finished empiric 48 hrs Blood cultx - one positive for coag negat. staph - likely contaminant - repeated blood cultx - negative for 5 days (2) Fall from chair: Plan: Ambulatory with a cane at baseline. He reports not sleeping well overnight and fell asleep sliding out of his new recliner which is slippery. Denies chest pain or SOB and no evidence of acute ischemia on EKG with normal HS troponin. No stroke like symptoms and CT head is negative. Mildly elevated CK likely related to prolonged immobilization. Trend in am after IVF given in the ER -> CK elevated c/w mild rhabdo - cont. with IVF. 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 This on top of chronic insomnia and poorly controlled chronic medical conditions are likely the result for his weakness and decline now. PT/OT. Restart medications for these issues. Get him hooked back in with PCP and consider sleep evaluation as outpatient. Admitting provider discussed this plan with him and he verbalized understanding. (3) Coronavirus infection: Plan: cont supportive care efforts including nasal steroids. Not requiring oxygen and no evidence of pneumonia on CXR Cont. w/ guaifenesin, flutter valve, IS, nasal spray (4) DM type 2 (diabetes mellitus, type 2): Plan: Current Hgb A1c 13.9% Uncontrolled at baseline 2/2 noncompliance. Pt with evidence of glucosuria. Historically was taking Jardiance, metformin and glyburide. Consider restarting at discharge. While inpatient cont with basal bolus insulin. Historically has peripheral neuropathy in his feet and needs podiatric consultation as outpatient. Defer to PCP. Discussed w/ DM educator - recs: RECOMMENDATIONS AT DISCHARGE: 1.) Restart prior diabetes medications but simplify regimen to help with adherence. * Metformin ER 850mg once daily in AM x 1 week --> Metformin ER 850mg x 2 in AM daily * Jardiance 10mg AM daily * Glimepiride 2mg AM daily - may consider holding off d/t risk of hypoglycemia 2.) Lifestyle changes- balanced meals; mindfulness. 3.) SMBG 1x/day, change time checking from day to day. PRESCRIPTIONS NEEDED AT DISCHARGE: 1.) Metformin ER 2.) Jardiance 3.) Glimepiride - may consider holding off d/t risk of hypoglycemia 4.) OneTouch Ultra2 Meter 5.) OneTouch Ultra Test Strips- to check 2x/day 6.) OneTouch Delica Lancets 33 gauge- to check 2x/day (5) HTN (hypertension): Plan: chronic, uncontrolled 2/2 noncompliance with medication. Pt also reports depending on frozen dinners which are high in sodium. Restarted lisinopril. Repeat BMP in two weeks time for monitoring. Monitor blood pressure daily (6) HLD (hyperlipidemia): Plan: History of being on simvastatin, but no longer taking. AM Lipid panel obtained - LDL 48, TG 73 DVT proph: Lovenox Full Code confirmed with him on admission Disposition: [id number] evaluation performed with [facility] medical unit secretary Dr. Mancilla She has approved for patient to [facility] to [facility] facility Admission and Anticipated Discharge Date Admission Date: September 08, 2023 Subjective Follow-up for sepsis, viral illness, rhabdomyolysis, etc. Seen resting in bedside chair, comfortable, not in distress States he feels that he is improving overall Still has some weakness, but motivated to ambulate more, and participate with physical Patient reports before becoming ill, he was still working at the [employer] facility, ambulates with a walker no chest pain, dyspnea, palpitations, dizziness No other new symptoms Review of Systems Review of Systems: all noted and negative except for above Physical Exam Physical Exam: General- oriented x 3, not in distress, speaks in sentences with no effort or accessory muscle use Eyes- anicteric Neck- no JVD Lungs- clear breath sounds bilaterally, no rales/wheezes Heart- normal rate, regular rhythm; no murmurs Abdomen- normal bowel sounds, nondistended, soft, nontender Extremities- no pretibial edema, no calf tenderness Neuro- alert, oriented x 3; no gross focal neurologic deficits Skin- warm & dry Results & Data Results & Data Vital Signs (Past 12 Hours) Vital Signs Temp Pulse Pulse Pulse Resp BP BP 09/17/23 11:45 36.8 C 79 18 114/67 09/17/23 07:51 36.5 C 60 18 112/64 09/17/23 05:31 62 09/17/23 03:36 36.6 C 59 L 18 130/74 Pulse Ox O2 Del Method 09/17/23 11:45 96 Room Air 09/17/23 07:51 96 Room Air 09/17/23 05:31 09/17/23 03:36 97 Room Air all noted and reviewed including below (2) Fall from chair Encounter type: initial encounter Qualified Code(s): W07.XXXA - Fall from chair, initial encounter
--- NOTE | 2023-09-17 15:42 | Discharge Summary ---
Discharge Summary Date of Service September 17, 2023 Notes For Next Care Provider Medication Changes From Visit Please see assessment and plan below. Admission HPI Per Admitting Provider 73-year-old diabetic man presents via EMS after a fall at home. He was weak evidently from a upper respiratory tract infection that has been ongoing and laid on the floor for several hours. He was able to crawl to the phone and call for help. His sister assisted with initial history and felt her brother may have fallen asleep and slid out of his chair. The patient himself did not know why he fell. Over the past few days he reports sneezing coughing and nasal congestion and bio fire reveals a coronavirus etiology. EMS noted an empty bottle of Jardiance on the countertop near his chair but patient admits to not taking any medications over the past 1 to 2 months. The patient lives alone and is still working in some capacity. He is reportedly able to complex activities of daily living. He is unclear if he is driving. Initial workup in the ER included a head CT revealing possible right maxillary sinusitis and a chest x- ray that is clear. CBC is unrevealing and CHEM panel is within normal limits other than a creatinine which is 1.2 and at his baseline per review of previous inpatient records over the years. Also abnormal as his glucose which is 412 and magnesium which is 1.6. CK is also mildly elevated at 307. Procalcitonin was normal at 0.05. He was given broad-spectrum antibiotics including Rocephin for possible sepsis and given 1.5 L of IV fluids. EKG revealed sinus tachycardia with a rate of 117 with first-degree AV block. After fluid resuscitation heart rate improved to less than 100. Highly sensitive troponin was normal at 8.6. Sneezing for a few days Nasal itchiness, denies sinus pain runny nose some coughing, nonproductive + fevers or chills at home x several days, febrile on arrival today didn't take anything OTC at home prior to arrival no issues appetite makes food for himself and eats frozen Still drives and lives alone. 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 and reports no SOB or chest pain Last worked yesterday 7a-3p no diarrhea/vomiting stopped taking diabetic meds bc "I didn't think I was making any time with it"- clarified that he felt it wasn't working taking metformin, jardiance was taking BP meds but stopped those, also he isn't sure why was historically on lis/HCTZ, keithance 10, metformin 1000mg BID, and glyburide and simvastatin for dyslipidemia not sleeping at night much including last night reports falling asleep at work on occasion has a sister and nephrew that lives locally--doesn't have a medical POA but reports to me that "Jose Gonzalez" another nephew of his would be the one to make his medical decisions for him if he becomes incapacitated. Jose lives in [place]. Received care with [facility] a couple of years ago, but also mentioned seeing Moshe Cantor (heraclio) and Praful Lu. He is fine with following up and starting to see someone with [facility] post hospital stay. Admission Exam Per Admitting Provider CONSTITUTIONAL: WNWD, vitals as above, generally well-appearing, NAD EYES: pupils are round and equal bilaterally, normal conjunctivae, no scleral icterus ENT: external ear and nose normal, oropharynx clear, no TM abnormality on the right, cerumen in external canal blocking visualization of TM on the left, no maxillary or ethmoid sinus tenderness NECK: trachea midline, no lymphadenopathy RESPIRATORY: clear to auscultation bilaterally, no crackles, rales or wheezes, normal respiratory effort CARDIOVASCULAR: regular rate and rhythm, S1 and 2 heard without murmurs, gallops or rubs, no JVD, no peripheral edema, CHEST: inspection of chest was normal GASTROINTESTINAL: soft, nontender, ND, no guarding MUSCULOSKELETAL: strength 5/5 throughout, head is normocephalic and atraumatic SKIN: warm and dry, erythema along anterior lower extremities and flakiness of skin with poor care of feet noted, poor nail care, no clear wounds present on feet. NEUROLOGIC: No facial palsy, no dysarthria. CN 2-12 grossly intact, no sensory deficit, normal cognition, normal speech, no tremor PSYCHIATRIC: alert cooperative and oriented to person, place and time. Euthymic mood, makes good eye contact, language grossly intact, recent and remote memory grossly intact. Principal Dx & Hospital Course #1 = Principal Diagnosis (1) Sepsis: per previous hospitalist service notes with addendum: Uncertain if patient has an underlying bacterial infection. No UTI, no pneumonia. Febrile and tachycardic on arrival. Procalcitonin negative. Evidence of possible sinusitis on CT head, however, patient denies any pain in ears or sinuses and no purulent discharge. He does have evidence of a viral infection which is likely responsible for his fever and symptoms. Empiric Rocephin started in the ER - finished empiric 48 hrs Blood cultx - one positive for coag negat. staph - likely contaminant - repeated blood cultx - negative for 5 days (2) Fall from chair: Ambulatory with a cane at baseline. He reports not sleeping well overnight and fell asleep sliding out of his new recliner which is slippery. Denies chest pain or SOB and no evidence of acute ischemia on EKG with normal HS troponin. No stroke like symptoms and CT head is negative. Mildly elevated CK likely related to prolonged immobilization. Trend in am after IVF given in the ER -> CK elevated c/w mild rhabdo - cont. with IVF. 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 This on top of chronic insomnia and poorly controlled chronic medical conditions are likely the result for his weakness and decline now. PT/OT. Restart medications for these issues. Get him hooked back in with PCP and consider sleep evaluation as outpatient. Admitting provider discussed this plan with him and he verbalized understanding. (3) Coronavirus infection: cont supportive care efforts including nasal steroids. Not requiring oxygen and no evidence of pneumonia on CXR Cont. w/ guaifenesin, flutter valve, IS, nasal spray (4) DM type 2 (diabetes mellitus, type 2): Current Hgb A1c 13.9% Uncontrolled at baseline 2/2 noncompliance. Pt with evidence of glucosuria. Historically was taking Jardiance, metformin and glyburide. Consider restarting at discharge. While inpatient cont with basal bolus insulin. Historically has peripheral neuropathy in his feet and needs podiatric consultation as outpatient. Defer to PCP. Discussed w/ DM educator - recs: RECOMMENDATIONS AT DISCHARGE: 1.) Restart prior diabetes medications but simplify regimen to help with adherence. * Metformin ER 850mg once daily in AM x 1 week --> Metformin ER 850mg x 2 in AM daily * Jardiance 10mg AM daily * Glimepiride 2mg AM daily - may consider holding off d/t risk of hypoglycemia 2.) Lifestyle changes- balanced meals; mindfulness. 3.) SMBG 1x/day, change time checking from day to day. (5) HTN (hypertension): chronic, uncontrolled 2/2 noncompliance with medication. Pt also reports d epending on frozen dinners which are high in sodium. Restarted lisinopril. Repeat BMP in two weeks time for monitoring. Monitor blood pressure daily (6) HLD (hyperlipidemia): History of being on simvastatin, but no longer taking. AM Lipid panel obtained - LDL 48, TG 73 DVT proph: Lovenox Full Code confirmed with him on admission Disposition: [id number] evaluation performed with [facility] medical detail representative Dr. Mancilla She has approved for patient to transition to long-term facility Discharge Exam General- oriented x 3, not in distress, speaks in sentences with no effort or accessory muscle use Eyes- anicteric Neck- no JVD Lungs- clear breath sounds bilaterally, no rales/wheezes Heart- normal rate, regular rhythm; no murmurs Abdomen- normal bowel sounds, nondistended, soft, nontender Extremities- no pretibial edema, no calf tenderness Neuro- alert, oriented x 3; no gross focal neurologic deficits Skin- warm & dry Updated Medication List Medication Instructions Recorded Confirmed Type blood sugar diagnostic (OneTouch #50 ea 09/12/23 Rx Ultra Test strips) blood-glucose meter (OneTouch #1 ea 09/12/23 Rx Ultra2 Meter) empagliflozin 10 mg tablet 10 mg PO DAILY #30 tabs 09/12/23 Rx (Jardiance) lancets 33 gauge #100 ea 09/12/23 Rx metformin 750 mg tablet,extended 750 mg PO DAILY #30 tabs 09/12/23 Rx release 24 hr lisinopril 20 mg tablet 20 mg PO QAM 30 days #30 tabs 09/17/23 Rx Hospital Stay Data Consultations 09/08/23 19:36 ED Decision to Admit Stat Diagnostic Imagining Performed Laboratory Results WBC 6.08 K/ul (4.8-10.8) 09/13/23 05:41 RBC 4.70 M/uL (4.70-6.10) 09/13/23 05:41 Hgb 13.9 g/dl (14.0-18.0) L 09/13/23 05:41 Hct 41.6 % (42.0-52.0) L 09/13/23 05:41 MCV 88.5 fL (80.0-100.0) 09/13/23 05:41 MCH 29.6 pg (25.0-34.0) 09/13/23 05:41 MCHC 33.4 g/dL (32.0-36.0) 09/13/23 05:41 RDW Std Deviation 41.7 fL (36.4-46.3) 09/13/23 05:41 RDW Coeff of Duy[place] 12.7 % (11.5-14.5) 09/13/23 05:41 Plt Count 174 K/uL (130-400) 09/13/23 05:41 MPV 10.7 fL (9.4-12.4) 09/13/23 05:41 Immature Gran % (Auto) 0.6 % 09/08/23 15:23 Neut % (Auto) 86.1 % 09/08/23 15:23 Lymph % (Auto) 4.9 % 09/08/23 15:23 Wilkinson % (Auto) 8.1 % 09/08/23 15:23 Eos % (Auto) 0.1 % 09/08/23 15:23 Baso % (Auto) 0.2 % 09/08/23 15:23 Neut # (Auto) 8.17 K/uL (1.40-6.50) H 09/08/23 15:23 Lymph # (Auto) 0.47 K/uL (1.20-3.40) L 09/08/23 15:23 Wilkinson # (Auto) 0.77 K/uL (0.11-0.59) H 09/08/23 15:23 Eos # (Auto) 0.01 K/uL (0.00-0.50) 09/08/23 15:23 Baso # (Auto) 0.02 K/uL (0.00-0.20) 09/08/23 15:23 Immature Gran # (Auto) 0.06 K/uL (0.01-0.20) 09/08/23 15:23 Sodium 142 mmol/L (136-145) 09/13/23 05:41 Potassium 4.2 mmol/L (3.5-5.1) 09/13/23 05:41 Chloride 106 mmol/L (98-107) 09/13/23 05:41 Carbon Dioxide 31 mmol/L (21-32) 09/13/23 05:41 Anion Gap 5 (3-11) 09/13/23 05:41 BUN 19 mg/dl (6-23) 09/13/23 05:41 Creatinine 0.97 mg/dl (0.6-1.4) 09/13/23 05:41 Est Cr Clr Drug Dosing 83.6 ml/min 09/13/23 05:41 Est GFR ( Amer) 88.1 ml/min 09/13/23 05:41 Est GFR (Non-Af Amer) 76.1 ml/min 09/13/23 05:41 BUN/Creatinine Ratio 19.6 (10-20) 09/13/23 05:41 Glucose 92 mg/dl (70-99(Fasting)) 09/13/23 05:41 POC Glucose 158 mg/dl (70-99) H 09/17/23 12:17 Estimat Average Glucose 352 mg/dl 09/09/23 04:28 Hemoglobin A1c 13.9 % (4.5-5.6) H 09/09/23 04:28 Lactate 1.4 mmol/L (0.4-2.0) 09/08/23 15:23 Calcium 9.2 mg/dl (8.6-10.3) 09/13/23 05:41 Phosphorus 3.5 mg/dl (2.5-4.9) 09/13/23 05:41 Magnesium 2.0 mg/dl (1.7-2.4) 09/13/23 05:41 Total Bilirubin 1.1 mg/dl (0.2-1.0) H 09/08/23 15:23 AST 18 U/L (13-39) 09/08/23 15:23 ALT 14 U/L (7-52) 09/08/23 15:23 Alkaline Phosphatase 119 U/L (34-104) H 09/08/23 15:23 Total Creatine Kinase 633 U/L (30-223) H 09/12/23 06:38 Troponin I High Sens 8.6 pg/ml (0-20) 09/08/23 15:23 Total Protein 7.2 gm/dl (6.0-8.3) 09/08/23 15:23 Albumin 4.0 gm/dl (3.4-5.0) 09/08/23 15:23 Globulin 3.2 gm/dl (2.5-4.0) 09/08/23 15:23 Albumin/Globulin Ratio 1.3 (0.9-2) 09/08/23 15:23 Triglycerides 73 mg/dl (0-150) 09/09/23 04:28 Cholesterol 103 mg/dl (0-200) 09/09/23 04:28 LDL Cholesterol, Calc 48 mg/dl 09/09/23 04:28 VLDL Cholesterol, Calc 15 mg/dl (0-30) 09/09/23 04: HDL Cholesterol 40 mg/dl 09/09/23 04:28 Cholesterol/HDL Ratio 2.6 (0-5) 09/09/23 04:28 Lipase 14 U/L (11-82) 09/08/23 15:23 Procalcitonin 0.05 ng/ml (0-0.5) 09/08/23 15:23 Urine Color Yellow 09/08/23 Unknown Urine Appearance Clear (Clear) 09/08/23 Unknown Urine pH 5.0 (4.5-7.5) 09/08/23 Unknown Ur Specific [place] 1.034 (1.000-1.030) H 09/08/23 Unknown Urine Protein Trace (Negative) H 09/08/23 Unknown Urine Glucose (UA) 3+ (Negative) H 09/08/23 Unknown Urine Ketones Trace (Negative) H 09/08/23 Unknown Urine Blood Trace (Negative) H 09/08/23 Unknown Urine Nitrite Negative (Negative) 09/08/23 Unknown Urine Bilirubin Negative (Negative) 09/08/23 Unknown Urine Urobilinogen Negative (Negative) 09/08/23 Unknown Ur Leukocyte Esterase Negative (Negative) 09/08/23 Unknown Urine WBC (Auto) 0 /hpf (0-5) 09/08/23 Unknown Urine RBC (Auto) 0-4 /hpf (0-4) 09/08/23 Unknown U Hyaline Cast (Auto) 0 /lpf (0-5) 09/08/23 Unknown U Epithel Cells (Auto) 0-5 /lpf (0-5) 09/08/23 Unknown Urine Bacteria (Auto) Negative (Negative) 09/08/23 Unknown Adenovirus (PCR) Not Detected (NotDetected) 09/08/23 14:47 B. pertussis DNA (PCR) Not Detected (NotDetected) 09/08/23 14:47 B.parapertussis DNA PCR Not Detected (NotDetected) 09/08/23 14:47 C. pneumoniae DNA (PCR) Not Detected (NotDetected) 09/08/23 14:47 Coronavirus OC43 (PCR) DETECTED (NotDetected) A 09/08/23 14:47 Coronavirus HKU1 (PCR) Not Detected (NotDetected) 09/08/23 14:47 Coronavirus 229E (PCR) Not Detected (NotDetected) 09/08/23 14:47 SARS-CoV-2 (PCR) Not Detected (NotDetected) 09/08/23 14:47 Coronavirus NL63 (PCR) Not Detected (NotDetected) 09/08/23 14:47 Hepatitis C Ab (EIA) NON-REACTIVE (NON-REACTIVE) 09/09/23 04:28 Human Metapneumovir PCR Not Detected (NotDetected) 09/08/23 14:47 Influenza Type A (PCR) Not Detected (NotDetected) 09/08/23 14:47 Influenza Type B (PCR) Not Detected (NotDetected) 09/08/23 14:47 M. pneumoniae (PCR) Not Detected (NotDetected) 09/08/23 14:47 Parainfluenza 1 (PCR) Not Detected (NotDetected) 09/08/23 14:47 Parainfluenza 2 (PCR) Not Detected (NotDetected) 09/08/23 14:47 Parainfluenza 3 (PCR) Not Detected (NotDetected) 09/08/23 14:47 Parainfluenza 4 (PCR) Not Detected (NotDetected) 09/08/23 14:47 RSV (PCR) Not Detected (NotDetected) 09/08/23 14:47 Entero/Rhino (PCR) Not Detected (NotDetected) 09/08/23 14:47 Staphylococcus sp PCR DETECTED (NotDetected) A 09/08/23 15:23 Bld Cult ID Panel PCR See PCR Comment (NotDetected) 09/08/23 15:23 Impressions Chest X-Ray 09/08/23 14:57 XR chest 1V portable HISTORY: 73 years-old Male sepsis acute sepsis COMPARISON: None TECHNIQUE: AP view the chest FINDINGS: Cardiomediastinal and hilar silhouettes are within normal limits. Mild right hemidiaphragmatic elevation. Subsegmental bibasilar atelectasis again noted. No pneumothorax, pleural effusion or airspace consolidation. Bones appear grossly intact. IMPRESSION: No acute process. ACT 112: Negative or not required by law. The above report was generated using voice recognition software. It may contain grammatical, syntax or spelling errors. Electronically signed by: Sandip Fry M.D. 09/08/2023 3:[address] 09/08/23 15:16 CT OF THE HEAD WITHOUT CONTRAST CLINICAL HISTORY: fall, on floor, meets sepsis COMPARISON STUDY: No previous studies for comparison. CT DOSE: 1250.21 mGy.cm TECHNIQUE: Helical axial images of the head were obtained without IV contrast. Automated exposure control was utilized for the study. A dose lowering technique was utilized adhering to the principles of ALARA. FINDINGS: This exam is moderately compromised by motion artifact. No acute intracranial hemorrhage, midline shift or mass effect is present. Ventricular system is unremarkable. Basal cisterns are patent. There are no extra axial collections. There are no findings to suggest acute dural sinus thrombosis or acute territorial infarct. Right maxillary sinus is largely opacified. There are secretions within the right maxillary sinus. Tiny air-fluid level within the left maxillary sinus is noted. There is moderate ethmoid sinus mucosal thickening. No displaced calvarial fractures are identified. IMPRESSION: 1. No acute intracranial findings. Exam moderately compromised by motion artifact. 2. Largely opacified right maxillary sinus which contains secretions. This may reflect acute sinusitis. ACT 112: Negative or not required by law. Electronically signed by: Song Salmeron M.D. 09/08/2023 4:05 PM Pending Results Patient Have Any Pending Studies at Discharge: No Discharge Instructions Given to Patient (Per Discharging Provider) Please check blood pressure twice daily. Please monitor blood glucose at least twice daily. Fall precautions please. Please refer to accompanying hospital discharge summary for further details. Total Time Total Time Spent Total Time Spent (In Minutes): >30 minutes
== END 2023-09-17 16:18 | DRG 872 ==
LOC: ED 14:37 → 2W 19:46 → SUATTDRO 19:46 → 2W 21:45

== ENCOUNTER 2025-06-14 08:26 | Observation (INO) ==
--- NOTE | 2025-06-14 09:24 | Emergency Department Note ---
ED Provider Note History of Present Illness Chief Complaint: Pain (Generalized) Stated Complaint: NECK PAIN, PAIN ALL OVER Time Seen by Provider: 06/14/25 09:00 Source: patient Mode of arrival: ambulatory Limitations: no limitations Patient is a 75-year-old male who presents to the emergency department with complaints of generalized pain. Patient states that he has been feeling "off" for some time and when he was at work today his coworker thought that he did not look well and brought him to the emergency department to be evaluated. Patient is alert and oriented x 4. Patient states that when he is getting out of the vehicle to come into the emergency department that he slid onto the ground when getting out of his car. Patient denies any has had and denies any loss of consciousness. Home Medications Medication Instructions Recorded Confirmed Type blood-glucose meter (OneTouch #1 ea 09/12/23 03/27/25 Rx Ultra2 Meter) furosemide 40 mg tablet 40 mg PO QAM #90 tabs 06/30/24 06/14/25 Rx metformin 750 mg tablet,extended 750 mg PO BID 90 days #180 tabs 06/30/24 06/14/25 Rx release 24 hr olmesartan 20 mg tablet 20 mg PO DAILY #90 tabs 06/30/24 06/14/25 Rx empagliflozin 25 mg tablet 25 mg PO DAILY 90 days #90 tabs 10/27/24 06/14/25 Rx glipizide 10 mg tablet, extended 10 mg PO DAILY #90 tabs 11/11/24 06/14/25 Rx release 24 hr lancets 33 gauge #100 ea 11/22/24 03/27/25 Rx blood sugar diagnostic (OneTouch #100 ea 11/23/24 03/27/25 Rx Ultra Test strips) Allergies Allergy/AdvReac Type Severity Reaction Status Date / Time No Known Allergies Allergy Verified 06/14/25 10:33 Past Med/Surg History Problem List (Updated 06/16/25 @ 01:09 by DUSTIN Sal) TYLOR (acute kidney injury) (Acute) Neck pain (Acute) Venous stasis dermatitis Hypotension Fall Tachycardia Onychomycosis Tinea pedis Lower extremity edema (Acute) Fall from chair (Acute) Abdominal pain (Acute) Loss of sensation (Chronic) Irritable bowel syndrome (Acute) Prostate cancer screening encounter, options and risks discussed (Acute) Medical History BPH with obstruction/lower urinary tract symptoms Renal cyst, acquired Vitamin B12 deficiency Vitamin D deficiency Pancreatitis IBS (irritable bowel syndrome) DM type 2 (diabetes mellitus, type 2) HLD (hyperlipidemia) HTN (hypertension) Acute dehydration Encounter for pre-operative examination Sepsis Coronavirus infection BPH (benign prostatic hyperplasia) Chronic osteoarthritis Gastroesophageal reflux disease Obesity, Class I, BMI 30-34.9 Diabetic peripheral neuropathy Surgical History History of cataract surgery History of tonsillectomy History of colonoscopy Hx of straightening of nasal septum Family History Father , age 52 Myocardial infarction Mother , age 87; bloot clot near the liver?? 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 Beliefs That Will Affect Care: None marital status: Single Current Living Situation: Alone current occupational status: employed 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 How many Children do You have: 0 Other Information That Helps Us Care for You: No Feels Safe at Home: Yes Safety Concerns: Feels Safe At This Time Diet: lactose free and regular caffeine: Yes Dental Care, Regularly: No Physical Activity Frequency: Does not Exercise Seatbelt Use: always Assistive Devices: Cane Physical Exam Vital Signs Vital Signs - 24 hr 06/14/25 08:27 06/14/25 08:50 06/14/25 09:15 Temperature 36.4 C L Temperature Source Temporal Artery Scan Pulse Rate 63 124 H Pulse Rate [Right Finger] 126 H Pulse Rhythm [Right Finger] Regular Respiratory Rate 20 22 Respiratory Effort / Characteristics Non-Labored Spontaneous Non-Labored Labored Respiratory Depth Normal Normal Blood Pressure [Left Arm] 89/57 L Blood Pressure Mean [Left Arm] 67 Pulse Oximetry 96 94 Oxygen Delivery Method Room Air Room Air Sepsis Recent Fever Within 48 Hours No Sepsis New/Unexplained Change in Mental Status N/A Sepsis Action Taken by Nursing No Action Required VITAL SIGNS - Vital signs and nursing notes were reviewed. GENERAL -75-year-old male appearing their stated age, who is in no acute distress. Communicates well with provider and answers questions appropriately. HEAD - Normocephalic, Atraumatic. No Turcios's Sign or Raccoon's Eyes. No depressed skull fractures palpable. EYES - PERRL with EOMI bilaterally. Sclera anicteric. Conjunctiva pink and moist with no injection noted. EARS - No deformities of external structures noted on gross examination bilaterally. NOSE - Midline and without cyanosis. No epistaxis or purulent drainage noted. NECK - Neck with FROM. Patient notes a mild increase in pain with full range of motion. No lymphadenopathy noted. LUNGS - Chest wall symmetric without accessory muscle use, intercostals retractions, or central cyanosis. Normal vesicular breath sounds CTA B/L. No wheezes, rales, or rhonchi appreciated. CARDIAC - RRR with S1/S2. No murmur, rubs, or gallops appreciated. EXTREMITIES - No edema present. +5/5 strength noted in UE/LE bilaterally. NEUROLOGIC -Sensory intact to light touch throughout. PSYCH - A&Ox3 and cooperates fully with examiner. Pt is very pleasant and interacts well with examiner Course Administered Medications Cyanocobalamin (Cyanocobalamin 1000 Mcg/Ml Vial) 1,000 mcg IM QAM [facility] Stop: 06/20/25 09:29 Last Admin: 06/15/25 11:54 Dose: 1,000 mcg Documented By: GENTRY Insulin Aspart (Insulin Aspart Per Unit Charge) 0 units SC ACHS [facility] Stop: 07/14/25 17:36 Last Admin: 06/15/25 20:56 Dose: Not Given Documented By: Admin: 06/15/25 17:33 Dose: 3 units Documented By: GENTRY Co-signed By: ROLANDO Admin: 06/15/25 12:41 Dose: 3 units Documented By: GENTRY Co-signed By: MATTEO Admin: 06/15/25 08:40 Dose: 3 units Documented By: GENTRY Co-signed By: MATTEO Admin: 06/14/25 20:37 Dose: Not Given Documented By: [facility] Admin: 06/14/25 19:05 Dose: 4 units Documented By: MTP Co-signed By: VINCENZO Discontinued Medications Sodium Chloride (Nss) 1,000 mls @ 999 mls/hr IV .Q1H1M STA Stop: 06/14/25 10:09 Last Infusion: 06/14/25 10:56 Dose: Infused Documented By: [facility] Admin: 06/14/25 09:48 Dose: 999 mls/hr Documented By: jonathan Cefazolin Sodium (Ancef 2000mg) 2,000 mg in 15 mls @ 3.75 mls/min IV NOW STA Stop: 06/14/25 12:49 Last Admin: 06/14/25 14:11 Dose: Not Given Documented By: nhbessie Sodium Chloride (Nss) 500 mls @ 999 mls/hr IV .Q31M ONE Stop: 06/14/25 13:17 Last Infusion: 06/14/25 15:28 Dose: Infused Documented By: Admin: 06/14/25 13:10 Dose: 999 mls/hr Documented By: MR Sodium Chloride (Nss) 1,000 mls @ 999 mls/hr IV .Q1H1M ONE Stop: 06/14/25 14:07 Last Infusion: 06/14/25 15:28 Dose: Infused Documented By: Admin: 06/14/25 13:10 Dose: 999 mls/hr Documented By: MR Ceftriaxone Sodium (Rocephin) 2,000 mg in 50 mls @ 100 mls/hr IV NOW STA Stop: 06/14/25 14:24 Last Infusion: 06/14/25 15:28 Dose: Infused Documented By: Admin: 06/14/25 14:27 Dose: 100 mls/hr Documented By: MR Sodium Chloride (Nss) 1,000 mls @ 75 mls/hr IV .[id number] FREDO Stop: 06/15/25 06:56 Last Infusion: 06/15/25 06:25 Dose: Infused Documented By: [facility] Admin: 06/14/25 17:51 Dose: 75 mls/hr Documented By: [facility] Medical Decision Making Differential Diagnosis Intracranial hemorrhage, subdural hematoma, skull fracture, cervical fracture, cervical subluxation, generalized weakness, COVID, flu, electrolyte imbalance, cardiac arrhythmia, among others Medical Records Attestation: I reviewed the patient's medical records. Home Medications was personally reviewed by me Laboratory Data Attestation: I reviewed the patient's lab results. 06/15/25 05:57 06/16/25 06:22 Lab Results 06/14/25 06/14/25 06/14/25 Range/Units 09:21 09:24 09:24 WBC 11.85 H (4.8-10.8) K/ul RBC 4.71 (4.70-6.10) M/uL Hgb 13.7 L (14.0-18.0) g/dL Hct 41.9 L (42.0-52.0) % MCV 89.0 (80.0-100.0) fL MCH 29.1 (25.0-34.0) pg MCHC 32.7 (32.0-36.0) g/dL RDW Std Deviation 42.9 (36.4-46.3) fL RDW Coeff of Duyen 13.2 (11.5-14.5) % Plt Count 180 (130-400) K/uL MPV 10.4 (9.4-12.4) fL Immature Gran % (Auto) 0.3 % Neut % (Auto) 83.8 % Lymph % (Auto) 6.8 % [place] % (Auto) 8.3 % Eos % (Auto) 0.4 % Baso % (Auto) 0.4 % Neut # (Auto) 9.93 H (1.40-6.50) K/uL Lymph # (Auto) 0.81 L (1.20-3.40) K/uL [place] # (Auto) 0.98 H (0.11-0.59) K/uL Eos # (Auto) 0.05 (0.00-0.50) K/uL Baso # (Auto) 0.05 (0.00-0.20) K/uL Immature Gran # (Auto) 0.03 (0.01-0.20) K/uL ESR 20 (0-20) mm/hr PT 11.7 (9.0-12.0) Seconds INR 1.1 (0.9-1.1) APTT 24 (21-31) Seconds PTT Ratio 0.9 Sodium 138 (136-145) mmol/L Potassium 4.2 (3.5-5.1) mmol/L Chloride 103 (98-107) mmol/L Carbon Dioxide 25 (21-32) mmol/L Anion Gap 10 (3-11) BUN 36 H (6-23) mg/dl Creatinine 1.80 H (0.6-1.4) mg/dl Est Cr Clr Drug Dosing Not Reportable eGFR 38.29 BUN/Creatinine Ratio 20.0 (10-20) Glucose 282 H (70-99(Fasting)) mg/dl Lactate (0.4-2.0) mmol/L Calcium 9.1 (8.6-10.3) mg/dl Magnesium Cancelled 2.3 Total Bilirubin 1.0 (0.2-1.0) mg/dl AST 15 (13-39) U/L ALT 10 (7-52) U/L Alkaline Phosphatase 81 (34-104) U/L Troponin I High Sens 12.4 (0-20) pg/ml C-Reactive Protein < 0.50 (0-0.5) mg/dl Total Protein 6.8 (6.0-8.3) gm/dl Albumin 4.0 (3.4-5.0) gm/dl Globulin 2.8 (2.5-4.0) gm/dl Albumin/Globulin Ratio 1.4 (0.9-2) TSH 3.245 (0.300-4.500) uIu/ml Urine Color Urine Appearance (Clear) Urine pH (4.5-7.5) Ur Specific [place] (1.000-1.030) Urine Protein (Negative) Urine Glucose (UA) (Negative) Urine Ketones (Negative) Urine Blood (Negative) Urine Nitrite (Negative) Urine Bilirubin (Negative) Urine Urobilinogen (Negative) Ur Leukocyte Esterase (Negative) Urine Comment Adenovirus (PCR) (NotDetected) B. pertussis DNA (PCR) (NotDetected) B.parapertussis DNA PCR (NotDetected) C. pneumoniae DNA (PCR) (NotDetected) Coronavirus OC43 (PCR) (NotDetected) Coronavirus HKU1 (PCR) (NotDetected) Coronavirus 229E (PCR) (NotDetected) SARS-CoV-2 (PCR) (NotDetected) Coronavirus NL63 (PCR) (NotDetected) Hepatitis C Ab Screen (Negative) Human Metapneumovir PCR (NotDetected) Influenza Type A (PCR) (NotDetected) Influenza Type B (PCR) (NotDetected) M. pneumoniae (PCR) (NotDetected) Parainfluenza 1 (PCR) (NotDetected) Parainfluenza 2 (PCR) (NotDetected) Parainfluenza 3 (PCR) (NotDetected) Parainfluenza 4 (PCR) (NotDetected) RSV (PCR) (NotDetected) Entero/Rhino (PCR) (NotDetected) 06/14/25 06/14/25 06/14/25 Range/Units 09:26 10:53 11:59 WBC (4.8-10.8) K/ul RBC (4.70-6.10) M/uL Hgb (14.0-18.0) g/dL Hct (42.0-52.0) % MCV (80.0-100.0) fL MCH (25.0-34.0) pg MCHC (32.0-36.0) g/dL RDW Std Deviation (36.4-46.3) fL RDW Coeff of Duyen (11.5-14.5) % Plt Count (130-400) K/uL MPV (9.4-12.4) fL Immature Gran % (Auto) % Neut % (Auto) % Lymph % (Auto) % [place] % (Auto) % Eos % (Auto) % Baso % (Auto) % Neut # (Auto) (1.40-6.50) K/uL Lymph # (Auto) (1.20-3.40) K/uL [place] # (Auto) (0.11-0.59) K/uL Eos # (Auto) (0.00-0.50) K/uL Baso # (Auto) (0.00-0.20) K/uL Immature Gran # (Auto) (0.01-0.20) K/uL ESR (0-20) mm/hr PT (9.0-12.0) Seconds INR (0.9-1.1) APTT (21-31) Seconds PTT Ratio Sodium (136-145) mmol/L Potassium (3.5-5.1) mmol/L Chloride (98-107) mmol/L Carbon Dioxide (21-32) mmol/L Anion Gap (3-11) BUN (6-23) mg/dl Creatinine (0.6-1.4) mg/dl Est Cr Clr Drug Dosing eGFR BUN/Creatinine Ratio (10-20) Glucose (70-99(Fasting)) mg/dl Lactate (0.4-2.0) mmol/L Calcium (8.6-10.3) mg/dl Magnesium Total Bilirubin (0.2-1.0) mg/dl AST (13-39) U/L ALT (7-52) U/L Alkaline Phosphatase (34-104) U/L Troponin I High Sens (0-20) pg/ml C-Reactive Protein (0-0.5) mg/dl Total Protein (6.0-8.3) gm/dl Albumin (3.4-5.0) gm/dl Globulin (2.5-4.0) gm/dl Albumin/Globulin Ratio (0.9-2) TSH (0.300-4.500) uIu/ml Urine Color Yellow Urine Appearance Clear (Clear) Urine pH 5.0 (4.5-7.5) Ur Specific [place] 1.015 (1.000-1.030) Urine Protein Negative (Negative) Urine Glucose (UA) 3+ H (Negative) Urine Ketones Negative (Negative) Urine Blood Negative (Negative) Urine Nitrite Negative (Negative) Urine Bilirubin Negative (Negative) Urine Urobilinogen Negative (Negative) Ur Leukocyte Esterase Negative (Negative) Urine Comment Adenovirus (PCR) Not Detected (NotDetected) B. pertussis DNA (PCR) Not Detected (NotDetected) B.parapertussis DNA PCR Not Detected (NotDetected) C. pneumoniae DNA (PCR) Not Detected (NotDetected) Coronavirus OC43 (PCR) Not Detected (NotDetected) Coronavirus HKU1 (PCR) Not Detected (NotDetected) Coronavirus 229E (PCR) Not Detected (NotDetected) SARS-CoV-2 (PCR) Not Detected (NotDetected) Coronavirus NL63 (PCR) Not Detected (NotDetected) Hepatitis C Ab Screen Negative (Negative) Human Metapneumovir PCR Not Detected (NotDetected) Influenza Type A (PCR) Not Detected (NotDetected) Influenza Type B (PCR) Not Detected (NotDetected) M. pneumoniae (PCR) Not Detected (NotDetected) Parainfluenza 1 (PCR) Not Detected (NotDetected) Parainfluenza 2 (PCR) Not Detected (NotDetected) Parainfluenza 3 (PCR) Not Detected (NotDetected) Parainfluenza 4 (PCR) Not Detected (NotDetected) RSV (PCR) Not Detected (NotDetected) Entero/Rhino (PCR) Not Detected (NotDetected) 06/14/25 06/14/25 Range/Units 14:17 14:19 WBC (4.8-10.8) K/ul RBC (4.70-6.10) M/uL Hgb (14.0-18.0) g/dL Hct (42.0-52.0) % MCV (80.0-100.0) fL MCH (25.0-34.0) pg MCHC (32.0-36.0) g/dL RDW Std Deviation (36.4-46.3) fL RDW Coeff of Duyen (11.5-14.5) % Plt Count (130-400) K/uL MPV (9.4-12.4) fL Immature Gran % (Auto) % Neut % (Auto) % Lymph % (Auto) % [place] % (Auto) % Eos % (Auto) % Baso % (Auto) % Neut # (Auto) (1.40-6.50) K/uL Lymph # (Auto) (1.20-3.40) K/uL [place] # (Auto) (0.11-0.59) K/uL Eos # (Auto) (0.00-0.50) K/uL Baso # (Auto) (0.00-0.20) K/uL Immature Gran # (Auto) (0.01-0.20) K/uL ESR (0-20) mm/hr PT (9.0-12.0) Seconds INR (0.9-1.1) APTT (21-31) Seconds PTT Ratio Sodium (136-145) mmol/L Potassium (3.5-5.1) mmol/L Chloride (98-107) mmol/L Carbon Dioxide (21-32) mmol/L Anion Gap (3-11) BUN (6-23) mg/dl Creatinine (0.6-1.4) mg/dl Est Cr Clr Drug Dosing eGFR BUN/Creatinine Ratio (10-20) Glucose (70-99(Fasting)) mg/dl Lactate 1.2 (0.4-2.0) mmol/L Calcium (8.6-10.3) mg/dl Magnesium Total Bilirubin (0.2-1.0) mg/dl AST (13-39) U/L ALT (7-52) U/L Alkaline Phosphatase (34-104) U/L Troponin I High Sens 14.3 (0-20) pg/ml C-Reactive Protein (0-0.5) mg/dl Total Protein (6.0-8.3) gm/dl Albumin (3.4-5.0) gm/dl Globulin (2.5-4.0) gm/dl Albumin/Globulin Ratio (0.9-2) TSH (0.300-4.500) uIu/ml Urine Color Urine Appearance (Clear) Urine pH (4.5-7.5) Ur Specific [place] (1.000-1.030) Urine Protein (Negative) Urine Glucose (UA) (Negative) Urine Ketones (Negative) Urine Blood (Negative) Urine Nitrite (Negative) Urine Bilirubin (Negative) Urine Urobilinogen (Negative) Ur Leukocyte Esterase (Negative) Urine Comment Adenovirus (PCR) (NotDetected) B. pertussis DNA (PCR) (NotDetected) B.parapertussis DNA PCR (NotDetected) C. pneumoniae DNA (PCR) (NotDetected) Coronavirus OC43 (PCR) (NotDetected) Coronavirus HKU1 (PCR) (NotDetected) Coronavirus 229E (PCR) (NotDetected) SARS-CoV-2 (PCR) (NotDetected) Coronavirus NL63 (PCR) (NotDetected) Hepatitis C Ab Screen (Negative) Human Metapneumovir PCR (NotDetected) Influenza Type A (PCR) (NotDetected) Influenza Type B (PCR) (NotDetected) M. pneumoniae (PCR) (NotDetected) Parainfluenza 1 (PCR) (NotDetected) Parainfluenza 2 (PCR) (NotDetected) Parainfluenza 3 (PCR) (NotDetected) Parainfluenza 4 (PCR) (NotDetected) RSV (PCR) (NotDetected) Entero/Rhino (PCR) (NotDetected) MDM Narrative Patient is a 75-year-old male who presents to the emergency department with complaints of generalized pain. Patient states that he has been feeling "off" for some time and when he was at work today his coworker thought that he did not look well and brought him to the emergency department to be evaluated. Patient is alert and oriented x 4. Patient states that when he is getting out of the vehicle to come into the emergency department that he slid onto the ground when getting out of his car. Patient denies any has had and denies any loss of consciousness. Patient was evaluated by myself and findings were noted in the physical exam above. Patient was ordered IV placement, lab work, CT of the cervical spine, CT of the head, a liter of normal saline, urinalysis, [employer] upper respiratory panel, and a chest x-ray. Patient's lab work resulted with mildly elevated white blood cell count of 11.85. Patient was mildly anemic with a hemoglobin of 13.7 hematocrit of 41.9. Patient had no significant electrolyte imbalance noted. Patient does appear to have an TYLOR with a BUN of 36 and creatinine of 1.8. These numbers are much higher than patient's baseline. Patient had a troponin level that was within normal range and resulted at 12.4. Patient also had an upper respiratory viral panel that was negative for any findings. Patient also had a urinalysis that was completed and showed no significant indication of infection. Patient also had a chest x-ray that was completed and interpreted by radiology to show no indication of active disease in the chest. The patient does appear to have a reddened and edematous right calf. The patient reports that he has intermittent discomfort in his right lower extremity. Patient notes that he does have issues with circulation in his legs at baseline but the patient feels that his right calf may be more reddened and edematous than it typically is at baseline. Patient presents consistent with cellulitis. The patient's elevated white blood cell count is also indicative of that possibly being related to cellulitis. I discussed with the patient that it would be advisable for him to stay in the hospital for further evaluation and management due to his TYLOR and elevated white blood cell count that is likely related to a cellulitic presentation of his right calf. Patient verbalized understanding and was agreeable to the plan for admission to the hospital for further evaluation and management. [facility] this patient. He gave them a full report of the patient's chief complaint, current status and the results of his imaging and lab work. They verbalized understanding and were agreeable to accept the patient for admission under their service. Please refer to the [facility] hospitalist group's documentation for further evaluation and management of this patient. Attending Attestation: I Ted Sin MD I have reviewed the advanced practitioner's documentation and agree with the plan of care. Maybe some cellulitis and TYLOR but given not at baseline brought in for further evaluation. I accept the responsibility for the associated risk of managing the patient. I performed a substantive portion of the visit including involvement in all aspects of medical decision making. Impression Neck pain, TYLOR (acute kidney injury), Lower extremity edema Discharge Plan Visit Data Chief Complaint: Pain (Generalized) Stated Complaint: NECK PAIN, PAIN ALL OVER ED Provider: Ted Sin ED Midlevel Provider: Marcy Terrell Discharge Problem: Neck pain, TYLOR (acute kidney injury), Lower extremity edema Patient Disposition: Admitted As Inpatient Condition: Fair Discharge Instructions Interventions: ED Discharge Assessment Last Done: 06/14/25 16:21 ED DC CONDITION Conditon at Discharge Condition at Discharge: Fair
[2025-06-14 09:38] LABS: Hematocrit (blood only) 41.9 % (42.0-52.0); Hemoglobin 13.7 g/dL (14.0-18.0); Immature Granulocytes # (auto) 0.03 K/uL (0.01-0.20); Immature Granulocytes % (auto) 0.3 %; Mean Corpuscular Hemoglobin 29.1 pg (25.0-34.0); Mean Corpuscular Volume 89.0 fL (80.0-100.0); Platelet Count 180 K/uL (130-400); RDW Standard Deviation 42.9 fL (36.4-46.3); Red Blood Count 4.71 M/uL (4.70-6.10); White Blood Count 11.85 K/ul (4.8-10.8)
[2025-06-14] MEDS: SODIUM CHLORIDE 0.9% 1,000 ML IV STA (09:48)
[2025-06-14 09:56] LABS: Alanine Aminotransferase 10 U/L (7-52); Albumin Globulin Ratio 1.4 (0.9-2); Albumin Level 4.0 gm/dl (3.4-5.0); Bilirubin,Total 1.0 mg/dl (0.2-1.0); Blood Urea Nitrogen 36 mg/dl (6-23); Chloride 103 mmol/L (98-107); Globulin 2.8 gm/dl (2.5-4.0); Potassium 4.2 mmol/L (3.5-5.1); Sodium 138 mmol/L (136-145); Total Protein 6.8 gm/dl (6.0-8.3)
--- NOTE | 2025-06-14 09:57 | CT Scan Report ---
CT SCAN OF THE CERVICAL SPINE CLINICAL HISTORY: Fall. COMPARISON STUDY: None. TECHNIQUE: CT scan of the cervical spine is performed from the skull base to the upper thoracic spine . Images are reviewed in the axial, sagittal, and coronal planes. IV contrast was not administered fo r this examination. A dose lowering technique was utilized adhering to the principles of ALARA. CT DOSE: 1223.06 mGy.cm FINDINGS: Skeletal structures: There is reversal of the cervical lordosis. There is moderate multilevel disc sp stefany narrowing, endplate osteophytosis and facet arthrosis within the cervical spine. There is no evid ence of fracture or subluxation involving the cervical spine. Vertebral body height and alignment are maintained. The odontoid process and lateral masses are intact. The atlantoaxial articulation is pr eserved. The spinous processes appear intact. Soft tissues: The prevertebral and paraspinous soft tissues are within normal limits. Calvarium: The visualized calvarium at the skull base appears intact. Brain parenchyma: Partially visualized brain parenchyma at the skull base is within normal limits. Lung apices: Clear as visualized. IMPRESSION: No acute cervical spine fracture or subluxation. ACT 112: Negative or not required by law. Electronically signed by: Song Salmeron M.D. 06/14/2025 9:54 AM
[2025-06-14 10:05] LABS: INR 1.1 (0.9-1.1); Partial Thromboplastin Time 24 Seconds (21-31); Prothrombin Time 11.7 Seconds (9.0-12.0)
--- NOTE | 2025-06-14 10:05 | CT Scan Report ---
CT SCAN OF THE BRAIN WITHOUT IV CONTRAST CLINICAL HISTORY: Fall. Neck pain COMPARISON STUDY: CT of the brain dated 09/08/2023 TECHNIQUE: Unenhanced CT scan of the brain is performed from the vertex to the skull base. Images are reviewed in the axial, sagittal, coronal planes. A dose lowering technique was utilized adhering to the principles of ALARA. FINDINGS: Brain parenchyma: There is age-related involutional change noting mild subcortical and periventricula r microangiopathic disease. There is no hemorrhage, mass effect, or evidence of acute territorial isc hemia by CT criteria. Dubois-white matter differentiation is preserved. Mineralization is noted in the basal ganglia. No extra-axial fluid collection is seen. Ventricles, sulci, cisterns: Prominent secondary to involutional change. Intracranial vasculature: There is atherosclerotic calcification of the cavernous carotid and vertebr al arteries. Calvarium: Unremarkable. Sinuses and mastoids: There is trace mucosal thickening in the right maxillary antrum. The paranasal sinuses are otherwise clear. The mastoid air cells are well pneumatized. Orbits: The bony orbits are grossly intact. There are bilateral ocular lens implants. IMPRESSION: There is no hemorrhage, mass effect, or evidence of acute territorial ischemia by CT saji noel. ACT 112: Negative or not required by law. Electronically signed by: Skip Mario M.D. 06/14/2025 10:04 AM
[2025-06-14 10:06] LABS: Alkaline Phosphatase 81 U/L (34-104); Anion Gap 10 (3-11); Calcium 9.1 mg/dl (8.6-10.3); Carbon Dioxide 25 mmol/L (21-32); Glucose 282 mg/dl (70-99(Fasting))
--- NOTE | 2025-06-14 10:37 | XRay Report ---
SINGLE VIEW CHEST CLINICAL HISTORY: Intermittent cough FINDINGS: An AP, portable, upright chest radiograph is compared to study dated 09/08/2023. The cardiom ediastinal silhouette is unremarkable noting atherosclerotic calcification of the thoracic aorta. Chr onic interstitial thickening is similar to previous. There is chronic elevation of the right hemidiap hragm and bibasilar atelectasis. No airspace consolidation or large pleural effusion is identified. N o pneumothorax is seen. The skeletal structures are osteopenic. The bony thorax is grossly intact. IMPRESSION: No active disease in the chest. ACT 112: Negative or not required by law. Electronically signed by: Skip Mario M.D. 06/14/2025 10:35 AM
[2025-06-14 12:00] LABS: Chlamydia pneumoniae PCR Not Detected (NotDetected); Coronavirus 229E PCR Not Detected (NotDetected); Coronavirus CoV-2 (COVID19)PCR Not Detected (NotDetected); Coronavirus HKU1 PCR Not Detected (NotDetected); Coronavirus NL63 PCR Not Detected (NotDetected); Coronavirus OC43PCR Not Detected (NotDetected); Human Metapneumovirus PCR Not Detected (NotDetected); Parainfluenza Virus 1 PCR Not Detected (NotDetected); Parainfluenza Virus 2 PCR Not Detected (NotDetected); Parainfluenza Virus 3 PCR Not Detected (NotDetected); Parainfluenza Virus 4 PCR Not Detected (NotDetected); Respiratory Syncytial VirusPCR Not Detected (NotDetected); Rhinovirus/Enterovirus PCR Not Detected (NotDetected)
[2025-06-14 12:08] LABS: Appearance Urine Clear (Clear); Glucose Urine UA 3+ (Negative)
[2025-06-14] MEDS: SODIUM CHLORIDE 0.9% 500 ML IV ONE (13:10)
[2025-06-14] MEDS: SODIUM CHLORIDE 0.9% 1,000 ML IV ONE (13:10)
--- NOTE | 2025-06-14 13:46 | History & Physical Report ---
Date of Service June 14, 2025 Assessment & Plan (1) Tachycardia: (2) Hypotension: (3) Neck pain: (4) TYLOR (acute kidney injury): (5) Fall: (6) Venous stasis dermatitis: (7) HTN (hypertension): (8) HLD (hyperlipidemia): (9) DM type 2 (diabetes mellitus, type 2): (10) BPH with obstruction/lower urinary tract symptoms: Plan 75yo male with history of BPH, HTN, T2DM, hyperlipidemia, and B12 deficiency presents after developing posterior neck pain/stiffness this morning while at work. This improved quickly after ER presentation, and during his ER work-up was noted to have tachycardia with hypotension. #tachycardia with hypotension - -shortly after arrival it appears he developed an accelerated junctional rhythm -no evidence of AVNRT, a.fib or a.flutter -during his ER course his arrhythmia broke and her returned to NSR with HRs in the 70s/80s -while in the abnormal rhythm he was hypotensive -hypotension also resolved after the arrhythmia resolved -etiology for the apparent accelerated junctional rhythm is uncertain -troponins thus far negative -TSH is normal -K and mag are wnl -will obtain echo and place on telemetry -provide isotonic fluids -consider cardiology consultation #TYLOR - -presenting creatinine 1.8 -prior creatinine 1.3 in October 2024 -u/a is bland - no blood, no protein, no casts -will provide isotonic fluid overnight then repeat BMP am -if Cr continues to remain high consider renal imaging - r/o obstruction, etc. #neck pain - -suspect 2nd to DJD of cervical spine -no evidence that his pain is due to a meningitic process, etc. -pain largely resolved by the time of my assessment -fortunately no cervical spine fractures despite his fall in the ER parking lot #fall - -slipped/fell in the ER parking lot -fortunately no major injuries or fractures from such -obtain PT/OT evals while here -check a B12 level given his previous h/o B12 def #venous stasis dermatitis; ?early RLE cellulitis? - -?early RLE cellulitis -- but my suspicion for such is low -most of the RLE findings appear chronic (see photo) -there is no warmth, tenderness or signs of inflammation -will give 1 dose of rocephin and then re-eval tomorrow to determine if ongoing abx are necessary #BPH - -he is not on meds for such at home -if creatinine remains elevated following IV fluids then check renal u/s #HTN - -with TYLOR and hypotension will HOLD lasix and olmesartan #uncontrolled T2DM - -check a1c in am -hold metformin -hold empagliflozin -check BSGs ac/hs -novolog SSI #hyperlipidemia - -he is not on meds for such #h/o B12 deficiency - -check vit B12 level in am #DVT proph - -check doppler of RLE as the RLE is larger than LLE -- r/o DVT -if no DVT and he stays beyond tomorrow will add chemical DVT proph pt's sister updated throughout the admission process History of Present Illness Chief Complaint: neck pain, fall in parking lot Primary Care Provider: Magan Russ, DO 75yo male with history of BPH, HTN, T2DM, hyperlipidemia, and B12 deficiency presents after developing posterior neck pain/stiffness this morning while at work. He works at an [employer] company near [place] and while at work the pain started. He ultimately asked a co-worker to bring him to the ER for evaluation. Denies any injury to his neck. He has had neck pain in the past but today's episode was much worse than typical. By the time of my admission assessment his pain was much better -- essentially resolved. Denied any frontal headache. By report while walking into the ER he slipped and fell. He was using his cane as he typically does but the cane slipped and he lost his footing. He did not pass out. He did not have prodromal dizziness. He does admit to feeling a little dizzy in the ER with standing, however. Denies any recent fevers, chills, loss of appetite, weight loss, URI symptoms, chest pain, cough, dyspnea, or abdominal pain. He mentions "tailbone pain" but this is chronic. He also has chronic voiding issues but none have changed recently. Finally, he does have chronic skin changes of both shins - worse on the right - but these, too, are chronic. Denies any pain, tenderness or warmth of the shins. During my admission assessment he was tachycardic on the heart monitor at ~120 BPM. EKG appears to show an accelerated junctional rhythm. Later in the ER stay this rhythm broke and HRs returned to the 70s/80s. Allergies Allergy/AdvReac Type Severity Reaction Status Date / Time No Known Allergies Allergy Verified 06/14/25 10:33 Home Medications Medication Instructions Recorded Confirmed Type blood-glucose meter (OneTouch #1 ea 09/12/23 03/27/25 Rx Ultra2 Meter) furosemide 40 mg tablet 40 mg PO QAM #90 tabs 06/30/24 06/14/25 Rx metformin 750 mg tablet,extended 750 mg PO BID 90 days #180 tabs 06/30/24 06/14/25 Rx release 24 hr olmesartan 20 mg tablet 20 mg PO DAILY #90 tabs 06/30/24 06/14/25 Rx empagliflozin 25 mg tablet 25 mg PO DAILY 90 days #90 tabs 10/27/24 06/14/25 Rx glipizide 10 mg tablet, extended 10 mg PO DAILY #90 tabs 11/11/24 06/14/25 Rx release 24 hr lancets 33 gauge #100 ea 11/22/24 03/27/25 Rx blood sugar diagnostic (OneTouch #100 ea 11/23/24 03/27/25 Rx Ultra Test strips) Past Med/Surg History Problem List (Updated 06/15/25 @ 04:20 by Gaurang Goff MD) TYLOR (acute kidney injury) Neck pain Venous stasis dermatitis Hypotension Fall Tachycardia Onychomycosis Tinea pedis Lower extremity edema Fall from chair (Acute) Abdominal pain (Acute) Loss of sensation (Chronic) Irritable bowel syndrome (Acute) Prostate cancer screening encounter, options and risks discussed (Acute) Medical History (Updated 06/15/25 @ 04:20 by Gaurang Goff MD) BPH with obstruction/lower urinary tract symptoms Renal cyst, acquired Vitamin B12 deficiency Vitamin D deficiency Pancreatitis IBS (irritable bowel syndrome) DM type 2 (diabetes mellitus, type 2) HLD (hyperlipidemia) HTN (hypertension) Acute dehydration Encounter for pre-operative examination Sepsis Coronavirus infection BPH (benign prostatic hyperplasia) Chronic osteoarthritis Gastroesophageal reflux disease Obesity, Class I, BMI 30-34.9 Diabetic peripheral neuropathy Surgical History History of cataract surgery History of tonsillectomy History of colonoscopy Hx of straightening of nasal septum Family History (Updated 06/15/25 @ 04:22 by Gaurang Goff MD) Father , age 52 Myocardial infarction Mother , age 87; bloot clot near the liver?? Hypertension Peptic ulcer disease VTE (venous thromboembolism) COPD (chronic obstructive pulmonary disease) Other No family history of adverse response to anesthesia Denies family history of Ovarian cancer Prostate cancer Breast cancer Colorectal cancer Social History (Updated 06/15/25 @ 04:22 by Gaurang Goff MD) Smoking Status: Never smoker Second Hand Exposure: No; Do You Dip or Chew Tobacco: No; Hx Alcohol Use: No Hx Substance Use: No Preferred Language: Gibralt[place] Communication Ability: Effective Visual Impairment: No Limitations Hearing Ability: Normal Research Affiliate Required: No Beliefs That Will Affect Care: None marital status: Single Current Living Situation: Alone current occupational status: employed 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 How many Children do You have: 0 Feels Safe at Home: Yes Diet: lactose free and regular caffeine: Yes Dental Care, Regularly: No Physical Activity Frequency: Does not Exercise Seatbelt Use: always Assistive Devices: Cane and Glasses Review of Systems 2 Review of Systems: gen - no fevers or chills; has been eating normally; no weight changes eyes - no ocular symptoms HENT - no URI symptoms CV - no chest pain, no palpitations pulm - no dyspnea, no SÁNCHEZ, no cough GI - no abd pain or N/V/diarrhea; no blood in stool - chronic LUTs (no change from baseline) musculo - neck pain - acute/today only; low back pain - chronic; no other joints bothering him; no myalgias neuro - no headache, no paresthesias or focal motor weakness skin - chronic skin changes b/l shins endo - chronic diabetes with high sugars Physical Exam 2 Physical Exam: gen - lying in bed comfortably, NAD, nontoxic eyes - PERRL HENT - MMM, no lesions, tongue midline; poor dentition neck - ROM is wnl; no meningismus; no nucchal rigidity; no JVD/goiter/lymph nodes heart - tachycardic, s1 s2, no murmur lungs - CTA b/l abd - soft NT ND BS+; no HSM ext - chronic stasis changes b/l shins, worse on right; right lower leg is larger than the left lower leg; pulses b/l feet 2+ skin - severe stasis changes b/l shins; no warmth, no redness, no crepitus, no tenderness right freedman (see photo); chronic xerosis and skin scaling of both shins; bruise and abrasion left shoulder and left upper back neuro - strength 5/5 x 4 exts; DTRs 2+ b/l upper & lower exts; CN 3-12 intact psych - a/o x 3 Results & Data Results & Data Vital Signs (Past 12 Hours) Vital Signs Temp Pulse Pulse Pulse Resp BP Pulse Ox 06/14/25 12:51 115 H 19 95/71 L 98 06/14/25 12:05 113 H 20 113/60 96 06/14/25 11:12 120 H 20 94 06/14/25 11:10 120 H 20 94/71 L 97 06/14/25 09:15 126 H 22 89/57 L 94 06/14/25 08:50 124 H 06/14/25 08:27 36.4 C L 63 20 96 O2 Del Method 06/14/25 12:51 Room Air 06/14/25 12:05 Room Air 06/14/25 11:12 Room Air 06/14/25 11:10 06/14/25 09:15 Room Air 06/14/25 08:50 06/14/25 08:27 Room Air Laboratory Results Laboratory Results - last 24 hr 06/14/25 06/14/25 06/14/25 09:21 10:53 11:59 WBC 11.85 H RBC 4.71 Hgb 13.7 L Hct 41.9 L MCV 89.0 MCH 29.1 MCHC 32.7 RDW Std Deviation 42.9 RDW Coeff of Duyen 13.2 Plt Count 180 MPV 10.4 Immature Gran % (Auto) 0.3 Neut % (Auto) 83.8 Lymph % (Auto) 6.8 Loving % (Auto) 8.3 Eos % (Auto) 0.4 Baso % (Auto) 0.4 Neut # (Auto) 9.93 H Lymph # (Auto) 0.81 L Loving # (Auto) 0.98 H Eos # (Auto) 0.05 Baso # (Auto) 0.05 Immature Gran # (Auto) 0.03 PT 11.7 INR 1.1 APTT 24 PTT Ratio 0.9 Sodium 138 Potassium 4.2 Chloride 103 Carbon Dioxide 25 Anion Gap 10 BUN 36 H Creatinine 1.80 H Est Cr Clr Drug Dosing Not Reportable eGFR 38.29 BUN/Creatinine Ratio 20.0 Glucose 282 H Calcium 9.1 Total Bilirubin 1.0 AST 15 ALT 10 Alkaline Phosphatase 81 Troponin I High Sens 12.4 Total Protein 6.8 Albumin 4.0 Globulin 2.8 Albumin/Globulin Ratio 1.4 Urine Color Yellow Urine Appearance Clear Urine pH 5.0 Ur Specific [place] 1.015 Urine Protein Negative Urine Glucose (UA) 3+ H Urine Ketones Negative Urine Blood Negative Urine Nitrite Negative Urine Bilirubin Negative Urine Urobilinogen Negative Ur Leukocyte Esterase Negative Urine Comment Adenovirus (PCR) Not Detected B. pertussis DNA (PCR) Not Detected B.parapertussis DNA PCR Not Detected C. pneumoniae DNA (PCR) Not Detected Coronavirus OC43 (PCR) Not Detected Coronavirus HKU1 (PCR) Not Detected Coronavirus 229E (PCR) Not Detected SARS-CoV-2 (PCR) Not Detected Coronavirus NL63 (PCR) Not Detected Human Metapneumovir PCR Not Detected Influenza Type A (PCR) Not Detected Influenza Type B (PCR) Not Detected M. pneumoniae (PCR) Not Detected Parainfluenza 1 (PCR) Not Detected Parainfluenza 2 (PCR) Not Detected Parainfluenza 3 (PCR) Not Detected Parainfluenza 4 (PCR) Not Detected RSV (PCR) Not Detected Entero/Rhino (PCR) Not Detected Diagnostic Findings Cervical Spine CT 06/14/25 09:09 CT SCAN OF THE CERVICAL SPINE CLINICAL HISTORY: Fall. COMPARISON STUDY: None. TECHNIQUE: CT scan of the cervical spine is performed from the skull base to the upper thoracic spine. Images are reviewed in the axial, sagittal, and coronal planes. IV contrast was not administered for this examination. A dose lowering technique was utilized adhering to the principles of ALARA. CT DOSE: 1223.06 mGy.cm FINDINGS: Skeletal structures: There is reversal of the cervical lordosis. There is moderate multilevel disc space narrowing, endplate osteophytosis and facet arthrosis within the cervical spine. There is no evidence of fracture or subluxation involving the cervical spine. Vertebral body height and alignment are maintained. The odontoid process and lateral masses are intact. The atlantoaxial articulation is preserved. The spinous processes appear intact. Soft tissues: The prevertebral and paraspinous soft tissues are within normal limits. Calvarium: The visualized calvarium at the skull base appears intact. Brain parenchyma: Partially visualized brain parenchyma at the skull base is within normal limits. Lung apices: Clear as visualized. IMPRESSION: No acute cervical spine fracture or subluxation. ACT 112: Negative or not required by law. Electronically signed by: Song Salmeron M.D. 06/14/2025 9:[address] 06/14/25 09:09 CT SCAN OF THE BRAIN WITHOUT IV CONTRAST CLINICAL HISTORY: Fall. Neck pain COMPARISON STUDY: CT of the brain dated 09/08/2023 TECHNIQUE: Unenhanced CT scan of the brain is performed from the vertex to the skull base. Images are reviewed in the axial, sagittal, coronal planes. A dose lowering technique was utilized adhering to the principles of ALARA. FINDINGS: Brain parenchyma: There is age-related involutional change noting mild subcortical and periventricular microangiopathic disease. There is no hemorrhage, mass effect, or evidence of acute territorial ischemia by CT criteria. Dubois-white matter differentiation is preserved. Mineralization is noted in the basal ganglia. No extra-axial fluid collection is seen. Ventricles, sulci, cisterns: Prominent secondary to involutional change. Intracranial vasculature: There is atherosclerotic calcification of the cavernous carotid and vertebral arteries. Calvarium: Unremarkable. Sinuses and mastoids: There is trace mucosal thickening in the right maxillary antrum. The paranasal sinuses are otherwise clear. The mastoid air cells are well pneumatized. Orbits: The bony orbits are grossly intact. There are bilateral ocular lens implants. IMPRESSION: There is no hemorrhage, mass effect, or evidence of acute territorial ischemia by CT criteria. ACT 112: Negative or not required by law. Electronically signed by: Skip Mario M.D. 06/14/2025 10:04 AM Chest X-Ray 06/14/25 09:44 SINGLE VIEW CHEST CLINICAL HISTORY: Intermittent cough FINDINGS: An AP, portable, upright chest radiograph is compared to study dated 09/08/2023. The cardiomediastinal silhouette is unremarkable noting atherosclerotic calcification of the thoracic aorta. Chronic interstitial thickening is similar to previous. There is chronic elevation of the right hemidiaphragm and bibasilar atelectasis. No airspace consolidation or large pleural effusion is identified. No pneumothorax is seen. The skeletal structures are osteopenic. The bony thorax is grossly intact. IMPRESSION: No active disease in the chest. ACT 112: Negative or not required by law. Electronically signed by: Skip Mario M.D. 06/14/2025 10:35 AM ECG Additional Comments: EKG - my reading - tachycardia, short IN interval with unusual P morphology - accelerated junctional rhythm? no ST changes; LVH by voltage criteria Code Status & VTE Plan Code Status full code PG Care Time/CCT Total # of Minutes Spent Total Time Spent with Patient: Total time spent is greater than 50% in coordination of care (as documented) at patient's floor/unit and/or counseling patient: Coding Level of Care Code 63542 INT INP/OBS CARE 3/75MIN Diagnoses Tachycardia R00.0 Hypotension I95.9 Neck pain M54.2 TYLOR (acute kidney injury) N17.9 Fall W19.XXXA Venous stasis dermatitis I87.2 HTN (hypertension) I10 HLD (hyperlipidemia) E78.5 Type 2 diabetes mellitus with diabetic polyneuropathy, without long-term current use of insulin E11.42 Diabetes mellitus complication detail: with polyneuropathy Diabetes mellitus complication status: with neurologic complications Diabetes 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
[2025-06-14 14:16] LABS: Magnesium 2.3 mg/dl (1.7-2.4)
[2025-06-14] MEDS: cefTRIAXone SODIUM 2,000 MG/50 ML BAG IV STA (14:27)
[2025-06-14 14:39] LABS: Thyroid Stimulating Hormone 3.245 uIu/ml (0.300-4.500)
--- NOTE | 2025-06-14 16:12 | Ultrasound Report ---
RIGHT LOWER EXTREMITY VENOUS DOPPLER CLINICAL HISTORY: RLE is larger than LLE, edema COMPARISON STUDY: Right lower extremity venous Doppler ultrasound February 06, 2011. TECHNIQUE: Sonography of the deep venous system of the right lower extremity was performed. Compress ion and augmentation were evaluated. FINDINGS: The right common femoral, superficial femoral and popliteal veins were compressible. Augme ntation was normal. Flow was shown within the deep calf vessels although calf vessels were partially obscured. IMPRESSION: Suboptimal evaluation of the right calf vessels but no evidence of deep venous thrombus w ithin the right lower extremity. ACT 112: Negative or not required by law. Electronically signed by: Song Salmeron M.D. 06/14/2025 4:10 PM
--- NOTE | 2025-06-14 17:12 | XCELERA ---
[id number]
[2025-06-14] MEDS ORDERED: ONDANSETRON INJ 2 MG/ML 2 ML VIAL IV PRN (17:37)
[2025-06-14] MEDS ORDERED: MELATONIN 3 MG TAB PO PRN (17:37)
[2025-06-14] MEDS ORDERED: ACETAMINOPHEN 325 MG TAB PO PRN (17:37)
[2025-06-14] MEDS: SODIUM CHLORIDE 0.9% 1,000 ML IV SCH (17:51)
[2025-06-14] MEDS: INSULIN ASPART PER UNIT CHARGE SC SCH (19:05)
[2025-06-15 06:27] LABS: Hematocrit (blood only) 37.8 % (42.0-52.0); Hemoglobin 12.3 g/dL (14.0-18.0); Immature Granulocytes # (auto) 0.02 K/uL (0.01-0.20); Immature Granulocytes % (auto) 0.3 %; Mean Corpuscular Hemoglobin 29.7 pg (25.0-34.0); Mean Corpuscular Volume 91.3 fL (80.0-100.0); Platelet Count 145 K/uL (130-400); RDW Standard Deviation 43.9 fL (36.4-46.3); Red Blood Count 4.14 M/uL (4.70-6.10); White Blood Count 6.55 K/ul (4.8-10.8)
[2025-06-15 06:34] LABS: Hemoglobin A1C 10.4 % (4.5-5.6)
[2025-06-15 06:44] LABS: Anion Gap 6.0 (3-11); Blood Urea Nitrogen 27.0 mg/dl (6-23); Calcium 8.6 mg/dl (8.6-10.3); Carbon Dioxide 29.0 mmol/L (21-32); Chloride 110.0 mmol/L (98-107); Creatinine Clr Calc Pharmacy 62.3 ml/min; Glucose 98.0 mg/dl (70-99(Fasting)); Potassium 4.6 mmol/L (3.5-5.1); Sodium 145.0 mmol/L (136-145)
[2025-06-15] MEDS: CYANOCOBALAMIN 1000 MCG/ML VIAL IM SCH (11:54)
--- NOTE | 2025-06-15 20:56 | Hospitalist Progress Note ---
Date of Service June 15, 2025 Assessment & Plan (1) Tachycardia: (2) Hypotension: (3) Neck pain: (4) TYLOR (acute kidney injury): (5) Fall: (6) Venous stasis dermatitis: (7) HTN (hypertension): (8) HLD (hyperlipidemia): (9) DM type 2 (diabetes mellitus, type 2): (10) BPH with obstruction/lower urinary tract symptoms: (11) Vitamin B12 deficiency: Plan 75yo male with history of BPH, HTN, T2DM, hyperlipidemia, and B12 deficiency presents after developing posterior neck pain/stiffness this morning while at work. This improved quickly after ER presentation, and during his ER work-up was noted to have tachycardia with hypotension. #tachycardia with hypotension - -shortly after arrival it appears he developed an accelerated junctional rhythm -no evidence of a.fib or a.flutter -during his ER course his arrhythmia broke and he returned to NSR with HRs in the 70s/80s -while in the abnormal rhythm he was hypotensive -hypotension also resolved after the arrhythmia resolved -etiology for the apparent accelerated junctional rhythm -- uncertain -troponins negative -TSH normal -K and mag wnl -echo with preserved EF and normal LV wall motion -did have a few runs overnight of tachycardia - possibly the same rhythm - but no apparent symptoms -could consider beta sarah in rena of his ARB -consider 30day monitor upon discharge home and then have f/u with cardiology #TYLOR - -presenting creatinine 1.8 -prior creatinine 1.3 in October 2024 -u/a bland - no blood, no protein, no casts -s/p IV fluids overnight with resolution of TYLOR -suspect pre-renal from chronic lasix use in setting of ARB -would use lasix in future PRN rather than scheduled -cont to hold ARB #neck pain - resolved, has not recurred - -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 -fortunately no cervical spine fractures despite his fall in the ER parking lot #fall - -slipped/fell in the ER parking lot -fortunately no major injuries or fractures from such -PT/OT evals while here -B12 level is low --- replace IM while here, then PO supplementation upon d/c -consider empiric B1 supplementation x 1 month as they often co-exist #venous stasis dermatitis; ?early RLE cellulitis? - -?early RLE cellulitis -- but my suspicion for such was low -most of the RLE findings appear chronic (see photo from admission and today's photo) -there is no warmth, tenderness or signs of inflammation -would not give any further abx #BPH - -he is not on meds for such at home - #HTN - -with TYLOR HOLD lasix and olmesartan #uncontrolled T2DM - -a1c 10.4% -hold metformin -hold empagliflozin -BSGs remain excellent despite holding his meds -- suspect dietary noncompliance, etc. -novolog SSI #hyperlipidemia - -he is not on meds for such #h/o B12 deficiency - -again low level today - replace IM while here then PO at d/c #DVT proph - -checked doppler of RLE --> no DVT -if he stays beyond tomorrow will add chemical DVT proph observe again overnight on telemetry d/c tomorrow ? Admission and Anticipated Discharge Date Admission Date: June 14, 2025 Subjective pt feeling well today no complaints denies any dizziness or lightheadedness no headache no neck pain eating fine tele - occasional runs of tachycardia - SVT? accelerated junctional? PAT? Review of Systems 2 Review of Systems: gen - no fevers or chills cv - no cp, no orthopnea, no edema pulm - no dyspnea or SÁNCHEZ Physical Exam 2 Physical Exam: gen - lying in bed comfortably, NAD, nontoxic HENT - MMM neck - no JVD heart - RRR, s1 s2, no murmur lungs - CTA b/l abd - soft NT ND BS+; no HSM ext - chronic stasis changes b/l shins, worse on right; right lower leg is larger than the left lower leg; pulses b/l feet 2+ skin - severe stasis changes b/l shins; still no warmth, no redness, no crepitus, no tenderness right freedman; chronic xerosis and skin scaling of both shins psych - a/o x 3 updated photo from today's visit of RLE: Results & Data Results & Data Vital Signs (Past 12 Hours) Vital Signs Temp Pulse Pulse Resp BP Pulse Ox O2 Del Method 06/15/25 20:15 Room Air 06/15/25 19:42 36.4 C L 73 19 137/69 98 Room Air 06/15/25 16:08 36.2 C L 63 18 109/67 98 Room Air 06/15/25 15:00 64 06/15/25 11:31 37 C 80 14 111/65 96 Room Air 06/15/25 09:00 Room Air Laboratory Results Laboratory Results - last 48 hr 06/14/25 06/14/25 06/14/25 09:24 09:24 09:26 WBC RBC Hgb Hct MCV MCH MCHC RDW Std Deviation RDW Coeff of Duyen Plt Count MPV Immature Gran % (Auto) Neut % (Auto) Lymph % (Auto) Wilcox % (Auto) Eos % (Auto) Baso % (Auto) Neut # (Auto) Lymph # (Auto) Wilcox # (Auto) Eos # (Auto) Baso # (Auto) Immature Gran # (Auto) ESR 20 Sodium Potassium Chloride Carbon Dioxide Anion Gap BUN Creatinine Est Cr Clr Drug Dosing eGFR BUN/Creatinine Ratio Glucose POC Glucose Estimat Average Glucose Hemoglobin A1c Lactate Calcium Magnesium Cancelled 2.3 Troponin I High Sens C-Reactive Protein < 0.50 Vitamin B12 Folate TSH 3.245 Urine Color Urine Appearance Urine pH Ur Specific [place] Urine Protein Urine Glucose (UA) Urine Ketones Urine Blood Urine Nitrite Urine Bilirubin Urine Urobilinogen Ur Leukocyte Esterase Urine Comment Adenovirus (PCR) B. pertussis DNA (PCR) B.parapertussis DNA PCR C. pneumoniae DNA (PCR) Coronavirus OC43 (PCR) Coronavirus HKU1 (PCR) Coronavirus 229E (PCR) SARS-CoV-2 (PCR) Coronavirus NL63 (PCR) Hepatitis C Ab Screen Negative Human Metapneumovir PCR Influenza Type A (PCR) Influenza Type B (PCR) M. pneumoniae (PCR) Parainfluenza 1 (PCR) Parainfluenza 2 (PCR) Parainfluenza 3 (PCR) Parainfluenza 4 (PCR) RSV (PCR) Entero/Rhino (PCR) 06/14/25 06/14/25 06/14/25 10:53 11:59 14:17 WBC RBC Hgb Hct MCV MCH MCHC RDW Std Deviation RDW Coeff of Duyen Plt Count MPV Immature Gran % (Auto) Neut % (Auto) Lymph % (Auto) Wilcox % (Auto) Eos % (Auto) Baso % (Auto) Neut # (Auto) Lymph # (Auto) Wilcox # (Auto) Eos # (Auto) Baso # (Auto) Immature Gran # (Auto) ESR Sodium Potassium Chloride Carbon Dioxide Anion Gap BUN Creatinine Est Cr Clr Drug Dosing eGFR BUN/Creatinine Ratio Glucose POC Glucose Estimat Average Glucose Hemoglobin A1c Lactate 1.2 Calcium Magnesium Troponin I High Sens C-Reactive Protein Vitamin B12 Folate TSH Urine Color Yellow Urine Appearance Clear Urine pH 5.0 Ur Specific [place] 1.015 Urine Protein Negative Urine Glucose (UA) 3+ H Urine Ketones Negative Urine Blood Negative Urine Nitrite Negative Urine Bilirubin Negative Urine Urobilinogen Negative Ur Leukocyte Esterase Negative Urine Comment Adenovirus (PCR) Not Detected B. pertussis DNA (PCR) Not Detected B.parapertussis DNA PCR Not Detected C. pneumoniae DNA (PCR) Not Detected Coronavirus OC43 (PCR) Not Detected Coronavirus HKU1 (PCR) Not Detected Coronavirus 229E (PCR) Not Detected SARS-CoV-2 (PCR) Not Detected Coronavirus NL63 (PCR) Not Detected Hepatitis C Ab Screen Human Metapneumovir PCR Not Detected Influenza Type A (PCR) Not Detected Influenza Type B (PCR) Not Detected M. pneumoniae (PCR) Not Detected Parainfluenza 1 (PCR) Not Detected Parainfluenza 2 (PCR) Not Detected Parainfluenza 3 (PCR) Not Detected Parainfluenza 4 (PCR) Not Detected RSV (PCR) Not Detected Entero/Rhino (PCR) Not Detected 06/14/25 06/14/25 06/14/25 14:19 14:34 16:51 WBC RBC Hgb Hct MCV MCH MCHC RDW Std Deviation RDW Coeff of Duyen Plt Count MPV Immature Gran % (Auto) Neut % (Auto) Lymph % (Auto) Wilcox % (Auto) Eos % (Auto) Baso % (Auto) Neut # (Auto) Lymph # (Auto) Wilcox # (Auto) Eos # (Auto) Baso # (Auto) Immature Gran # (Auto) ESR Sodium Potassium Chloride Carbon Dioxide Anion Gap BUN Creatinine Est Cr Clr Drug Dosing eGFR BUN/Creatinine Ratio Glucose POC Glucose 112 H 153 H Estimat Average Glucose Hemoglobin A1c Lactate Calcium Magnesium Troponin I High Sens 14.3 C-Reactive Protein Vitamin B12 Folate TSH Urine Color Urine Appearance Urine pH Ur Specific [place] Urine Protein Urine Glucose (UA) Urine Ketones Urine Blood Urine Nitrite Urine Bilirubin Urine Urobilinogen Ur Leukocyte Esterase Urine Comment Adenovirus (PCR) B. pertussis DNA (PCR) B.parapertussis DNA PCR C. pneumoniae DNA (PCR) Coronavirus OC43 (PCR) Coronavirus HKU1 (PCR) Coronavirus 229E (PCR) SARS-CoV-2 (PCR) Coronavirus NL63 (PCR) Hepatitis C Ab Screen Human Metapneumovir PCR Influenza Type A (PCR) Influenza Type B (PCR) M. pneumoniae (PCR) Parainfluenza 1 (PCR) Parainfluenza 2 (PCR) Parainfluenza 3 (PCR) Parainfluenza 4 (PCR) RSV (PCR) Entero/Rhino (PCR) 06/14/25 06/15/25 06/15/25 20:25 05:57 07:24 WBC 6.55 RBC 4.14 L Hgb 12.3 L Hct 37.8 L MCV 91.3 MCH 29.7 MCHC 32.5 RDW Std Deviation 43.9 RDW Coeff of Duyen 13.2 Plt Count 145 MPV 10.5 Immature Gran % (Auto) 0.3 Neut % (Auto) 66.6 Lymph % (Auto) 19.7 Wilcox % (Auto) 10.8 Eos % (Auto) 1.8 Baso % (Auto) 0.8 Neut # (Auto) 4.36 Lymph # (Auto) 1.29 Wilcox # (Auto) 0.71 H Eos # (Auto) 0.12 Baso # (Auto) 0.05 Immature Gran # (Auto) 0.02 ESR Sodium 145 Potassium 4.6 Chloride 110 H Carbon Dioxide 29 Anion Gap 6 BUN 27 H Creatinine 1.26 D Est Cr Clr Drug Dosing 62.3 eGFR 58.74 BUN/Creatinine Ratio 21.4 H Glucose 98 POC Glucose 145 H 89 Estimat Average Glucose 252 Hemoglobin A1c 10.4 H Lactate Calcium 8.6 Magnesium Troponin I High Sens C-Reactive Protein Vitamin B12 TNP Folate TSH Urine Color Urine Appearance Urine pH Ur Specific [place] Urine Protein Urine Glucose (UA) Urine Ketones Urine Blood Urine Nitrite Urine Bilirubin Urine Urobilinogen Ur Leukocyte Esterase Urine Comment Adenovirus (PCR) B. pertussis DNA (PCR) B.parapertussis DNA PCR C. pneumoniae DNA (PCR) Coronavirus OC43 (PCR) Coronavirus HKU1 (PCR) Coronavirus 229E (PCR) SARS-CoV-2 (PCR) Coronavirus NL63 (PCR) Hepatitis C Ab Screen Human Metapneumovir PCR Influenza Type A (PCR) Influenza Type B (PCR) M. pneumoniae (PCR) Parainfluenza 1 (PCR) Parainfluenza 2 (PCR) Parainfluenza 3 (PCR) Parainfluenza 4 (PCR) RSV (PCR) Entero/Rhino (PCR) 06/15/25 06/15/25 06/15/25 07:31 11:29 16:30 WBC RBC Hgb Hct MCV MCH MCHC RDW Std Deviation RDW Coeff of Duyen Plt Count MPV Immature Gran % (Auto) Neut % (Auto) Lymph % (Auto) Wilcox % (Auto) Eos % (Auto) Baso % (Auto) Neut # (Auto) Lymph # (Auto) Wilcox # (Auto) Eos # (Auto) Baso # (Auto) Immature Gran # (Auto) ESR Sodium Potassium Chloride Carbon Dioxide Anion Gap BUN Creatinine Est Cr Clr Drug Dosing eGFR BUN/Creatinine Ratio Glucose POC Glucose 93 97 Estimat Average Glucose Hemoglobin A1c Lactate Calcium Magnesium Troponin I High Sens C-Reactive Protein Vitamin B12 148 L Folate TSH Urine Color Urine Appearance Urine pH Ur Specific [place] Urine Protein Urine Glucose (UA) Urine Ketones Urine Blood Urine Nitrite Urine Bilirubin Urine Urobilinogen Ur Leukocyte Esterase Urine Comment Adenovirus (PCR) B. pertussis DNA (PCR) B.parapertussis DNA PCR C. pneumoniae DNA (PCR) Coronavirus OC43 (PCR) Coronavirus HKU1 (PCR) Coronavirus 229E (PCR) SARS-CoV-2 (PCR) Coronavirus NL63 (PCR) Hepatitis C Ab Screen Human Metapneumovir PCR Influenza Type A (PCR) Influenza Type B (PCR) M. pneumoniae (PCR) Parainfluenza 1 (PCR) Parainfluenza 2 (PCR) Parainfluenza 3 (PCR) Parainfluenza 4 (PCR) RSV (PCR) Entero/Rhino (PCR) PG Care Time/CCT Total # of Minutes Spent Total Time Spent with Patient: Total time spent is greater than 50% in coordination of care (as documented) at patient's floor/unit and/or counseling patient: Coding Level of Care Code 17204 SUB INP/OBS CARE 2/35MIN Diagnoses Tachycardia R00.0 Hypotension I95.9 Neck pain M54.2 TYLOR (acute kidney injury) N17.9 Fall W19.XXXA Venous stasis dermatitis I87.2 HTN (hypertension) I10 HLD (hyperlipidemia) E78.5 Type 2 diabetes mellitus with diabetic polyneuropathy, without long-term current use of insulin E11.42 Diabetes mellitus complication detail: with polyneuropathy Diabetes mellitus complication status: with neurologic complications 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
[2025-06-16 06:58] LABS: Anion Gap 5.0 (3-11); Calcium 9.0 mg/dl (8.6-10.3); Carbon Dioxide 26.0 mmol/L (21-32); Chloride 109.0 mmol/L (98-107); Potassium 4.4 mmol/L (3.5-5.1); Sodium 140.0 mmol/L (136-145)
[2025-06-16 07:04] LABS: Blood Urea Nitrogen 24.0 mg/dl (6-23); Creatinine Clr Calc Pharmacy 64.9 ml/min; Glucose 120.0 mg/dl (70-99(Fasting))
[2025-06-16 11:49] VITALS: RESP 18
--- NOTE | 2025-06-16 14:57 | Magnetic Resonance Report ---
MRI OF THE BRAIN WITHOUT IV CONTRAST CLINICAL HISTORY: Recent fall. Balance difficulty. COMPARISON STUDY: Head CT June 14, 2025. TECHNIQUE: MRI of the brain was performed utilizing various T1 and T2-weighted sequences in the axial , sagittal, and coronal planes. IV contrast was not administered for this examination. FINDINGS: Brain parenchyma: There are no foci of restricted diffusion to suggest acute infarct. No acute intrac ranial hemorrhage, midline shift or mass effect is present. No intracranial masses are identified on unenhanced exam. Mild white matter T2 hyperintensity suggest mild small vessel disease. There is mode rate atrophy. Ventricles, sulci, and cisterns: There is no hydrocephalus. The basal cisterns are patent. There are no extra-axial collections. Pituitary and sella: Unremarkable. Intracranial vasculature: Flow-voids for the major intracranial vessels are present. Orbits: Orbital contents are unremarkable. Sinuses and mastoids: Clear. Calvarium: No calvarial lesions are identified. Cervical cord: Partially visualized cervical spinal cord is normal in morphology and signal intensity . IMPRESSION: 1. No acute intracranial findings. 2. Moderate atrophy and mild small vessel disease. ACT 112: Negative or not required by law. Electronically signed by: Song Salmeron M.D. 06/16/2025 2:56 PM
[2025-06-16 16:06] VITALS: BP 118/67; PULSE 63; TEMP 97.3; O2SAT 96
--- NOTE | 2025-06-16 17:48 | Discharge Summary ---
Discharge Summary Date of Service June 16, 2025 Principal Dx & Hospital Course #1 = Principal Diagnosis (1) Tachycardia: (2) Hypotension: (3) Neck pain: (4) TYLOR (acute kidney injury): (5) Fall: (6) Venous stasis dermatitis: (7) HTN (hypertension): (8) HLD (hyperlipidemia): (9) DM type 2 (diabetes mellitus, type 2): (10) BPH with obstruction/lower urinary tract symptoms: (11) Vitamin B12 deficiency: Plan 75yo male with history of BPH, HTN, T2DM, hyperlipidemia, and B12 deficiency presents after developing posterior neck pain/stiffness this morning while at work. This improved quickly after ER presentation, and during his ER work-up was noted to have tachycardia with hypotension. #tachycardia with hypotension - -shortly after arrival it appears he developed an accelerated junctional rhythm -no evidence of a.fib or a.flutter -during his ER course his arrhythmia broke and he returned to NSR with HRs in the 70s/80s -while in the abnormal rhythm he was hypotensive -hypotension also resolved after the arrhythmia resolved -etiology for the apparent accelerated junctional rhythm -- uncertain -troponins negative -TSH normal -K and mag wnl -echo with preserved EF and normal LV wall motion -did have a few runs overnight of tachycardia - possibly the same rhythm - but no apparent symptoms -could consider beta sarah in rena of his ARB -consider 30day monitor upon discharge home and then have f/u with cardiology #YTLOR - -presenting creatinine 1.8 -prior creatinine 1.3 in October 2024 -u/a bland - no blood, no protein, no casts -s/p IV fluids overnight with resolution of TYLOR -suspect pre-renal from chronic lasix use in setting of ARB -would use lasix in future PRN rather than scheduled -cont to hold ARB #neck pain - resolved, has not recurred - -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 -fortunately no cervical spine fractures despite his fall in the ER parking lot #fall - -slipped/fell in the ER parking lot -fortunately no major injuries or fractures from such -PT/OT evals while here -B12 level is low --- replace IM while here, then PO supplementation upon d/c -consider empiric B1 supplementation x 1 month as they often co-exist #venous stasis dermatitis; ?early RLE cellulitis? - -?early RLE cellulitis -- but my suspicion for such was low -most of the RLE findings appear chronic (see photo from admission and today's photo) -there is no warmth, tenderness or signs of inflammation -would not give any further abx #BPH - -he is not on meds for such at home - #HTN - -with TYLOR HOLD lasix and olmesartan #uncontrolled T2DM - -a1c 10.4% -hold metformin -hold empagliflozin -BSGs remain excellent despite holding his meds -- suspect dietary noncompliance, etc. -novolog SSI #hyperlipidemia - -he is not on meds for such #h/o B12 deficiency - -again low level today - replace IM while here then PO at d/c #DVT proph - -checked doppler of RLE --> no DVT -if he stays beyond tomorrow will add chemical DVT proph observe again overnight on telemetry d/c tomorrow ? Admission HPI Per Admitting Provider 75yo male with history of BPH, HTN, T2DM, hyperlipidemia, and B12 deficiency presents after developing posterior neck pain/stiffness this morning while at work. He works at an [employer] near [place] and while at work the pain started. He ultimately asked a co-worker to bring him to the ER for evaluation. Denies any injury to his neck. He has had neck pain in the past but today's episode was much worse than typical. By the time of my admission assessment his pain was much better -- essentially resolved. Denied any frontal headache. By report while walking into the ER he slipped and fell. He was using his cane as he typically does but the cane slipped and he lost his footing. He did not pass out. He did not have prodromal dizziness. He does admit to feeling a little dizzy in the ER with standing, however. Denies any recent fevers, chills, loss of appetite, weight loss, URI symptoms, chest pain, cough, dyspnea, or abdominal pain. He mentions "tailbone pain" but this is chronic. He also has chronic voiding issues but none have changed recently. Finally, he does have chronic skin changes of both shins - worse on the right - but these, too, are chronic. Denies any pain, tenderness or warmth of the shins. During my admission assessment he was tachycardic on the heart monitor at ~120 BPM. EKG appears to show an accelerated junctional rhythm. Later in the ER stay this rhythm broke and HRs returned to the 70s/80s. Discharge Exam gen - lying in bed comfortably, NAD, nontoxic HENT - MMM neck - no JVD heart - RRR, s1 s2, no murmur lungs - CTA b/l abd - soft NT ND BS+; no HSM ext - chronic stasis changes b/l shins, worse on right; right lower leg is larger than the left lower leg; pulses b/l feet 2+ skin - severe stasis changes b/l shins; still no warmth, no redness, no crepitus, no tenderness right freedman; chronic xerosis and skin scaling of both shins psych - a/o x 3 updated photo from today's visit of RLE: Discharge Plan Discharge Items Patient Disposition: Home - Self-Care Reason For Visit: TACHYCARDIA, HYPOTENSION Discharge Diagnosis: 1. episodes of tachycardia - outpatient home heart monitor recommended -echocardiogram shows normal heart function and anatomy 2. hypotension - due to dehydration - resolved 3. diabetes 4. vitamin B12 deficiency 5. fall in parking lot - no injuries 6. normal MRI brain 7. neck pain - due to arthritis of the neck - resolved 8. acute kidney injury - resolved (your kidney number in the blood was high; it is now back to normal) Activity: Resume your previous activity Non-emergency contact: Primary Care Provider Call non-emergency contact if: you have any medication questions and your symptoms worsen Follow-up/Referrals: Magan Russ, [Primary Care Provider] - (please see Dr Russ within a week if possible ) Diet: Carb Consistent or DM2 Diet Texture: Easy to Chew Addtl Attending Provider Instructions: Mr Coronado, You were hospitalized due to having acute kidney injury (creatinine - the kidney number in the blood - was high), tachycardia (fast heart rate), and low blood pressure. The acute kidney injury resolved; the creatinine level has gone back to normal with IV Fluids. Your low blood pressure also normalized with giving you IV fluids and hold your furosemide & olmesartan. We saw multiple runs of tachycardia during your stay. Tachycardia means a fast heart rate. Fortunately it does not appear that you are symptomatic from the tachycardia. The type of tachycardia you are having appears to originate from the top part of your heart. Based on the heart monitoring we saw while you were hospitalized it looks to be a rhythm that usually does not cause problems or symptoms. To get more information about this rhythm, however, we are recommending you wear a heart monitor at your home for 1 week. This will be mailed to your house with instructions on how to use it. At this time you do not need special heart medicine. As noted above your echocardiogram (heart ultrasound) was normal. Your doppler ultrasound of your right leg did not show a DVT blood clot. Your MRI of the brain was normal -- no stroke, tumor, blood, etc were found. We did not find any infections while you were here. We did see plenty of arthritis on your neck CT scan - this likely caused your neck pain. You have fairly severe vitamin B12 deficiency. It is very important to take a supplement of B12 for at least 6 months to correct this deficiency. Untreated B12 deficiency can cause damage to your nervous system, anemia, and other problems. Finally, please note the following changes -- 1. take your furosemide water pill NEEDED only for swelling/edema of your feet/legs. Do not take it every day like you were previously. 2. HOLD your olmesartan. 3. HOLD your glipizide. 4. TAKE vitamin B12 1000mcg (1mg) daily x 6 months. This can be purchased [id number]. 5. TAKE vitamin B1 (thiamine) 200mg twice daily x 30 days. This can be purchased [id number]. We are in the process of ordering the heart monitor that you will wear for 7 days. Once processed it will be mailed to your home. Return to [facility] if - -you have fever over 100 degrees -you have recurrent falls -you have shortness of breath -you have chest pains -any other concerns It was our pleasure to care for you! -Gaurang Goff Pending Studies at Discharge: No Stand-Alone Forms: My [facility] cisimple, Work/School Release, Smoking Cessation Medications and DC Order Prescriptions: New cyanocobalamin (vitamin B-12) 1,000 mcg tablet 1,000 mcg PO DAILY Qty: 90 1RF Rx Instructions: purchase [id number]; take for at least 6 months. thiamine HCl (vitamin B1) 100 mg tablet 200 mg PO BID 30 Days Qty: 120 0RF Rx Instructions: purchase [id number] and take for 30 days then stop. Continued empagliflozin 25 mg tablet 25 mg PO DAILY 90 Days Qty: 90 3RF (DME) lancets 33 gauge misc See Rx Instructions .Route Qty: 100 5RF Rx Instructions: used to check blood sugars twice a day (DME) OneTouch Ultra Test Strip See Rx Instructions .Route Qty: 100 8RF Rx Instructions: check blood sugars twice a day metformin 750 mg tablet extended release 24 hr 750 mg PO BID 90 Days Qty: 180 3RF (DME) blood-glucose meter [OneTouch Ultra2 Meter] [facility] [place], [place] See Rx Instructions .Route Qty: 1 0RF Rx Instructions: As directed Changed furosemide 40 mg tablet 40 mg PO QAM PRN (Reason: swelling of legs/feet) Qty: 90 3RF Held glipizide 10 mg tablet extended release 24hr 10 mg PO DAILY Qty: 90 3RF Hold Instructions: hold unless Dr Russ wants you to resume olmesartan 20 mg tablet 20 mg PO DAILY Qty: 90 3RF Hold Instructions: hold unless Dr Russ wants you to resume Discharge Orders: Discharge Order (Routine); Ordered 06/16/25 Ordered By: Gaurang Prescott/Other Patient Handouts: Managing Type 2 Diabetes Admission Data Admit Date/Time: 06/14/25 14:28 Attending Provider: Gaurang Goff Admit Provider: Gaurang Goff Primary Care Provider: Magan Russ Other Providers: Gaurang Goff Hospital Stay Data Consultations 06/14/25 12:58 ED Decision to Admit Stat Diagnostic Imagining Performed 06/14/25 09:09 CT cervical spine wo con Stat CT head/brain wo con Stat 06/14/25 13:43 US venous doppler LE RT Stat 06/16/25 13:07 MR brain wo con Urgent Pending Results Patient Have Any Pending Studies at Discharge: No Discharge Instructions Given to Patient (Per Discharging Provider) Mr Coronado, Ronald were hospitalized due to having acute kidney injury (creatinine - the kidney number in the blood - was high), tachycardia (fast heart rate), and low blood pressure. The acute kidney injury resolved; the creatinine level has gone back to normal with IV Fluids. Your low blood pressure also normalized with giving you IV fluids and hold your furosemide & olmesartan. We saw multiple runs of tachycardia during your stay. Tachycardia means a fast heart rate. Fortunately it does not appear that you are symptomatic from the tachycardia. The type of tachycardia you are having appears to originate from the top part of your heart. Based on the heart monitoring we saw while you were hospitalized it looks to be a rhythm that usually does not cause problems or symptoms. To get more information about this rhythm, however, we are recommending you wear a heart monitor at your home for 1 week. This will be mailed to your house with instructions on how to use it. At this time you do not need special heart medicine. As noted above your echocardiogram (heart ultrasound) was normal. Your doppler ultrasound of your right leg did not show a DVT blood clot. Your MRI of the brain was normal -- no stroke, tumor, blood, etc were found. We did not find any infections while you were here. We did see plenty of arthritis on your neck CT scan - this likely caused your neck pain. You have fairly severe vitamin B12 deficiency. It is very important to take a supplement of B12 for at least 6 months to correct this deficiency. Untreated B12 deficiency can cause damage to your nervous system, anemia, and other problems. Finally, please note the following changes -- 1. take your furosemide water pill NEEDED only for swelling/edema of your feet/legs. Do not take it every day like you were previously. 2. HOLD your olmesartan. 3. HOLD your glipizide. 4. TAKE vitamin B12 1000mcg (1mg) daily x 6 months. This can be purchased [id number]. 5. TAKE vitamin B1 (thiamine) 200mg twice daily x 30 days. This can be purchased [id number]. We are in the process of ordering the heart monitor that you will wear for 7 days. Once processed it will be mailed to your home. Return to [facility] if - -you have fever over 100 degrees -you have recurrent falls -you have shortness of breath -you have chest pains -any other concerns It was our pleasure to care for you! -Gaurang Goff Coding Diagnoses Tachycardia R00.0 Hypotension I95.9 Neck pain M54.2 TYLOR (acute kidney injury) N17.9 Fall W19.XXXA Venous stasis dermatitis I87.2 HTN (hypertension) I10 HLD (hyperlipidemia) E78.5 Type 2 diabetes mellitus with diabetic polyneuropathy, without long-term current use of insulin E11.42 Diabetes mellitus nursing home insulin use: without nursing home use Diabetes mellitus complication status: with neurologic complications Diabetes mellitus complication detail: with polyneuropathy BPH with obstruction/lower urinary tract symptoms N40.1; N13.8 Vitamin B12 deficiency E53.8
--- NOTE | 2025-06-16 22:22 | Electrocardiogram Report ---
Test Reason : Blood Pressure : */* mmHG Vent. Rate : 121 BPM Atrial Rate : * BPM P-R Int : * ms QRS Dur : 86 ms QT Int : 336 ms P-R-T Axes : * -34 62 degrees QTcB Int : 477 ms Accelerated Junctional rhythm Left axis deviation Minimal voltage criteria for LVH, may be normal variant ( R in aVL ) Abnormal ECG When compared with ECG of 08-Sep-2023 14:44, Junctional rhythm has replaced Sinus rhythm Criteria for Anterior infarct are no longer Present Confirmed by Jaron Bergman ([id number]) on 06/16/2025 10:22:07 PM Referred By: REFERRED SELF Confirmed By: Jaron Bergman
== END 2025-06-16 18:08 | disposition home or self-care (01) | DRG 309 ==
LOC: ED 08:26 → INTOOBSV 14:28 → 4W 14:28
DX: K58.9 Irritable bowel syndrome, unspecified; M47.812 Spondylosis without myelopathy or radiculopathy, cervical region; N40.0 Benign prostatic hyperplasia without lower urinary tract symptoms; E11.42 Type 2 diabetes mellitus with diabetic polyneuropathy; K21.9 Gastro-esophageal reflux disease without esophagitis; I95.9 Hypotension, unspecified; E78.5 Hyperlipidemia, unspecified; R00.0 Tachycardia, unspecified; N17.9 Acute kidney failure, unspecified; Z79.84 Long term (current) use of oral hypoglycemic drugs; Z79.899 Other long term (current) drug therapy; E53.8 Deficiency of other specified B group vitamins; M54.2 Cervicalgia; I87.2 Venous insufficiency (chronic) (peripheral); E11.65 Type 2 diabetes mellitus with hyperglycemia; L03.115 Cellulitis of right lower limb; I10 Essential (primary) hypertension